=== PATIENT | male | born 1955 | race Caucasian/White ===

== ENCOUNTER → 2016-12-22 | Outpatient (CLI) | payer BC ==
--- NOTE | 2016-12-22 21:56 | REP ---
Clinical: Trauma. Contusion. Technique: AP, lateral, bilateral oblique views of the left first toe. Findings: Age-related degenerative changes are appreciated including subtle cortical irregularity/spurring and joint space narrowing at the metatarsophalangeal and interphalangeal joints. No obvious acute fracture dislocation. No subcutaneous emphysema or radiodense foreign body. Impression: Age-related degenerative changes. No acute fracture or dislocation appreciated. Signed by Morris Bourgeois MD 12/22/2016 09:48 P
== END ==
LOC: M WUC 14:35
PROVIDERS: ATTEND Physician Assistant
DX: S90.212A Contusion of left great toe with damage to nail, initial encounter (principal); X58.XXXA Exposure to other specified factors, initial encounter; Y92.9 Unspecified place or not applicable; Y93.9 Activity, unspecified; Y99.9 Unspecified external cause status

== ENCOUNTER 2017-09-05 03:31 | Emergency (ER) | payer BC ==
[2017-09-05 04:32] LABS: BASO # 0.2 10^3/uL (0.0-0.2); BASO % 0.6 % (0.0-1.0); HEMATOCRIT 49.7 % (42.0-52.0); HEMOGLOBIN 16.1 g/dl (13.5-17.5); IMMATURE GRANULOCYTE % 2.3 % (0-3.0); LYMPH # 2.1 10^3/uL (1.5-4.5); LYMPH % 8.6 % (24.0-44.0); MEAN CORPUSCULAR HEMOGLOBIN 27.5 pg (27.0-33.0); MEAN CORPUSCULAR HGB CONC 32.4 g/dl (32.0-36.5); MONO # 1.4 10^3/uL (0.0-0.8); MONO % 5.7 % (0.0-5.0); NEUTROPHILS # 20.2 10^3/uL (1.8-7.7); NEUTROPHILS % 82.8 % (36.0-66.0); PLATELET COUNT, AUTOMATED 254 10^3/uL (150-450); RED BLOOD COUNT 5.85 10^6/uL (4.30-6.10); WHITE BLOOD COUNT 24.4 10^3/uL (4.0-10.0)
[2017-09-05 04:48] LABS: KETONE, URINE AUTO RFX NEGATIVE (NEGATIVE); LEUKOCYTE ESTERASE UR AUTO RFX NEGATIVE (NEGATIVE); MUCUS, URINE RFX SMALL (NEGATIVE); NITRITE, URINE AUTO RFX NEGATIVE (NEGATIVE); RBC, URINE AUTO RFX 2 /HPF (0-3); SPECIFIC GRAVITY UR AUTO RFX 1.028 (1.002-1.035); SQUAM EPITHELIAL CELL UR AURFX 0 /HPF (0-6); WBC, URINE AUTO RFX 0 /HPF (0-3)
[2017-09-05 04:55] LABS: ALBUMIN/GLOBULIN RATIO 0.85 (1.00-1.93); ALKALINE PHOSPHATASE 196 U/L (45-117); ALT/SGPT 28 U/L (12-78); ANION GAP 6 MEQ/L (8-16); AST/SGOT 19 U/L (7-37); BILIRUBIN,DIRECT 0.1 MG/DL (0.0-0.2); BILIRUBIN,TOTAL 0.4 MG/DL (0.2-1.0); BLOOD UREA NITROGEN 22 MG/DL (7-18); CALCIUM LEVEL 9.1 MG/DL (8.8-10.2); CARBON DIOXIDE LEVEL 32 MEQ/L (21-32); CHLORIDE LEVEL 102 MEQ/L (98-107); CREATININE FOR GFR 1.33 MG/DL (0.70-1.30); GLOMERULAR FILTRATION RATE 57.6 (>49); LIPASE 93 U/L (73-393); POTASSIUM SERUM 4.7 MEQ/L (3.5-5.1); SODIUM LEVEL 140 MEQ/L (136-145); TOTAL PROTEIN 8.7 GM/DL (6.4-8.2)
[2017-09-05 05:14] LABS: GLUCOSE, FASTING 422 MG/DL (70-100)
[2017-09-05] MEDS ORDERED: HumuLIN R (REGULAR) INSULIN (NovoLIN R) **100U/ML** PER UNIT IV (05:30)
[2017-09-05] MEDS: HumuLIN R (REGULAR) INSULIN (NovoLIN R) **100U/ML** PER UNIT IV (05:49)
[2017-09-05] MEDS: NS 500 ML IV (05:49)
[2017-09-05 09:42] LABS: BEDSIDE GLUCOSE 362 MG/DL (80-115)
[2017-09-05 09:42] LABS: BEDSIDE GLUCOSE 284 MG/DL (80-115)
== END 2017-09-05 06:48 | disposition home or self-care (01) ==
LOC: M ED 03:31
DX: E09.65 Drug or chemical induced diabetes mellitus with hyperglycemia (principal); I10 Essential (primary) hypertension; E78.5 Hyperlipidemia, unspecified; J45.909 Unspecified asthma, uncomplicated; K21.9 Gastro-esophageal reflux disease without esophagitis; E03.9 Hypothyroidism, unspecified; F17.200 Nicotine dependence, unspecified, uncomplicated; Z79.82 Long term (current) use of aspirin; Z79.84 Long term (current) use of oral hypoglycemic drugs; Z79.899 Other long term (current) drug therapy
CPT/HCPCS: 83690

== ENCOUNTER 2018-03-22 10:43 | Day surgery (SDC) | payer OTHER, BC ==
[2018-03-22] MEDS: NS 1,000 ML IV (11:00)
[2018-03-22] MEDS ORDERED: PROPOFOL 500 MG/50 ML VIAL As Ordered (12:03)
[2018-03-22] MEDS ORDERED: LIDOCAINE 2% INJ 100 MG/5 ML SDV (FOR ANES.) As Ordered (12:03)
== END 2018-03-22 12:30 | disposition home or self-care (01) ==
LOC: M OPP 10:43
DX: K64.0 First degree hemorrhoids (principal); K57.30 Diverticulosis of large intestine without perforation or abscess without bleeding; I10 Essential (primary) hypertension; E03.9 Hypothyroidism, unspecified; R12 Heartburn; J44.9 Chronic obstructive pulmonary disease, unspecified; Z79.82 Long term (current) use of aspirin; Z79.84 Long term (current) use of oral hypoglycemic drugs; Z79.899 Other long term (current) drug therapy
CPT/HCPCS: 45378

== ENCOUNTER 2018-05-01 11:30 | Emergency (ER) | payer OTHER, BC ==
[~2018-05-01] VITALS: Ht 177.8 cm; Wt 118.2 kg
[~2018-05-01 11:30] MED LIST: ASPI1TAB PO; ATOR40TA75; LISI40TA; MELO15TA28 PO; METF500T13; NAPR-885; OMEP20CA3; PRED20TA; PROAAER10; SYMB16INH INH; SYMBICORT; SYNT25TA; VITA200016 PO
[2018-05-01 12:45] VITALS: BP 168/78
--- NOTE | 2018-05-01 12:47 | REP ---
RIGHT SHOULDER: Three views. HISTORY: Right shoulder pain. Question injury. FINDINGS: The right glenohumeral and acromioclavicular joints are normally aligned. There is no evidence of fracture or subluxation. Periarticular soft tissues are unremarkable. IMPRESSION: Negative right shoulder radiographs. Electronically Signed by Asaf Hutchison MD 05/01/2018 07:26 P
== END 2018-05-01 12:50 | disposition home or self-care (01) ==
LOC: M ED 11:30
DX: M25.511 Pain in right shoulder (principal); E11.9 Type 2 diabetes mellitus without complications; J44.9 Chronic obstructive pulmonary disease, unspecified; K21.9 Gastro-esophageal reflux disease without esophagitis; Z87.891 Personal history of nicotine dependence

== ENCOUNTER → 2018-05-11 | Outpatient (REF) | payer MEDICARE, BC | LOC: M LAB REF 11:48 | PROVIDERS: ATTEND Physician Assistant | DX: N48.1 Balanitis (principal); N34.1 Nonspecific urethritis ==

== ENCOUNTER 2019-04-12 20:41 | Emergency (ER) | payer BC, OTHER ==
[~2019-04-12] VITALS: Ht 177.8 cm; Wt 120.0 kg
[~2019-04-12 20:41] MED LIST changes: -ASPI1TAB PO; +ASPI81TA26 PO; +ATOR1TAB21 PO; +LOSA100T50 PO; +OMEP-172 PO; -OMEP20CA3; -PROAAER10; +PROAAER10 INH; -SYNT25TA; +SYNT25TA PO
[2019-04-12] MEDS ORDERED: HYDR-3713 PO (20:50)
[2019-04-12] MEDS ORDERED: NS 1,000 ML IV ONE (21:30)
[2019-04-12 21:49] LABS: BASO # 0.1 10^3/uL (0.0-0.2); BASO % 0.7 % (0.0-1.0); EOS # 0.1 10^3/uL (0.0-0.5); EOS % 0.5 % (0.0-3.0); HEMATOCRIT 43.4 % (42.0-52.0); HEMOGLOBIN 14.1 g/dl (13.5-17.5); LYMPH # 1.3 10^3/uL (1.5-5.0); LYMPH % 6.4 % (24.0-44.0); MEAN CORPUSCULAR HEMOGLOBIN 27.5 pg (27.0-33.0); MEAN CORPUSCULAR HGB CONC 32.5 g/dl (32.0-36.5); MEAN CORPUSCULAR VOLUME 84.8 fl (80.0-96.0); MONO # 1.3 10^3/uL (0.0-0.8); MONO % 6.6 % (0.0-5.0); NEUTROPHILS # 16.6 10^3/uL (1.5-8.5); NEUTROPHILS % 84.1 % (36.0-66.0); PLATELET COUNT, AUTOMATED 230 10^3/uL (150-450); RED BLOOD COUNT 5.12 10^6/uL (4.30-6.10); WHITE BLOOD COUNT 19.8 10^3/uL (4.0-10.0)
[2019-04-12 21:59] LABS: APPEARANCE, URINE CLOUDY (CLEAR); BACTERIA, URINE AUTO NEGATIVE (NEGATIVE); BILIRUBIN, URINE AUTO NEGATIVE (NEGATIVE); BLOOD, URINE BLOOD 2+ (NEGATIVE); COLOR, URINE YELLOW (YELLOW); GLUCOSE, URINE (UA) AUTO 1+ mg/dL (NEGATIVE); KETONE, URINE AUTO NEGATIVE (NEGATIVE); LEUKOCYTE ESTERASE, URINE AUTO NEGATIVE (NEGATIVE); NITRITE, URINE AUTO NEGATIVE (NEGATIVE); PROTEIN, URINE AUTO NEGATIVE (NEGATIVE); RBC, URINE AUTO 9 /HPF (0-3); SPECIFIC GRAVITY URINE AUTO 1.024 (1.002-1.035); SQUAMOUS EPITHELIAL CELL UR AU 0 /HPF (0-6); URIC ACID CRYSTALS LARGE; UROBILINOGEN, URINE AUTO 0.2 mg/dL (0.0-2.0); WBC, URINE AUTO 0 /HPF (0-3)
[2019-04-12] MEDS ORDERED: ONDANSETRON 4MG/2ML VIAL (J2405) IV ONE (22:15)
[2019-04-12 22:17] LABS: ALBUMIN 3.7 GM/DL (3.2-5.2); ALT/SGPT 25 U/L (12-78); BILIRUBIN,DIRECT 0.1 MG/DL (0.0-0.2); BILIRUBIN,TOTAL 0.5 MG/DL (0.2-1.0); BLOOD UREA NITROGEN 22 MG/DL (7-18); CALCIUM LEVEL 8.8 MG/DL (8.8-10.2); CARBON DIOXIDE LEVEL 26 MEQ/L (21-32); CHLORIDE LEVEL 106 MEQ/L (98-107); CREATININE FOR GFR 1.51 MG/DL (0.70-1.30); GLOMERULAR FILTRATION RATE 49.6 (>49); GLUCOSE, FASTING 193 MG/DL (70-100); LIPASE 52 U/L (73-393); POTASSIUM SERUM 4.1 MEQ/L (3.5-5.1); SODIUM LEVEL 141 MEQ/L (136-145); TOTAL PROTEIN 7.6 GM/DL (6.4-8.2)
[2019-04-12 22:39] LABS: CK-MB VALUE MASS 1.9 NG/ML (<3.6); CPK CREATINE PHOSPHOKINASE 237 U/L (39-308); TROPONIN I < 0.02 NG/ML (< 0.10)
[2019-04-12] MEDS ORDERED: ACETAMINOPHEN 325 MG TAB PO ONE (23:30)
[2019-04-13] MEDS ORDERED: ACETAMINOPHEN TAB 650MG DOSE (2X325MG) PO ONE
--- NOTE | 2019-04-13 01:01 | REPVR ---
PROCEDURE INFORMATION: Exam: CT Abdomen And Pelvis Without Contrast Exam date and time: 04/12/2019 11:47 PM Age: 63 years old Clinical indication: Abdominal pain; Flank; Patient HX: PT complaining left side pain not right as entered; Additional info: Right flank pain, hematuria TECHNIQUE: Imaging protocol: Computed tomography of the abdomen and pelvis without contrast. Radiation optimization: All CT scans at this facility use at least one of these dose optimization techniques: automated exposure control; mA and/or kV adjustment per patient size (includes targeted exams where dose is matched to clinical indication); or iterative reconstruction. COMPARISON: No relevant prior studies available. FINDINGS: Liver: Enlarged low attenuating liver, evidence of hepatic steatosis. Gallbladder and bile ducts: Cholecystectomy clips in the right upper quadrant. Pancreas: Normal. No ductal dilation. Spleen: Normal. No splenomegaly. Adrenals: Normal. No mass. Kidneys and ureters: 1.4 cm left renal exophytic cyst. Punctate papillary calcification in the left kidney. Mild to moderate left renal hydronephrosis without hydroureter. Mild left perinephric stranding. Question already passed calculus versus pyelonephritis, or other obstructing soft tissue lesion, recommend urology followup. Stomach and bowel: Mild colonic diverticulosis without evidence for acute diverticulitis. Appendix: No evidence of appendicitis. Intraperitoneal space: Unremarkable. No free air. No significant fluid collection. Vasculature: Unremarkable. No abdominal aortic aneurysm. Lymph nodes: Unremarkable. No enlarged lymph nodes. Bladder: Unremarkable as visualized. Reproductive: Unremarkable as visualized. Bones/joints: Moderate lumbar spondylosis. Soft tissues: Fat protruding right inguinal hernia. IMPRESSION: Punctate papillary calcification in the left kidney. Mild to moderate left renal hydronephrosis without hydroureter. Mild left perinephric stranding. Question already passed calculus versus pyelonephritis, or other obstructing soft tissue lesion, recommend urology followup. Electronically signed by: Rafael Ruiz On 04/13/2019 01:00:58 AM
[2019-04-13] MEDS ORDERED: KEFL500C17 PO (01:19)
[2019-04-13 01:33] VITALS: BP 206/112
[2019-04-13] MEDS ORDERED: GLIM4TAB3 PO (09:04)
--- NOTE | 2019-04-13 22:37 | ECGEPIP ---
[facility] - ED Test Date: 2019-04-12 Pat Name: DERIK FITZGERALD Department: Room: - Gender: Male [employer] Member: leah : [id number] Requested By: Sisi Patrick FRENCH PASTRY COOK Order Number: [id number] Reading MD: Rafael Orta Measurements Intervals [place] Rate: 87 P: 63 SD: 160 QRS: -53 QRSD: 106 T: 42 QT: 360 QTc: 435 Interpretive Statements SINUS RHYTHM Left axis deviation Delayed anterior R wave progression Nonspecific T wave abnormality Baseline artifact Similar to tracing done 03-09-19 but with more artifact Electronically Signed on 04-13-2019 22:37:02 EST by Rafael Orta
== END 2019-04-13 01:35 | disposition home or self-care (01) ==
LOC: M ED 20:41
DX: N13.2 Hydronephrosis with renal and ureteral calculous obstruction (principal); D72.829 Elevated white blood cell count, unspecified; E11.9 Type 2 diabetes mellitus without complications; I10 Essential (primary) hypertension; J44.9 Chronic obstructive pulmonary disease, unspecified; E03.9 Hypothyroidism, unspecified; K21.9 Gastro-esophageal reflux disease without esophagitis; N13.30 Unspecified hydronephrosis; N20.0 Calculus of kidney; Z79.4 Long term (current) use of insulin; Z79.899 Other long term (current) drug therapy
CPT/HCPCS: 74176; 80048; 80076; 81001; 82550; 82553; 83690; 84484; 85025; 87086; 93005; 96361; 96374; 99284; J2405

== ENCOUNTER 2019-04-13 08:31 | Inpatient (IN) | payer MEDICARE, BC ==
[~2019-04-13] VITALS: Ht 177.8 cm; Wt 120.2 kg
[~2019-04-13 08:31] MED LIST changes: +HYDR-3713 PO; +KEFL500C17 PO
[2019-04-13 09:04] LABS: BASO # 0.1 10^3/uL (0.0-0.2); BASO % 0.8 % (0.0-1.0); EOS # 0.2 10^3/uL (0.0-0.5); EOS % 1.1 % (0.0-3.0); HEMATOCRIT 44.3 % (42.0-52.0); HEMOGLOBIN 13.9 g/dl (13.5-17.5); LYMPH # 1.2 10^3/uL (1.5-5.0); LYMPH % 7.1 % (24.0-44.0); MEAN CORPUSCULAR HEMOGLOBIN 27.3 pg (27.0-33.0); MEAN CORPUSCULAR HGB CONC 31.4 g/dl (32.0-36.5); MEAN CORPUSCULAR VOLUME 86.9 fl (80.0-96.0); MONO # 1.6 10^3/uL (0.0-0.8); MONO % 9.1 % (0.0-5.0); NEUTROPHILS # 13.7 10^3/uL (1.5-8.5); NEUTROPHILS % 80.2 % (36.0-66.0); PLATELET COUNT, AUTOMATED 207 10^3/uL (150-450); WHITE BLOOD COUNT 17.1 10^3/uL (4.0-10.0)
[2019-04-13] MEDS ORDERED: GLIM4TAB3 PO (09:04)
[2019-04-13] MEDS ORDERED: ONDANSETRON 4MG/2ML VIAL (J2405) IV ONE (09:15)
[2019-04-13] MEDS: MORPHINE 4 MG/ML 1ML VIAL/SYRINGE (J2270) IV PRN ×2 (09:16→09:58)
[2019-04-13 09:23] LABS: BLOOD UREA NITROGEN 20 MG/DL (7-18); CALCIUM LEVEL 8.3 MG/DL (8.8-10.2); CARBON DIOXIDE LEVEL 26 MEQ/L (21-32); CHLORIDE LEVEL 107 MEQ/L (98-107); CREATININE FOR GFR 1.74 MG/DL (0.70-1.30); GLOMERULAR FILTRATION RATE 42.1 (>49); GLUCOSE, FASTING 165 MG/DL (70-100); POTASSIUM SERUM 3.8 MEQ/L (3.5-5.1); SODIUM LEVEL 139 MEQ/L (136-145)
[2019-04-13] MEDS ORDERED: HYDROMORPHONE HCL 0.5 MG/ 0.5 ML SYRINGE (J1170 PER 1) IV PRN ×3 (10:15→10:30)
[2019-04-13] MEDS ORDERED: NS 1,000 ML IV SCH (10:15)
[2019-04-13] MEDS ORDERED: ACETAMINOPHEN TAB 650MG DOSE (2X325MG) PO PRN (10:30)
[2019-04-13] MEDS: NS 1,000 ML IV SCH ×2 (10:33→20:41)
[2019-04-13 10:58] LABS: CPK CREATINE PHOSPHOKINASE 230 U/L (39-308); MB/CK RELATIVE INDEX 0.87 (< OR =4); TROPONIN I < 0.02 NG/ML (< 0.10)
[2019-04-13] MEDS ORDERED: cefTRIAXone SOD 1 GM in D5W MINI-BAG PLUS 50 ML IV SCH (11:00)
[2019-04-13] MEDS ORDERED: GLUCAGON FOR INJ 1 MG VIAL (J1610) SC PRN (11:30)
[2019-04-13] MEDS ORDERED: GLUCOSE 4 GM CHEW TABLET PO PRN (11:30)
[2019-04-13] MEDS ORDERED: DEXTROSE 50% 50 ML SYRINGE IV PRN (11:30)
[2019-04-13] MEDS ORDERED: ALBUTEROL SULFATE 2.5 MG/0.5 ML INH NEB SOLN INH PRN (11:30)
[2019-04-13] MEDS: ALBUTEROL SULFATE 2.5 MG/0.5 ML INH NEB SOLN INH SCH ×3 (12:00→19:50)
[2019-04-13] MEDS ORDERED: LABETALOL HCL 100 MG/20 ML VIAL IV STA (12:01)
[2019-04-13] MEDS: SYMBICORT 160/4.5MCG INHALER 6GM INH SCH ×2 (12:06→19:51)
[2019-04-13 12:30] VITALS: BP 160/78
--- NOTE | 2019-04-13 12:37 | REP ---
Urinary tract sonogram: History: Hydronephrosis. Comparison is made with the previous day's CT study. Findings: Scanning at the level of the urinary bladder shows no abnormality. Emptying ureteral jets are confirmed from both ureters on color Doppler interrogation of the bladder lumen. Renal cortical echogenicity pattern is normal bilaterally and contours are smooth. There is no evidence of hydronephrosis, cyst, mass, or calculus in the right kidney. On the left there is mild hydronephrosis. An echogenic focus is seen in the lower pole left kidney suggesting a stone. The right kidney measures 12.0 x 6.1 x 6.0 cm. Left renal dimensions are 12.9 x 7.3 x 7.1 cm. Impression: Mild left-sided hydronephrosis. Probable intrarenal calculus lower pole left kidney. The hydronephrosis on the left appears improved. Otherwise negative urinary tract sonography. Electronically Signed by Asaf Hutchison MD 04/13/2019 12:28 P
--- NOTE | 2019-04-13 13:09 | HPEPDOC ---
General Date of Admission Apr 13, 2019 at 10:21 Date of Service: Apr 13, 2019 Chief Complaint The patient is a 63-year-old male Who presented to the emergency room with complaints of left-sided flank pain radiating to his groin History of Present Illness Patient is 63-year-old male with a PMHx of HTN, DLP, DM2, COPD, Hypothyroidism, Medullary Sponge Kidney disease and GERD who presented to the emergency room with complaints of left-sided flank pain radiating to his groin. Patient reports that he was in the emergency room the day prior for similar symptoms. Patient was found at that point to have a left-sided hydronephrosis and hydroureter based on CT imaging. He was evaluated by the ER provider, and it was hypothesized that he had recently passed a stone. He was advised to go home with oral antibiotics and follow-up with urology as an outpatient. Patient reports that upon returning home, his pain continued to persist and is combative to the emergency room for further evaluation. Patient has reported that the pain occurs on a left-sided flank and radiates down his left groin. He reports the pain as a 9/10, sharp nature and occurs intermittently. Patient reports he has associated nausea without vomiting. Denies any urinary discomfort. Denies any diarrhea currently, but did report a few days of diarrhea prior. Currently, patient reports constipation. Patient has not reported any fevers or chills in the last few weeks. Patient denied chest pain, shortness of breath, palpitations. Patient reports that his appetite is generally normal and denies any significant change in his weight Home Medications Scheduled Atorvastatin Calcium (Atorvastatin Calcium) 20 Mg Tablet, 20 MG PO DAILY, (Reported) Budesonide/Formoterol (Symbicort 160-4.5 Mcg Inhaler) 60 Puff/Inhaler Aers, 2 PUFF INH BID, (Reported) Glimepiride (Glimepiride) 4 Mg Tablet, 4 MG PO QHS, (Reported) Levothyroxine Sodium (Synthroid) 25 Mcg Tab, 25 MCG PO DAILY, (Reported) Losartan Potassium (Losartan Potassium) 100 Mg Tablet, 100 MG PO DAILY, (Reported) Meloxicam (Meloxicam) 15 Mg Tab, 15 MG PO QHS, (Reported) Metformin HCl (Metformin HCl) 500 Mg Tab, 1,000 MG BID, (Reported) Omeprazole (Omeprazole) 20 Mg Cap, 40 MG PO QHS, (Reported) Scheduled PRN Albuterol Sulfate (Proair Hfa) 108 Mcg/Act Aer, 2 PUFF INH Q4H PRN for SHORTNESS OF BREATH, (Reported) Allergies Coded Allergies: No Known Allergies (Verified , 10/29/02) Past Medical History Medical History HTN, DLP, DM2, COPD, Hypothyroidism, Medullary Sponge Kidney disease and GERD Surgical History Cholecystectomy Right shoulder arthroscopy for rotator cuff injury Family History - Patients family history has been reviewed and is currently noncontributory to the current hospitalization Social History - Denies the use of alcohol or illicit drugs; patient reports that he quit smoking about 6 years ago that was a smoker of 40 years at 2-3 PPD - Denies recent travel or sick contacts - Lives alone - Occupation; reports that he works part-time at [employer] Review of Systems Other systems 10 point review of systems complete, all negative otherwise stated in HPI Vital Signs - Vitals: BP 178/84, HR 88, RR 18, Sat 99%RA, Temp 97.6F - General: Lying in bed, No acute distress, Speaking in full sentences, AAOx3 - HEENT: NC, AT, PERRLA, EOMI - CVS: RRR, +S1S2 - Lungs: Fair air entry bilaterally, No appreciable wheezing / rales / rhonchi - Abdomen: Soft, Non-distended, +L CVA tenderness, nontender abdomen - Extremities: No lower extremity edema, No calf tenderness - Neuro: No focal motor or sensory deficit - Skin: No visible rashes Laboratory Data Labs 24H Laboratory Tests 2 04/13/19 08:54: Immature Granulocyte % (Auto) 1.7, Neutrophils (%) (Auto) 80.2H, Lymphocytes (%) (Auto) 7.1L, Monocytes (%) (Auto) 9.1H, Eosinophils (%) (Auto) 1.1, Basophils (%) (Auto) 0.8, Neutrophils # (Auto) 13.7H, Lymphocytes # (Auto) 1.2L, Monocytes # (Auto) 1.6H, Eosinophils # (Auto) 0.2, Basophils # (Auto) 0.1, Nucleated Red Blood Cells % (auto) 0.0, Anion Gap 6L, Glomerular Filtration Rate 42.1L, Uric Acid 5.0, Calcium Level 8.3L, Total Creatine Kinase 230, Creatine Kinase MB 2.0, Creatine Kinase MB Relative Index 0.87, Troponin I < 0.02 04/13/19 10:49: Lactic Acid Level 1.1 CBC/BMP Laboratory Tests 04/13/19 08:54 Plan / VTE VTE Prophylaxis Ordered?: Yes Plan Plan Left flank pain radiating to groin - likely 2/2 renal stone / possible pyelonephritis - Patient has returned back to the emergency room after being discharged for what was suspected as the recently past stone - Physical does reveal left CVA tenderness - Patient remains hemodynamically stable and afebrile - Leukocytosis has improved from yesterday; no lactic acidosis - Urinalysis from yesterday did not reveal any significant signs of infection, but did indicate 2+ blood - Urine culture from 04/12/2019 remains pending - CT abdomen / pelvis 04/12: Punctate papillary calcification in the left kidney. Mild to moderate left renal hydronephrosis without hydroureter. Mild left perinephric stranding. Question already passed calculus versus pyelonephritis, or other obstructing soft tissue lesion, recommend urology followup. - Renal US 04/13: Mild left-sided hydronephrosis. Probable intrarenal calculus lower pole left kidney. The hydronephrosis on the left appears improved. Otherwise negative urinary tract sonography. - At this point, will continue with IV fluid hydration and provide coverage with ceftriaxone pending urine culture - Will continue with pain control with Dilaudid; will titrate down as tolerated - Urology has been called on consultation; discussed case with Dr. Noland, who may possibly take the patient for stenting later today Acute kidney injury - Patients baseline creatinine appears to be ~1.1 - Creatinine currently is at 1.74 which is elevated from yesterday of 1.51 - Will measure strict ins and outs - Will continue with IV fluid hydration Hypertensive urgency - likely 2/2 pain - Patient has not taken any of his a.m. blood pressure medications this morning - Will hold losartan (re: NELY) - will give single dose of labetalol and start amlodipine DLP - c/w atorvastatin DM2 - c/w ISS COPD - No evidence of exacerbation - c/w inhaled therapy as ordered Hypothyroidism - c/w levothyroxine Medullary Sponge Kidney disease GERD - c/w Omeprazole DVT prophylaxis - Will start heparin JOSE CUMMINS MD Apr 13, 2019 13:09
[2019-04-13] MEDS: HEPARIN SOD (PORCINE) 5000 UNITS/ML VIAL SC SCH ×2 (13:12→20:42)
[2019-04-13] MEDS: HumaLOG INSULIN (NovoLOG) PER UNIT SC SCH ×2 (13:13→17:55)
[2019-04-13] MEDS: ATORVASTATIN 20 MG TAB PO SCH (13:13)
[2019-04-13] MEDS: LEVOTHYROXINE 25MCG TABLET (0.025MG) PO SCH (13:14)
[2019-04-13 13:17] VITALS: BP 180/99
[2019-04-13] MEDS: amLODIPine 5 MG TAB PO SCH (13:17)
--- NOTE | 2019-04-13 14:41 | SMCUROLCON ---
Urology Consultation General Date of Consultation 04/13/19 Reason For Consultation This patient is seen for Acute Renal Insufficiency. History of Present Illness The patient is a 63 year-old man with a several day history of flank pain and pelvic pain with nausea and vomiting. Pt was in the ED yesterday. CT non contrast negative for ureteral calculi. Serum Cr has been rising. Pt reports that he has been having severe pain and has not been able to tolerate POs. Past Medical History Medical History reviewed Surgical Hstory reviewed Family History Significant Family History: Noncontributory Social History Alcohol: Denies Medications Current Medications Current Medications Medications (Trade) Dose Ordered Sig/Susan Route PRN Reason Start Time Stop Time Status Last Admin Dose Admin Acetaminophen (Tylenol Tab) 650 mg Q4H PRN PO PAIN OR FEVER 04/13/19 10:30 Albuterol Sulfate (Proventil Neb) 2.5 mg RQ2H PRN INH SOB/WHEEZING 04/13/19 11:30 Albuterol Sulfate (Proventil Neb) 2.5 mg RQID INH 04/13/19 12:00 Amlodipine Besylate (Norvasc) 5 mg DAILY PO 04/13/19 09:00 04/13/19 13:17 Atorvastatin Calcium (Lipitor) 20 mg DAILY PO 04/13/19 09:00 04/13/19 13:13 Budesonide/ Formoterol Fumarate (Symbicort 160/ 4.5mcg) 2 puff RBID INH 04/13/19 08:00 Ceftriaxone Sodium 1 gm/ Dextrose 50 ml @ 100 mls/hr Q24H IV 04/13/19 11:00 04/13/19 13:16 Dextrose (Dextrose 50%) 25 ml ASDIRECTED PRN IV SEE LABEL COMMENTS 04/13/19 11:30 Glucagon (Glucagon) 1 mg ASDIRECTED PRN SC SEE LABEL COMMENTS 04/13/19 11:30 Glucose (Glucose) 16 GM ASDIRECTED PRN PO SEE LABEL COMMENTS 04/13/19 11:30 Heparin Sodium (Porcine) (Heparin) 5,000 units Q8H SC 04/13/19 14:00 04/13/19 13:12 Home Med (Med Rec Complete!) ASDIRECTED XX 04/13/19 10:45 04/13/19 10:40 DC Hydromorphone HCl (Dilaudid) 0.3 mg Q3HP PRN IV MILD PAIN (PS 1-4) 04/13/19 10:30 Hydromorphone HCl (Dilaudid) 0.5 mg Q30M PRN IV MODERATE PAIN (PS 5-7) 04/13/19 10:15 04/13/19 10:30 DC 04/13/19 10:26 Hydromorphone HCl (Dilaudid) 0.6 mg Q3HP PRN IV MODERATE PAIN (PS 5-7) 04/13/19 10:30 Insulin Human Lispro (HumaLOG INSULIN) SEE PROTOCOL TABLE AC SC 04/13/19 12:00 04/13/19 13:13 Insulin Human Lispro (HumaLOG INSULIN) SEE PROTOCOL TABLE QHS SC 04/13/19 21:00 Labetalol HCl (Normodyne, Trandate) 10 mg STAT STAT IV 04/13/19 12:01 04/13/19 12:03 DC Levothyroxine Sodium (Synthroid) 25 mcg DAILY@0600 PO 04/13/19 06:00 04/13/19 13:14 Morphine Sulfate (Morphine Sulfate Inj) 4 mg Q30M PRN IV SEVERE PAIN (PS 8-10) 04/13/19 09:15 04/13/19 09:58 DC 04/13/19 09:58 Omeprazole (PriLOSEC) 40 mg QHS PO 04/13/19 21:00 Sodium Chloride 1,000 ml @ 100 mls/hr Q10H IV 04/13/19 10:15 04/13/19 10:30 DC 04/13/19 10:25 Sodium Chloride 1,000 ml @ 120 mls/hr Q8H20M IV 04/13/19 10:30 04/13/19 10:33 Allergies Allergies: Coded Allergies: No Known Allergies (Verified , 10/29/02) Review of Systems General: Denies: Chills, Night Sweats Constitutional: Denies: Fever Genitourinary: Denies: Dysuria, Frequency, Hematuria, Retention Musculoskeletal: Reports: Back Pain; Denies: Shoulder Pain, Arm Pain Neurological: Denies: Weakness Physical Examination General Exam: Cooperative; No: Mild Distress EYE EXAM: No: Ptosis ENT EXAM: Atraumatic Chest Exam: No: Diminished Abdomen Exam: Soft; No: Tenderness, Hernia Male Exam: No: Edema, Erythema, Tenderness, Discharge, Mass Extremity Exam: No: Cyanosis, Edema Skin Exam: Nl turgor and temperature; No: Rash, Lesion Vital Signs/I&O Vital Signs Date Time Temp Pulse Resp B/P (MAP) Pulse Ox O2 Delivery O2 Flow Rate FiO2 04/13/19 13:17 78 180/99 04/13/19 12:30 96.6 20 96 Room Air Laboratory Data 24H Labs Laboratory Tests 2 04/13/19 08:54: Immature Granulocyte % (Auto) 1.7, Neutrophils (%) (Auto) 80.2H, Lymphocytes (%) (Auto) 7.1L, Monocytes (%) (Auto) 9.1H, Eosinophils (%) (Auto) 1.1, Basophils (%) (Auto) 0.8, Neutrophils # (Auto) 13.7H, Lymphocytes # (Auto) 1.2L, Monocytes # (Auto) 1.6H, Eosinophils # (Auto) 0.2, Basophils # (Auto) 0.1, Nucleated Red Blood Cells % (auto) 0.0, Anion Gap 6L, Glomerular Filtration Rate 42.1L, Uric Acid 5.0, Calcium Level 8.3L, Total Creatine Kinase 230, Creatine Kinase MB 2.0, Creatine Kinase MB Relative Index 0.87, Troponin I < 0.02 04/13/19 10:49: Lactic Acid Level 1.1 04/13/19 13:03: Bedside Glucose (Misc Panel) 173H CBC/BMP Laboratory Tests 04/13/19 08:54 Assessment renal colic, dehydration, elevated serum Cr Plan I reviewed prior CT and current renal sono and no longer feel that stenting is indicated. Will observe for now and follow serum Cr with hydration and supportive care. He can eat now and be NPO PMN in case clinical condition changes, necessitating urologic intervention tomorrow. Will follow. Time Spent on Consult: Time Spent / Consult (Minutes): 30 BIANCA CARROLL MD Apr 13, 2019 14:41
[2019-04-13] MEDS ORDERED: HumaLOG INSULIN (NovoLOG) PER UNIT SC SCH (21:00)
[2019-04-13] MEDS ORDERED: OMEPRAZOLE 20 MG CAP PO SCH (21:00)
[2019-04-13 22:00] VITALS: BP 154/90
[2019-04-14] MEDS: NS 1,000 ML IV SCH (04:31)
[2019-04-14] MEDS: HEPARIN SOD (PORCINE) 5000 UNITS/ML VIAL SC SCH (05:26)
[2019-04-14] MEDS: LEVOTHYROXINE 25MCG TABLET (0.025MG) PO SCH (05:46)
[2019-04-14 06:00] VITALS: BP 149/90
[2019-04-14 07:31] LABS: BASO # 0.1 10^3/uL (0.0-0.2); BASO % 0.9 % (0.0-1.0); EOS # 0.3 10^3/uL (0.0-0.5); EOS % 2.6 % (0.0-3.0); HEMOGLOBIN 13.2 g/dl (13.5-17.5); LYMPH # 1.9 10^3/uL (1.5-5.0); LYMPH % 15.2 % (24.0-44.0); MEAN CORPUSCULAR HGB CONC 31.4 g/dl (32.0-36.5); MEAN CORPUSCULAR VOLUME 86.1 fl (80.0-96.0); MONO # 0.9 10^3/uL (0.0-0.8); MONO % 7.6 % (0.0-5.0); NEUTROPHILS # 8.8 10^3/uL (1.5-8.5); PLATELET COUNT, AUTOMATED 187 10^3/uL (150-450); RED BLOOD COUNT 4.88 10^6/uL (4.30-6.10); WHITE BLOOD COUNT 12.2 10^3/uL (4.0-10.0)
[2019-04-14] MEDS: SYMBICORT 160/4.5MCG INHALER 6GM INH SCH (07:37)
[2019-04-14 07:53] LABS: BLOOD UREA NITROGEN 11 MG/DL (7-18); CALCIUM LEVEL 8.1 MG/DL (8.8-10.2); CARBON DIOXIDE LEVEL 27 MEQ/L (21-32); CHLORIDE LEVEL 109 MEQ/L (98-107); CREATININE FOR GFR 1.16 MG/DL (0.70-1.30); GLOMERULAR FILTRATION RATE > 60.0 (>49); GLUCOSE, FASTING 140 MG/DL (70-100); MAGNESIUM LEVEL 2.1 MG/DL (1.8-2.4); POTASSIUM SERUM 3.8 MEQ/L (3.5-5.1); SODIUM LEVEL 142 MEQ/L (136-145)
--- NOTE | 2019-04-14 08:46 | DS.PDOC ---
Discharge Summary General Date of Admission Apr 13, 2019 at 10:21 Date of Discharge 04/14/2019 Discharge Summary PROCEDURES PERFORMED DURING STAY: [None]. ADMITTING DIAGNOSES / DISCHARGE DIAGNOSES: Left flank pain radiating to groin - likely 2/2 recently passed renal stone; unlikely 2/2 pyelonephritis s/p Acute kidney injury HTN; s/p urgency - likely 2/2 pain DLP DM2 COPD Hypothyroidism Medullary Sponge Kidney disease GERD DVT prophylaxis COMPLICATIONS/CHIEF COMPLAINT: Left flank pain HISTORY OF PRESENT ILLNESS: Patient is 63-year-old male with a PMHx of HTN, DLP, DM2, COPD, Hypoth yroidism, Medullary Sponge Kidney disease and GERD who presented to the emergency room with complaints of left-sided flank pain radiating to his groin. Patient reports that he was in the emergency room the day prior for similar symptoms. Patient was found at that point to have a left-sided hydronephrosis and hydroureter based on CT imaging. He was evaluated by the ER provider, and it was hypothesized that he had recently passed a stone. He was advised to go home with oral antibiotics and follow-up with urology as an outpatient. Patient reports that upon returning home, his pain continued to persist and is combative to the emergency room for further evaluation. Patient has reported that the pain occurs on a left-sided flank and radiates down his left groin. He reports the pain as a 9/10, sharp nature and occurs intermittently. Patient reports he has associated nausea without vomiting. Denies any urinary discomfort. Denies any diarrhea currently, but did report a few days of diarrhea prior. Currently, patient reports constipation. Patient has not reported any fevers or chills in the last few weeks. Patient was initially hospitalist service for suspected left-sided hydronephrosis and acute kidney injury. HOSPITAL COURSE: Left flank pain radiating to groin - likely 2/2 recently passed renal stone; unlikely 2/2 pyelonephritis - This morning patient has reported resolution of his left sided flank pain - No CVA tenderness - Patient remains hemodynamically stable and afebrile - Leukocytosis has improved from yesterday; no lactic acidosis - Urinalysis from yesterday did not reveal any significant signs of infection, but did indicate 2+ blood - CT abdomen / pelvis 04/12: Punctate papillary calcification in the left kidney. Mild to moderate left renal hydronephrosis without hydroureter. Mild left perinephric stranding. Question already passed calculus versus pyelonephritis, or other obstructing soft tissue lesion, recommend urology followup. - Renal US 04/13: Mild left-sided hydronephrosis. Probable intrarenal calculus lower pole left kidney. The hydronephrosis on the left appears improved. Otherwise negative urinary tract sonography. - Urine cultures negative; Will DC Ceftriaxone - Will DC IV fluid hydration - Will DC pain control with Dilaudid; c/w Tylenol PRN - Urology on consultation; Dr. Noland; Renal function has improved - patient will not require stenting at this time - Will discharge home today with PCP and Urology follow up s/p Acute kidney injury - Patients baseline creatinine appears to be ~1.1 - Creatinine currently is at 1.74 which is elevated from yesterday of 1.51 - Will measure strict ins and outs - Will DC IV fluid hydration HTN; s/p urgency - likely 2/2 pain - Patient has not taken any of his a.m. blood pressure medications this morning - Losartan was held on admission (re: NELY) - c/w Amlodipine - On discharge will resume Losartan and DC Amlodipine DLP - c/w atorvastatin DM2 - c/w ISS COPD - No evidence of exacerbation - c/w inhaled therapy as ordered Hypothyroidism - c/w levothyroxine Medullary Sponge Kidney disease GERD - c/w Omeprazole DVT prophylaxis - c/w heparin DISCHARGE MEDICATIONS: Please see below. ALLERGIES: Please see below. PHYSICAL EXAMINATION ON DISCHARGE: Vitals (See below) General: Lying in bed, no acute distress, comfortable, AAOx3 HEENT: NC, AT CVS: RRR, +S1S2 Lungs: Fair air entry b/l, -w/r/r Abdomen: Soft, ND, NT Extremities: - Edema, - Calf tenderness LABORATORY DATA: Please see below. ACTIVITY: [As tolerated]. DISCHARGE PLAN: Follow-up with primary care provider and urology, Dr. Noland within 7 days Remain compliant with treatment plan and medications Return to the ER if you experience any problems DISPOSITION: Home DISCHARGE CONDITION: [Stable]. TIME SPENT ON DISCHARGE: 35 minutes Vital Signs/I&Os Vital Signs Date Time Temp Pulse Resp B/P (MAP) Pulse Ox O2 Delivery O2 Flow Rate FiO2 04/14/19 06:00 98.3 81 19 149/90 (109) 97 04/13/19 22:00 Room Air I&O- Last 24 Hours up to 6 AM0 04/14/19 05:59 Intake Total 930 ml Balance 930 ml Laboratory Data Labs 24H Laboratory Tests 2 04/13/19 08:54: Immature Granulocyte % (Auto) 1.7, Neutrophils (%) (Auto) 80.2H, Lymphocytes (%) (Auto) 7.1L, Monocytes (%) (Auto) 9.1H, Eosinophils (%) (Auto) 1.1, Basophils (%) (Auto) 0.8, Neutrophils # (Auto) 13.7H, Lymphocytes # (Auto) 1.2L, Monocytes # (Auto) 1.6H, Eosinophils # (Auto) 0.2, Basophils # (Auto) 0.1, Nucleated Red Blood Cells % (auto) 0.0, Anion Gap 6L, Glomerular Filtration Rate 42.1L, Uric Acid 5.0, Calcium Level 8.3L, Total Creatine Kinase 230, Creatine Kinase MB 2.0, Creatine Kinase MB Relative Index 0.87, Troponin I < 0.02 04/13/19 10:49: Lactic Acid Level 1.1 04/13/19 13:03: Bedside Glucose (Misc Panel) 173H 04/13/19 16:51: Bedside Glucose (Misc Panel) 162H 04/13/19 20:00: Bedside Glucose (Misc Panel) 180H 04/14/19 05:26: Bedside Glucose (Misc Panel) 147H 04/14/19 07:18: Immature Granulocyte % (Auto) 1.7, Neutrophils (%) (Auto) 72.0H, Lymphocytes (%) (Auto) 15.2L, Monocytes (%) (Auto) 7.6H, Eosinophils (%) (Auto) 2.6, Basophils (%) (Auto) 0.9, Neutrophils # (Auto) 8.8H, Lymphocytes # (Auto) 1.9, Monocytes # (Auto) 0.9H, Eosinophils # (Auto) 0.3, Basophils # (Auto) 0.1, Nucleated Red Blood Cells % (auto) 0.0, Anion Gap 6L, Glomerular Filtration Rate > 60.0, Calcium Level 8.1L, Magnesium Level 2.1 CBC/BMP Laboratory Tests 04/13/19 08:54 04/14/19 07:18 FSBS Laboratory Tests Test 04/13/19 13:03 04/13/19 16:51 04/13/19 20:00 04/14/19 05:26 Range/Units Bedside Glucose (Misc Panel) 173 162 180 147 80-115 MG/DL Discharge Medications Scheduled Atorvastatin Calcium (Atorvastatin Calcium) 20 Mg Tablet, 20 MG PO DAILY, (Reported) Budesonide/Formoterol (Symbicort 160-4.5 Mcg Inhaler) 60 Puff/Inhaler Aers, 2 PUFF INH BID, (Reported) Glimepiride (Glimepiride) 4 Mg Tablet, 4 MG PO QHS, (Reported) Levothyroxine Sodium (Synthroid) 25 Mcg Tab, 25 MCG PO DAILY, (Reported) Losartan Potassium (Losartan Potassium) 100 Mg Tablet, 100 MG PO DAILY, ( Reported) Meloxicam (Meloxicam) 15 Mg Tab, 15 MG PO QHS, (Reported) Metformin HCl (Metformin HCl) 500 Mg Tab, 1,000 MG BID, (Reported) Omeprazole (Omeprazole) 20 Mg Cap, 40 MG PO QHS, (Reported) Scheduled PRN Albuterol Sulfate (Proair Hfa) 108 Mcg/Act Aer, 2 PUFF INH Q4H PRN for SHORTNESS OF BREATH, (Reported) Allergies Coded Allergies: No Known Allergies (Verified , 10/29/02) JOSE CUMMINS MD Apr 14, 2019 08:46
[2019-04-14] MEDS: ATORVASTATIN 20 MG TAB PO SCH (08:56)
[2019-04-14] MEDS: amLODIPine 5 MG TAB PO SCH (08:56)
[2019-04-14] MEDS: HumaLOG INSULIN (NovoLOG) PER UNIT SC SCH (08:57)
--- NOTE | 2019-04-14 10:06 | IPNPDOC ---
Subjective Review oF Systems Chief Complaint The patient is a 63-year-old male admitted with a reason for visit of Acute Renal Insufficiency. Events since Last Encounter Pain is resolved. Cr has returned to normal. General: Denies: Chills Constitutional: Denies: Fever ENT: Denies: Head Aches Skin: Denies: Rash Pulmonary: Denies: Dyspnea Gastrointestinal: Denies: Nausea, Vomiting Genitourinary: Denies: Dysuria, Frequency, Hematuria Psych: Reports: Mood Normal Objective Physical Examination General Exam: Alert, Cooperative; No: Mild Distress Chest Exam: No: Diminished ABDOMEN EXAM: Soft; No: Tenderness Vital Signs/I&O Vital Signs Date Time Temp Pulse Resp B/P (MAP) Pulse Ox O2 Delivery O2 Flow Rate FiO2 04/14/19 06:00 98.3 81 19 149/90 (109) 97 04/13/19 22:00 Room Air I&O- Last 24 Hours up to 6 AM 04/14/19 06:00 Intake Total 930 ml Balance 930 ml Laboratory Data Labs 24H Laboratory Tests 2 04/13/19 10:49: Lactic Acid Level 1.1 04/13/19 13:03: Bedside Glucose (Misc Panel) 173H 04/13/19 16:51: Bedside Glucose (Misc Panel) 162H 04/13/19 20:00: Bedside Glucose (Misc Panel) 180H 04/14/19 05:26: Bedside Glucose (Misc Panel) 147H 04/14/19 07:18: Immature Granulocyte % (Auto) 1.7, Neutrophils (%) (Auto) 72.0H, Lymphocytes (%) (Auto) 15.2L, Monocytes (%) (Auto) 7.6H, Eosinophils (%) (Auto) 2.6, Basophils (%) (Auto) 0.9, Neutrophils # (Auto) 8.8H, Lymphocytes # (Auto) 1.9, Monocytes # (Auto) 0.9H, Eosinophils # (Auto) 0.3, Basophils # (Auto) 0.1, Nucleated Red Blood Cells % (auto) 0.0, Anion Gap 6L, Glomerular Filtration Rate > 60.0, Calcium Level 8.1L, Magnesium Level 2.1 CBC/BMP Laboratory Tests 04/14/19 07:18 FSBS Laboratory Tests Test 04/13/19 13:03 04/13/19 16:51 04/13/19 20:00 04/14/19 05:26 Range/Units Bedside Glucose (Misc Panel) 173 162 180 147 80-115 MG/DL Assessment/Plan Date Seen The patient was seen on 04/14/19. Patient Summary doing better Plan/VTE VTE Prophylaxis Ordered?: Yes Plan Diet: Continue Current Activity: Continue Current Medications: Replete Electrolytes PO Anticipated Discharge: Home BIANCA CARROLL MD Apr 14, 2019 10:06
== END 2019-04-14 10:03 | disposition home or self-care (01) | DRG 694 ==
LOC: M ED 08:31 → M ED INP 10:21 → M MSPAV 12:43
PROVIDERS: ADMIT Internal Medicine; ATTEND Internal Medicine
DX: N20.0 Calculus of kidney (principal); Q61.5 Medullary cystic kidney; N17.9 Acute kidney failure, unspecified; N13.39 Other hydronephrosis; I10 Essential (primary) hypertension; E78.5 Hyperlipidemia, unspecified; E11.9 Type 2 diabetes mellitus without complications; J44.9 Chronic obstructive pulmonary disease, unspecified; E03.9 Hypothyroidism, unspecified; K21.9 Gastro-esophageal reflux disease without esophagitis; Z79.84 Long term (current) use of oral hypoglycemic drugs; Z79.899 Other long term (current) drug therapy; Z90.49 Acquired absence of other specified parts of digestive tract; Z87.891 Personal history of nicotine dependence; D72.829 Elevated white blood cell count, unspecified; I16.0 Hypertensive urgency

== ENCOUNTER 2019-05-03 12:10 | Observation (INO) | payer BC, MEDICARE ==
[~2019-05-03] VITALS: Ht 177.8 cm; Wt 120.4 kg
[~2019-05-03 12:10] MED LIST changes: +GLIM4TAB5 PO; -OMEP-172 PO; +OMEP1CAP73 PO
[2019-05-03 12:55] LABS: BASO # 0.1 10^3/uL (0.0-0.2); BASO % 0.7 % (0.0-1.0); EOS # 0.2 10^3/uL (0.0-0.5); EOS % 1.3 % (0.0-3.0); HEMATOCRIT 47.5 % (42.0-52.0); HEMOGLOBIN 14.9 g/dl (13.5-17.5); LYMPH # 1.7 10^3/uL (1.5-5.0); LYMPH % 10.6 % (24.0-44.0); MEAN CORPUSCULAR HEMOGLOBIN 26.5 pg (27.0-33.0); MEAN CORPUSCULAR HGB CONC 31.4 g/dl (32.0-36.5); MEAN CORPUSCULAR VOLUME 84.4 fl (80.0-96.0); MONO # 0.9 10^3/uL (0.0-0.8); NEUTROPHILS # 12.3 10^3/uL (1.5-8.5); PLATELET COUNT, AUTOMATED 232 10^3/uL (150-450); RED BLOOD COUNT 5.63 10^6/uL (4.30-6.10); WHITE BLOOD COUNT 15.6 10^3/uL (4.0-10.0)
[2019-05-03] MEDS ORDERED: ONDANSETRON 4MG/2ML VIAL (J2405) IV ONE ×2 (13:00→14:30)
[2019-05-03 13:18] LABS: ALT/SGPT 28 U/L (12-78); AMYLASE 44 U/L (25-115); BILIRUBIN,DIRECT 0.2 MG/DL (0.0-0.2); BILIRUBIN,TOTAL 0.6 MG/DL (0.2-1.0); BLOOD UREA NITROGEN 19 MG/DL (7-18); CALCIUM LEVEL 8.6 MG/DL (8.8-10.2); CARBON DIOXIDE LEVEL 25 MEQ/L (21-32); CHLORIDE LEVEL 106 MEQ/L (98-107); CREATININE FOR GFR 1.17 MG/DL (0.70-1.30); GLOMERULAR FILTRATION RATE > 60.0 (>49); GLUCOSE, FASTING 130 MG/DL (70-100); LIPASE 58 U/L (73-393); POTASSIUM SERUM 3.9 MEQ/L (3.5-5.1); SODIUM LEVEL 140 MEQ/L (136-145); TOTAL PROTEIN 7.9 GM/DL (6.4-8.2)
[2019-05-03] MEDS: HYDROMORPHONE HCL 0.5 MG/ 0.5 ML SYRINGE (J1170 PER 1) IV PRN ×2 (13:19→14:13)
--- NOTE | 2019-05-03 14:01 | REP ---
CT abdomen and pelvis without IV or oral contrast: Renal stone protocol. History: Left flank pain. Comparison CT study April 12, 2019. CT findings: Preliminary digital import and export clerk radiograph is unremarkable. The abdomen is largely gasless. The lung bases are clear. There is fatty infiltration of the liver diffusely. There are clips in the gallbladder fossa. No focal hepatic or splenic lesion is seen. No abnormality is noted in the pancreas. Normal adrenal glands are observed bilaterally. No retroperitoneal mass or adenopathy is seen. There are dystrophic calcifications in the prostate gland. Urinary bladder is empty at the time of scanning. There is left colonic diverticulosis without CT evidence of diverticulitis. Small and large bowel loops are otherwise unremarkable in the abdomen and pelvis. A normal appendix is seen in the right lower quadrant. The left kidney remains abnormal showing moderate hydronephrosis. There are two small calcifications in the lower pole collecting system of the left kidney. There is perinephric and periureteral stranding. There is mild hydroureter. A calcification is seen in the proximal ureter just below the level of the lower pole of the left kidney consistent with a tiny 3 mm calculus. No ureteral calculus is observed. There is a faint calcific density in the left side of the collapsed urinary bladder. This could be a recently passed calculus or a calculus in the intramural segment of the ureterovesical junction. Vascular calcifications noted. No right-sided hydronephrosis or right renal calculus is appreciated. The right ureter is unremarkable. Impression: Moderate persistent or recurrent left-sided hydronephrosis. Mild hydroureter. There is a tiny 3 mm calcific opacity in the proximal ureter on the left on today's CT study. There are two tiny intrarenal calculi. There is a possible distal ureterovesical junction calculus versus bladder calculus to the left of midline in the collapsed urinary bladder. Left colonic diverticulosis is also seen. Normal appendix. Fatty infiltration of the liver. Electronically Signed by Asaf Hutchison MD 05/03/2019 06:30 P
[2019-05-03] MEDS ORDERED: NS 1,000 ML IV SCH (15:15)
[2019-05-03] MEDS ORDERED: ACET-897 PO (15:22)
[2019-05-03] MEDS ORDERED: METF-877 PO (15:22)
[2019-05-03] MEDS ORDERED: HYDR-3713 PO (15:22)
[2019-05-03] MEDS ORDERED: GLUCOSE 4 GM CHEW TABLET PO PRN (15:30)
[2019-05-03] MEDS ORDERED: METOCLOPRAMIDE INJ 10MG/2ML VIAL (J2765) IV ONE (15:30)
[2019-05-03] MEDS ORDERED: GLUCAGON FOR INJ 1 MG VIAL (J1610) SC PRN (15:30)
[2019-05-03] MEDS ORDERED: HYDROMORPHONE HCL 0.5 MG/ 0.5 ML SYRINGE (J1170 PER 1) IV PRN ×2 (15:30→21:00)
[2019-05-03] MEDS ORDERED: DEXTROSE 50% 50 ML SYRINGE IV PRN (15:30)
--- NOTE | 2019-05-03 15:47 | HPEPDOC ---
General Date of Admission 05/03/19 Date of Service: May 03, 2019 Chief Complaint The patient is a 63-year-old male admitted with a reason for visit of Flank Pain. Source: Patient Exam Limitations: No limitations Timing/Duration: Other Severity: Severe (this morning) Associated Symptoms: Nausea History of Present Illness This is a 63 years old white male with past medical history of hypertension, hyperlipidemia and diabetes mellitus type 2, COPD, hypothyroidism, medullary sponge kidney and GERD, was recently admitted and discharged from this hospital last month with the kidney stones. He comes back again this time with chief complaints of left flank pain that is sharp in nature, radiating to left groin associated with nausea, worsening with urination, no relief with the pain with medications, severity is 10/10, Patient was found to have multiple smaller stones in the left ureter. This was discussed with Dr. Martini and he recommended to admit patient for IV hydration and pain management, but does not require any surgical intervention at this time. Home Medications Scheduled Atorvastatin Calcium (Atorvastatin Calcium) 20 Mg Tablet, 20 MG PO DAILY, (Reported) Budesonide/Formoterol (Symbicort 160-4.5 Mcg Inhaler) 60 Puff/Inhaler Aers, 2 PUFF INH BID, (Reported) Glimepiride (Glimepiride) 4 Mg Tablet, 4 MG PO QHS, (Reported) Levothyroxine Sodium (Synthroid) 25 Mcg Tab, 25 MCG PO DAILY, (Reported) Losartan Potassium (Losartan Potassium) 100 Mg Tablet, 100 MG PO DAILY, (Reported) Meloxicam (Meloxicam) 15 Mg Tab, 15 MG PO QHS, (Reported) Metformin HCl (Metformin HCl) 1,000 Mg Tablet, 1,000 MG PO BID, (Reported) Omeprazole (Omeprazole) 20 Mg Cap, 40 MG PO QHS, (Reported) Scheduled PRN Acetaminophen (Tylenol Extra Strength) 500 Mg Tablet, 1,000 MG PO Q6H PRN for PAIN, (Reported) Albuterol Sulfate (Proair Hfa) 108 Mcg/Act Aer, 2 PUFF INH Q4H PRN for SHORTNESS OF BREATH, (Reported) Hydrocodone/Acetaminophen (Hydrocodone-Acetamin 5-325 mg) 1 Each Tablet, 1 TAB PO Q4H PRN for PAIN, (Reported) MAY TAKE TWO TABS IF NEEDED Allergies Coded Allergies: No Known Allergies (Verified , 10/29/02) Past Medical History Medical History Hypertension, hyperlipidemia, diabetes mellitus type 2, COPD, hypothyroidism, medullary sponge kidney and GERD Surgical History Cholecystectomy, right shoulder arthroplasty Family History No history of diabetes or cancer in the family Social History * Smoker: former Smoker Alcohol: Denies Drugs: denies A-FIB/CHADSVASC A-FIB History Current/History of A-Fib/PAF?: No Review of Systems Constitutional: Denies: Chills, Fever, Malaise, Night Sweats, Weakness, Fatigue, Weight Loss, Lethargy, Other Eyes: Denies: Pain, Vision change, Conjunctivae inflammation, Eyelid inflammation, Redness, Other ENT: Denies: Head Aches, Ear Pain, Dysphagia, Sinus Congestion, Post Nasal Drip, Sore Throat, Epistaxis, Other Symptoms Skin: Denies: Rash, Lesions, Jaundice, Bruising, Itching, Dry, Breakdown, Nail Changes, Other Pulmonary: Denies: Dyspnea, Cough, Pleuritic Chest Pain, Other Symptoms Gastrointestinal: Denies: Nausea, Vomiting, Abdominal Pain, Diarrhea, Constipation, Melena, Hematochezia, Other Symptoms Genitourinary: Reports: Other Symptoms (. Left flank pain) Hematologic: Denies: Bruising, Bleeding Excessively, Petecchia, Purpura, Enlarged Lymph Nodes, Other Hematologic Endocrine: Denies: Polydipsia, Polyphagia, Polyuria, Heat Intolerance, Cold Intolerance, Other Endocrine Sx Musculoskeletal: Denies: Neck Pain, Back Pain, Shoulder Pain, Arm Pain, Hand Pain, Leg Pain, Foot Pain, Joint Pain, Muscle Pain, Spasms, Other Symptoms Neurological: Denies: Weakness, Numbness, Incoordination, Change in speech, Confusion, Seizures, Other Symptoms Psych: Denies: Mood Normal, Anxiety, Depression, Memory Issues, Thoughts of Self Harm, Anger, Thoughts of Harming Other, Other Psych Physical Examination General Exam: Positive: Alert, Cooperative Eye Exam: Positive: PERRLA, Conjunctiva & lids normal ENT Exam: Positive: Atraumatic Neck Exam: Positive: Supple Chest Exam: Positive: Normal air movement Heart Exam: Positive: Rate Normal, Normal S1, Normal S2 Abdomen Exam: Positive: Normal bowel sounds, Soft, Other (, left CVA tenderness. Positive) Extremity Exam: Positive: Normal pulses Skin Exam: Positive: Nl turgor and temperature Neuro Exam: Positive: Strength at 5/5 X4 ext, Sensation Intact, Cranial Nerves 3-12 NL Vital Signs Vital Signs Date Time Temp Pulse Resp B/P (MAP) Pulse Ox O2 Delivery O2 Flow Rate FiO2 05/03/19 14:23 18 05/03/19 14:10 69 92 Room Air 05/03/19 14:00 160/72 (101) 05/03/19 13:49 95.4 Laboratory Data Labs 24H Laboratory Tests 2 05/03/19 12:24: Urine Color YELLOW, Urine Appearance TURBIDH, Urine pH 5.0, Urine Specific Doyle 1.021, Urine Protein 2+H, Urine Glucose (UA) NEGATIVE, Urine Ketones NEGATIVE, Urine Blood 3+H, Urine Nitrite NEGATIVE, Urine Bilirubin NEGATIVE, Urine Urobilinogen 0.2, Urine Leukocyte Esterase NEGATIVE, Urine WBC (Auto) 0, Urine RBC (Auto) TNTCH, Urine Hyaline Casts (Auto) 0, Urine Bacteria (Auto) NEGATIVE, Urine Squamous Epithelial Cells 0, Urine Calcium Oxalate Cryst (Auto) SMALL, Urine Uric Acid Crystals (Auto) LARGE, Urine Mucus (Auto) SMALL, Urine Sperm (Auto) 05/03/19 12:37: Immature Granulocyte % (Auto) 2.4, Neutrophils (%) (Auto) 79.0H, Lymphocytes (%) (Auto) 10.6L, Monocytes (%) (Auto) 6.0H, Eosinophils (%) (Auto) 1.3, Basophils (%) (Auto) 0.7, Neutrophils # (Auto) 12.3H, Lymphocytes # (Auto) 1.7, Monocytes # (Auto) 0.9H, Eosinophils # (Auto) 0.2, Basophils # (Auto) 0.1, Nucleated Red Blood Cells % (auto) 0.0, Activated Partial Thromboplast Time 34.5, Anion Gap 9, Glomerular Filtration Rate > 60.0, Calcium Level 8.6L, Total Bilirubin 0.6, Direct Bilirubin 0.2, Aspartate Amino Transf (AST/SGOT) 19, Alanine Aminotransferase (ALT/SGPT) 28, Alkaline Phosphatase 101, Total Protein 7.9, Albumin 4.0, Albumin/Globulin Ratio 1.03, Amylase Level 44, Lipase 58L 05/03/19 12:38: POC Glucose (Misc Panel) 134H, POC Sodium (Misc Panel) 139, POC Potassium (Misc Panel) 3.8, POC Chloride (Misc Panel) 101, POC Total CO2 (Misc Panel) 26.0, POC Blood Urea Nitrogen (Misc Panel 20, POC Ionized Calcium (Misc Panel) 4.7, POC Creatinine (Misc Panel) 1.1, POC Hematocrit (Misc Panel) 45.0 CBC/BMP Laboratory Tests 05/03/19 12:37 Microbiology Microbiology 05/03/19 Blood Culture, Received Pending Problems (1) Ureterolithiasis Status: Acute Problem Text: 62 years old, obese, white male with past medical history of medullary sponge kidney, hypertension, diabetes mellitus type 2, hyperlipidemia, COPD, hypothyroidism, was recently admitted and discharged with a similar problem comes back again with complaining of left-sided flank pains with nausea since this morning. Patient. WBC count 15.6, hemoglobin 14.9, electrolytes are normal with BUN 18 and creatinine 1.17. UA shows large amount of blood, lipase 58. CT of the abdomen and pelvis shows moderate persistent not recurrent left-sided hydronephrosis with a mild hydroureter and tiny kalemia 3, mean medullary stone in the proximal ureter on the left side Admit patient to medical floor for IV hydration and pain management IV fluid normal saline 150 mL per hour Morphine sulfate 4 mg IV every 4 hours when necessary Zofran 4 mg IV every 6 hours when necessary Flomax 0.4 mg by mouth daily at bedtime To Vini was called from ED, but has very small size of stones he does not recommend any surgical intervention at the present time. DVT prophylaxis with bilateral SCDs Nothing by mouth except ice chips As tolerated (2) HTN (hypertension) Status: Chronic Problem Text: Continue home meds (3) Hyperlipidemia Status: Chronic Problem Text: Continue home meds (4) Diabetes mellitus Status: Chronic Problem Text: Hold by mouth oral hypoglycemic agent as patient is nothing by mouth Sick blood sugar every 6 hours with insulin coverage (5) Hypothyroid Status: Chronic Problem Text: Continue home meds Plan / VTE VTE Prophylaxis Ordered?: Yes YORDAN ROQUE MD May 03, 2019 15:47
[2019-05-03 16:15] VITALS: BP 151/80
[2019-05-03] MEDS: NS 1,000 ML IV SCH ×2 (16:52→22:44)
[2019-05-03] MEDS: MORPHINE 4 MG/ML 1ML VIAL/SYRINGE (J2270) IV PRN ×2 (17:39→22:44)
[2019-05-03] MEDS: HumaLOG INSULIN (NovoLOG) PER UNIT SC SCH (18:00)
[2019-05-03] MEDS: ONDANSETRON 4MG/2ML VIAL (J2405) IV PRN ×2 (18:32→22:44)
[2019-05-03] MEDS ORDERED: ALBUTEROL 90 MCG/ACT 8GM HFA INHALER INH PRN (18:45)
[2019-05-03] MEDS: SYMBICORT 160/4.5MCG INHALER 6GM INH SCH (20:27)
[2019-05-03] MEDS: OMEPRAZOLE 20 MG CAP PO SCH (21:16)
[2019-05-03] MEDS: TAMSULOSIN 0.4 MG CAP PO SCH (21:16)
[2019-05-03 22:00] VITALS: BP 184/94
[2019-05-03 23:00] VITALS: BP 158/91
[2019-05-04] MEDS: MORPHINE 4 MG/ML 1ML VIAL/SYRINGE (J2270) IV PRN ×2 (03:51→09:19)
[2019-05-04] MEDS: ONDANSETRON 4MG/2ML VIAL (J2405) IV PRN ×2 (03:51→09:17)
[2019-05-04] MEDS ORDERED: PROMETHAZINE INJ 25 MG/ML VIAL (J2550) IV ONE (04:45)
[2019-05-04] MEDS: NS 1,000 ML IV SCH (05:20)
[2019-05-04] MEDS: LEVOTHYROXINE 25MCG TABLET (0.025MG) PO SCH (05:30)
[2019-05-04] MEDS: HumaLOG INSULIN (NovoLOG) PER UNIT SC SCH ×2 (06:00)
[2019-05-04 06:36] LABS: HEMATOCRIT 42.2 % (42.0-52.0); HEMOGLOBIN 13.6 g/dl (13.5-17.5); MEAN CORPUSCULAR HEMOGLOBIN 27.2 pg (27.0-33.0); MEAN CORPUSCULAR HGB CONC 32.2 g/dl (32.0-36.5); MEAN CORPUSCULAR VOLUME 84.4 fl (80.0-96.0); PLATELET COUNT, AUTOMATED 216 10^3/uL (150-450); WHITE BLOOD COUNT 21.1 10^3/uL (4.0-10.0)
[2019-05-04 07:07] LABS: ALBUMIN 3.4 GM/DL (3.2-5.2); BILIRUBIN,TOTAL 0.5 MG/DL (0.2-1.0); CALCIUM LEVEL 7.9 MG/DL (8.8-10.2); CREATININE FOR GFR 1.82 MG/DL (0.70-1.30); TOTAL PROTEIN 7.5 GM/DL (6.4-8.2)
[2019-05-04 07:29] VITALS: BP 156/91
[2019-05-04] MEDS: SYMBICORT 160/4.5MCG INHALER 6GM INH SCH ×2 (07:30→19:45)
[2019-05-04] MEDS ORDERED: LevoFLOXacin IV 500 MG in IV 1 EA IV SCH (07:30)
[2019-05-04] MEDS ORDERED: LevoFLOXacin IV 750 MG in IV 1 EA IV SCH (08:00)
[2019-05-04] MEDS: LOSARTAN 50 MG TAB PO SCH (08:56)
[2019-05-04] MEDS: ATORVASTATIN 20 MG TAB PO SCH (08:56)
--- NOTE | 2019-05-04 11:09 | IPNPDOC ---
Subjective Date Seen The patient was seen on 05/04/19. Subjective Chief Complaint/HPI Patient feeling a lot better today. Pain has significantly decreased, but still does gets twinges as per patient, once in a while General: Denies: ROS Unobtainable, Chills, Night Sweats, Fatigue, Malaise, Normal Appetite, Other Symptoms Constitutional: Denies: Chills, Fever, Malaise, Night Sweats, Weakness, Fatigue, Weight Loss, Lethargy, Other Skin: Denies: Rash, Lesions, Jaundice, Bruising, Itching, Dry, Breakdown, Nail Changes, Other Pulmonary: Denies: Dyspnea, Cough, Pleuritic Chest Pain, Other Symptoms Cardiovascular: Denies: Chest Pain, Palpitations, Orthopnea, Paroxysmal Noc. Dyspnea, Edema, Lt Headedness, Other Symptoms Gastrointestinal: Reports: Abdominal Pain Musculoskeletal: Denies: Neck Pain, Back Pain, Shoulder Pain, Arm Pain, Hand Pain, Leg Pain, Foot Pain, Joint Pain, Muscle Pain, Spasms, Other Symptoms Neurological: Denies: Weakness, Numbness, Incoordination, Change in speech, Confusion, Seizures, Other Symptoms Objective Physical Examination ENT Exam: Positive: Atraumatic Neck Exam: Positive: Supple Chest Exam: Positive: Normal air movement Heart Exam: Positive: Rate Normal, Normal S1, Normal S2 Abdomen Exam: Positive: Normal bowel sounds, Soft, Other (, left CVA tenderness. Positive) Extremity Exam: Positive: Normal pulses Skin Exam: Positive: Nl turgor and temperature Neuro Exam: Positive: Strength at 5/5 X4 ext, Sensation Intact, Cranial Nerves 3-12 NL Assessment /Plan Problems (1) Ureterolithiasis Status: Acute Problem Text: 62 years old, obese, white male with past medical history of medullary sponge kidney, hypertension, diabetes mellitus type 2, hyperlipidemia, COPD, hypothyroidism, was recently admitted and discharged with a similar problem comes back again with complaining of left-sided flank pains with nausea since this morning. Patient. WBC count 15.6, hemoglobin 14.9, electrolytes are normal with BUN 18 and creatinine 1.17. UA shows large amount of blood, lipase 58. CT of the abdomen and pelvis shows moderate persistent not recurrent left-sided hydronephrosis with a mild hydroureter and tiny kalemia 3, mean medullary stone in the proximal ureter on the left side Admit patient to medical floor for IV hydration and pain management Patient was started on IV fluids normal saline under 50 mL per hour Patient's symptoms improved very well with IV morphine sulfate, Zofran and Flomax as per orders Failure. Advance diet today and DC IV fluids. If when he is taken oral hydration (2) Diabetes mellitus Status: Chronic Problem Text: Fingerstick blood sugar every before meals and at bedtime with coverage (3) Hyperlipidemia Status: Chronic Problem Text: Continue home meds (4) HTN (hypertension) Status: Chronic Problem Text: Opinion home meds (5) Hypothyroid Status: Chronic Problem Text: Continue home meds (6) Leukocytosis Status: Acute Problem Text: Etiology of leukocytosis not cleared could be UTI, but UA does not show any infection. Could be elevated secondary to acute phase reaction Nobles start Levaquin as a prophylactic agent and follow CBC in a.m. Plan/VTE VTE Prophylaxis Ordered?: Yes VS, I&O, 24H, Fishbone Vital Signs/I&O Vital Signs Date Time Temp Pulse Resp B/P (MAP) Pulse Ox O2 Delivery O2 Flow Rate FiO2 05/04/19 09:40 16 05/04/19 09:19 97 151/81 93 Room Air 05/04/19 07:29 97.8 I&O- Last 24 Hours up to 6 AM 05/04/19 06:00 Intake Total 2130 ml Output Total 1415 ml Balance 715 ml Laboratory Data 24H LABS Laboratory Tests 2 05/03/19 12:24: Urine Color YELLOW, Urine Appearance TURBIDH, Urine pH 5.0, Urine Specific [place] 1.021, Urine Protein 2+H, Urine Glucose (UA) NEGATIVE, Urine Ketones NEGATIVE, Urine Blood 3+H, Urine Nitrite NEGATIVE, Urine Bilirubin NEGATIVE, Urine Urobilinogen 0.2, Urine Leukocyte Esterase NEGATIVE, Urine WBC (Auto) 0, Urine RBC (Auto) TNTCH, Urine Hyaline Casts (Auto) 0, Urine Bacteria (Auto) NEG ATIVE, Urine Squamous Epithelial Cells 0, Urine Calcium Oxalate Cryst (Auto) SMALL, Urine Uric Acid Crystals (Auto) LARGE, Urine Mucus (Auto) SMALL, Urine Sperm (Auto) 05/03/19 12:37: Immature Granulocyte % (Auto) 2.4, Neutrophils (%) (Auto) 79.0H, Lymphocytes (%) (Auto) 10.6L, Monocytes (%) (Auto) 6.0H, Eosinophils (%) (Auto) 1.3, Basophils (%) (Auto) 0.7, Neutrophils # (Auto) 12.3H, Lymphocytes # (Auto) 1.7, Monocytes # (Auto) 0.9H, Eosinophils # (Auto) 0.2, Basophils # (Auto) 0.1, Nucleated Red Blood Cells % (auto) 0.0, Activated Partial Thromboplast Time 34.5, Anion Gap 9, Glomerular Filtration Rate > 60.0, Calcium Level 8.6L, Total Bilirubin 0.6, Direct Bilirubin 0.2, Aspartate Amino Transf (AST/SGOT) 19, Alanine Aminotransferase (ALT/SGPT) 28, Alkaline Phosphatase 101, Total Protein 7.9, Albumin 4.0, Albumin/Globulin Ratio 1.03, Amylase Level 44, Lipase 58L 05/03/19 12:38: POC Glucose (Misc Panel) 134H, POC Sodium (Misc Panel) 139, POC Potassium (Misc Panel) 3.8, POC Chloride (Misc Panel) 101, POC Total CO2 (Misc Panel) 26.0, POC Blood Urea Nitrogen (Misc Panel 20, POC Ionized Calcium (Misc Panel) 4.7, POC Creatinine (Misc Panel) 1.1, POC Hematocrit (Misc Panel) 45.0 05/03/19 15:50: Bedside Glucose (Misc Panel) 154H 05/03/19 17:49: Bedside Glucose (Misc Panel) 176H 05/04/19 00:06: Bedside Glucose (Misc Panel) 171H 05/04/19 05:41: Nucleated Red Blood Cells % (auto) 0.0, Anion Gap 7L, Glomerular Filtration Rate 40.0L, Calcium Level 7.9L, Total Bilirubin 0.5, Aspartate Amino Transf (AST/SGOT) 19, Alanine Aminotransferase (ALT/SGPT) 24, Alkaline Phosphatase 94, Total Protein 7.5, Albumin 3.4, Albumin/Globulin Ratio 0.83L 05/04/19 06:07: Bedside Glucose (Misc Panel) 148H CBC/BMP Laboratory Tests 05/03/19 12:37 05/04/19 05:41 Microbiology Microbiology 05/03/19 Blood Culture, Received Pending YORDAN ROQUE MD May 04, 2019 11:09
[2019-05-04 14:00] VITALS: BP 167/83
[2019-05-04] MEDS: TAMSULOSIN 0.4 MG CAP PO SCH (20:24)
[2019-05-04] MEDS: OMEPRAZOLE 20 MG CAP PO SCH (20:24)
[2019-05-04 22:00] VITALS: BP 140/98
[2019-05-04] MEDS: ACETAMINOPHEN TAB 650MG DOSE (2X325MG) PO PRN (22:40)
[2019-05-04 22:45] VITALS: BP 162/84
[2019-05-05] MEDS: LEVOTHYROXINE 25MCG TABLET (0.025MG) PO SCH (05:50)
[2019-05-05 06:00] VITALS: BP 156/93
[2019-05-05 06:40] LABS: BASO # 0.1 10^3/uL (0.0-0.2); BASO % 1.1 % (0.0-1.0); EOS # 0.3 10^3/uL (0.0-0.5); EOS % 2.5 % (0.0-3.0); HEMATOCRIT 40.5 % (42.0-52.0); HEMOGLOBIN 12.4 g/dl (13.5-17.5); LYMPH # 1.8 10^3/uL (1.5-5.0); LYMPH % 16.6 % (24.0-44.0); MEAN CORPUSCULAR HEMOGLOBIN 26.2 pg (27.0-33.0); MEAN CORPUSCULAR HGB CONC 30.6 g/dl (32.0-36.5); MEAN CORPUSCULAR VOLUME 85.6 fl (80.0-96.0); MONO # 0.9 10^3/uL (0.0-0.8); MONO % 7.7 % (0.0-5.0); NEUTROPHILS # 7.7 10^3/uL (1.5-8.5); NEUTROPHILS % 69.8 % (36.0-66.0); PLATELET COUNT, AUTOMATED 184 10^3/uL (150-450); RED BLOOD COUNT 4.73 10^6/uL (4.30-6.10); WHITE BLOOD COUNT 11.1 10^3/uL (4.0-10.0)
[2019-05-05 07:11] LABS: ALBUMIN 3.3 GM/DL (3.2-5.2); BILIRUBIN,TOTAL 0.4 MG/DL (0.2-1.0); CALCIUM LEVEL 8.6 MG/DL (8.8-10.2); CREATININE FOR GFR 1.33 MG/DL (0.70-1.30); GLOMERULAR FILTRATION RATE 57.4 (>49); POTASSIUM SERUM 3.8 MEQ/L (3.5-5.1); TOTAL PROTEIN 7.5 GM/DL (6.4-8.2)
[2019-05-05] MEDS: SYMBICORT 160/4.5MCG INHALER 6GM INH SCH (07:39)
[2019-05-05] MEDS: ACETAMINOPHEN TAB 650MG DOSE (2X325MG) PO PRN (07:41)
[2019-05-05 07:42] VITALS: BP 132/95
[2019-05-05] MEDS: ATORVASTATIN 20 MG TAB PO SCH (07:42)
[2019-05-05] MEDS: LOSARTAN 50 MG TAB PO SCH (07:42)
--- NOTE | 2019-05-05 09:08 | IPNPDOC ---
Subjective Date Seen The patient was seen on 05/05/19. Subjective Chief Complaint/HPI Patient complaining of severe pain in both groins last night and is still present but is not as severe as last night as per patient, he possibly passed stones General: Denies: ROS Unobtainable, Chills, Night Sweats, Fatigue, Malaise, Normal Appetite, Other Symptoms Constitutional: Denies: Chills, Fever, Malaise, Night Sweats, Weakness, Fatigue, Weight Loss, Lethargy, Other Skin: Denies: Rash, Lesions, Jaundice, Bruising, Itching, Dry, Breakdown, Nail Changes, Other Pulmonary: Denies: Dyspnea, Cough, Pleuritic Chest Pain, Other Symptoms Cardiovascular: Denies: Chest Pain, Palpitations, Orthopnea, Paroxysmal Noc. Dyspnea, Edema, Lt Headedness, Other Symptoms Gastrointestinal: Denies: Nausea, Vomiting, Abdominal Pain, Diarrhea, Constipation, Melena, Hematochezia, Other Symptoms Genitourinary: Reports: Other Symptoms (bilateral flank and inguinal area pain) Endocrine: Denies: Polydipsia, Polyphagia, Polyuria, Heat Intolerance, Cold Intolerance, Other Endocrine Sx Musculoskeletal: Denies: Neck Pain, Back Pain, Shoulder Pain, Arm Pain, Hand Pain, Leg Pain, Foot Pain, Joint Pain, Muscle Pain, Spasms, Other Symptoms Neurological: Denies: Weakness, Numbness, Incoordination, Change in speech, Confusion, Seizures, Other Symptoms Objective Physical Examination ENT Exam: Positive: Atraumatic Neck Exam: Positive: Supple Chest Exam: Positive: Normal air movement Heart Exam: Positive: Rate Normal, Normal S1, Normal S2 Abdomen Exam: Positive: Normal bowel sounds, Soft, Other (, left CVA tenderness. Positive) Extremity Exam: Positive: Normal pulses Skin Exam: Positive: Nl turgor and temperature Neuro Exam: Positive: Strength at 5/5 X4 ext, Sensation Intact, Cranial Nerves 3-12 NL Assessment /Plan Problems (1) Ureterolithiasis Status: Acute Problem Text: 62 years old, obese, white male with past medical history of medullary sponge kidney, hypertension, diabetes mellitus type 2, hyperlipidemia, COPD, hypothyroidism, was recently admitted and discharged with a similar problem comes back again with complaining of left-sided flank pains with nausea since this morning. Patient. WBC count 15.6, hemoglobin 14.9, electrolytes are normal with BUN 18 and creatinine 1.17. UA shows large amount of blood, lipase 58. CT of the abdomen and pelvis shows moderate persistent not recurrent left-sided hydronephrosis with a mild hydroureter and tiny kalemia 3, mean medullary stone in the proximal ureter on the left side Patient has been tolerating oral hydration He developed severe pain in bilateral inguinal areas and flank last night, resolved with pain meds . We will repeat CT of the abdomen and pelvis without contrast to relocate the position of stones and if there is any worsening of hydronephrosis Continue present care. Further management depends on repeat CT of the abdomen and pelvis (2) Diabetes mellitus Status: Chronic Problem Text: Fingerstick blood sugar every before meals and at bedtime with coverage (3) Hyperlipidemia Status: Chronic Problem Text: Continue home meds (4) HTN (hypertension) Status: Chronic Problem Text: Opinion home meds (5) Hypothyroid Status: Chronic Problem Text: Continue home meds (6) Leukocytosis Status: Acute Problem Text: Mucositis is improved with IV Levaquin. Even though urine wasn't consistent with UTI. Patient. WBC count is 11.1 today and will continue by IV antibiotics prophylactically Plan/VTE VTE Prophylaxis Ordered?: Yes VS, I&O, 24H, Fishbone Vital Signs/I&O Vital Signs Date Time Temp Pulse Resp B/P (MAP) Pulse Ox O2 Delivery O2 Flow Rate FiO2 05/05/19 07:42 132/95 05/05/19 06:00 97.7 81 18 96 Room Air I&O- Last 24 Hours up to 6 AM 05/05/19 05:59 Intake Total 3790 ml Output Total 1175 ml Balance 2615 ml Laboratory Data 24H LABS Laboratory Tests 2 05/04/19 11:33: Bedside Glucose (Misc Panel) 190H 05/05/19 05:31: Anion Gap 9, Glomerular Filtration Rate 57.4, Calcium Level 8.6L, Total Bilirubin 0.4, Aspartate Amino Transf (AST/SGOT) 15, Alanine Aminotransferase (ALT/SGPT) 23, Alkaline Phosphatase 91, Total Protein 7.5, Albumin 3.3, Albumin/Globulin Ratio 0.79L 05/05/19 06:19: Immature Granulocyte % (Auto) 2.3, Neutrophils (%) (Auto) 69.8H, Lymphocytes (%) (Auto) 16.6L, Monocytes (%) (Auto) 7.7H, Eosinophils (%) (Auto) 2.5, Basophils (%) (Auto) 1.1H, Neutrophils # (Auto) 7.7, Lymphocytes # (Auto) 1.8, Monocytes # (Auto) 0.9H, Eosinophils # (Auto) 0.3, Basophils # (Auto) 0.1, Nucleated Red Blood Cells % (auto) 0.0 CBC/BMP Laboratory Tests 05/05/19 05:31 05/05/19 06:19 Microbiology Microbiology 05/03/19 Blood Culture - Preliminary, Resulted No growth after 24 hours . All specim... YORDAN ROQUE MD May 05, 2019 09:08
--- NOTE | 2019-05-05 09:52 | REP ---
CT ABDOMEN AND PELVIS WITHOUT CONTRAST: CT abdomen and pelvis performed without oral or IV contrast. Sagittal and coronal reconstruction images are performed. Comparison made with prior study of 05/03/2019. Visualized lung bases demonstrate mild fibroatelectatic changes. There is again noted diffuse fatty infiltration of the liver. The patient has had a prior cholecystectomy. The spleen is grossly unremarkable. No adrenal gland mass is seen. Pancreas is grossly unremarkable. There is no right hydroureteronephrosis or nephrolithiasis. On the left the previously noted moderate hydronephrosis has improved with very mild residual left hydronephrosis. The previously noted calculus in the proximal left ureter is no longer visualized. There is a punctate calculus in the left lower pole collecting system. There is a tiny punctate bladder calculus noted. There is atherosclerotic calcification of the abdominal aorta without aneurysm. No adenopathy seen. There is no free air or free fluid. There is no bowel thickening. The appendix is normal. Sigmoid diverticulosis is noted without acute diverticulitis. There are degenerative changes of the spine. IMPRESSION: Previously noted tiny calculus in the proximal left ureter is no longer visualized. There is improvement of moderate left hydronephrosis with very mild residual left hydronephrosis. There is no left hydroureter. There is a punctate calculus in the bladder. Electronically Signed by Perez Taylor MD 05/05/2019 03:49 P
[2019-05-05] MEDS ORDERED: LEVA1TAB2 PO (10:37)
[2019-05-05] MEDS ORDERED: HYDR-3713 PO (10:37)
--- NOTE | 2019-05-05 10:44 | DS.PDOC ---
Discharge Summary General Date of Admission May 03, 2019 at 12:11 Date of Discharge 05/05/19 Discharge Summary PROCEDURES PERFORMED DURING STAY: None. ADMITTING DIAGNOSES: 1. Ureterolithiasis. DISCHARGE DIAGNOSES: 1. Ureterolithiasis, diabetes mellitus type 2, COPD, hypothyroidism, medullary sponge kidney and GERD, hypertension, hyperlipidemia COMPLICATIONS/CHIEF COMPLAINT: Ureterolithiasis. HISTORY OF PRESENT ILLNESS: This is a 63 years old white male with past medical history of hypertension, hyperlipidemia and diabetes mellitus type 2, COPD, hypothyroidism, medullary sponge kidney and GERD, was recently admitted and discharged from this hospital last month with the kidney stones. He comes back again this time with chief complaints of left flank pain that is sharp in nature, radiating to left groin associated with nausea, worsening with urination, no relief with the pain with medications, severity is 10/10, . HOSPITAL COURSE: Patient was admitted to medical floor. He was started on IV h ydration, oral hypoglycemic and placed on hold and started on fingerstick blood sugar with coverage. Patient was started on pain management with morphine and Zofran for nausea, vomiting.Patient was found to have multiple smaller stones in the left ureter. This was discussed with Dr. Martini and he recommended to admit patient for IV hydration and pain management, but does not require any surgical intervention at this time. Patient slowly responded very well, but he was still having some pain last night and hence the repeat CAT scan of the abdomen and pelvis was done which showed stones have been passed and the mild hydro-nephrosis has resolved. Patient's WBC count was 21,000 yesterday and once a started on Levaquin. His white count is essentially within normal limits. Patient is asymptomatic, tolerating oral hydration. He can be discharged home on oral pain medications as well as a by mouth Levaquin as a prophylactic agent. Patient will follow with Dr. Martini as an outpatient.. DISCHARGE MEDICATIONS: Please see below. ALLERGIES: Please see below. PHYSICAL EXAMINATION ON DISCHARGE: VITAL SIGNS: Please see below. GENERAL: Within normal limits HEENT: Extra ocular muscles intact NECK: Supple CARDIOVASCULAR EXAMINATION: S1, S2, regular RESPIRATORY EXAMINATION: Clear to A&P ABDOMINAL EXAMINATION: Benign EXTREMITIES: No clubbing, cyanosis, edema SKIN: Within normal limits NEUROLOGICAL EXAMINATION: . No focal motor sensory deficit PSYCHIATRIC EXAMINATION: Within normal limits LABORATORY DATA: Please see below. IMAGING: CT abdomen and pelvis:Previously noted tiny calculus in the proximal left ureter is no longer visualized. There is improvement of moderate left hydronephrosis with very mild residual left hydronephrosis. There is no left hydroureter. There is a punctate calculus in the bladder. PROGNOSIS: Good ACTIVITY: As tolerated. DIET: As tolerated DISCHARGE PLAN: Follow with Dr. Martini as an outpatient DISPOSITION: . Home DISCHARGE INSTRUCTIONS: 1. As per discharge instructions. ITEMS TO FOLLOWUP ON ON OUTPATIENT: 1. Follow-up with Dr. Martini as outpatient. DISCHARGE CONDITION: Stable. TIME SPENT ON DISCHARGE: 35 minutes. Vital Signs/I&Os Vital Signs Date Time Temp Pulse Resp B/P (MAP) Pulse Ox O2 Delivery O2 Flow Rate FiO2 05/05/19 07:42 132/95 05/05/19 06:00 97.7 81 18 96 Room Air I&O- Last 24 Hours up to 6 AM 05/05/19 06:00 Intake Total 2890 ml Output Total 1075 ml Balance 1815 ml Laboratory Data Labs 24H Laboratory Tests 2 05/04/19 11:33: Bedside Glucose (Misc Panel) 190H 05/05/19 05:31: Anion Gap 9, Glomerular Filtration Rate 57.4, Calcium Level 8.6L, Total Bilirubin 0.4, Aspartate Amino Transf (AST/SGOT) 15, Alanine Aminotransferase (ALT/SGPT) 23, Alkaline Phosphatase 91, Total Protein 7.5, Albumin 3.3, Albumin/Globulin Ratio 0.79L 05/05/19 06:19: Immature Granulocyte % (Auto) 2.3, Neutrophils (%) (Auto) 69.8H, Lymphocytes (%) (Auto) 16.6L, Monocytes (%) (Auto) 7.7H, Eosinophils (%) (Auto) 2.5, Basophils (%) (Auto) 1.1H, Neutrophils # (Auto) 7.7, Lymphocytes # (Auto) 1.8, Monocytes # (Auto) 0.9H, Eosinophils # (Auto) 0.3, Basophils # (Auto) 0.1, Nucleated Red Blood Cells % (auto) 0.0 CBC/BMP Laboratory Tests 05/05/19 05:31 05/05/19 06:19 FSBS Laboratory Tests Test 05/04/19 11:33 Range/Units Bedside Glucose (Misc Panel) 190 80-115 MG/DL Microbiology Microbiology 05/03/19 Blood Culture - Preliminary, Resulted No growth after 24 hours . All specim... Discharge Medications Scheduled Atorvastatin Calcium (Atorvastatin Calcium) 20 Mg Tablet, 20 MG PO DAILY, (Reported) Budesonide/Formoterol (Symbicort 160-4.5 Mcg Inhaler) 60 Puff/Inhaler Aers, 2 PUFF INH BID, (Reported) Glimepiride (Glimepiride) 4 Mg Tablet, 4 MG PO QHS, (Reported) Levofloxacin (Levaquin) 500 Mg Tablet, 500 MG PO DAILY Levothyroxine Sodium (Synthroid) 25 Mcg Tab, 25 MCG PO DAILY, (Reported) Losartan Potassium (Losartan Potassium) 100 Mg Tablet, 100 MG PO DAILY, (Reported) Meloxicam (Meloxicam) 15 Mg Tab, 15 MG PO QHS, (Reported) Metformin HCl (Metformin HCl) 1,000 Mg Tablet, 1,000 MG PO BID, (Reported) Omeprazole (Omeprazole) 20 Mg Cap, 40 MG PO QHS, (Reported) Scheduled PRN Acetaminophen (Tylenol Extra Strength) 500 Mg Tablet, 1,000 MG PO Q6H PRN for PAIN, (Reported) Albuterol Sulfate (Proair Hfa) 108 Mcg/Act Aer, 2 PUFF INH Q4H PRN for SHORTNESS OF BREATH, (Reported) Hydrocodone/Acetaminophen (Hydrocodone-Acetamin 5-325 mg) 1 Each Tablet, 1 TAB PO Q4H PRN for PAIN Allergies Coded Allergies: No Known Allergies (Verified , 10/29/02) YORDAN ROQUE MD May 05, 2019 10:44
== END 2019-05-05 13:00 | disposition home or self-care (01) ==
LOC: M ED 12:10 → M ED INP 12:11 → ENRESERV 15:39 → M MSPAV 16:27
PROVIDERS: ADMIT Internal Medicine; ATTEND Internal Medicine
DX: N20.1 Calculus of ureter (principal); E11.9 Type 2 diabetes mellitus without complications; J44.9 Chronic obstructive pulmonary disease, unspecified; Q61.5 Medullary cystic kidney; E03.9 Hypothyroidism, unspecified; K21.9 Gastro-esophageal reflux disease without esophagitis; I10 Essential (primary) hypertension; E78.49 Other hyperlipidemia; Z79.84 Long term (current) use of oral hypoglycemic drugs; Z79.899 Other long term (current) drug therapy; Z87.891 Personal history of nicotine dependence
CPT/HCPCS: 36415; 74176; 80047; 80048; 80053; 80076; 81001; 82150; 83690; 85025; 85027; 85730; 87040; 94640; 96361; 96374; 96375; 96376; 99284; J1170; J1956; J2270; J2405; J2765

== ENCOUNTER → 2019-05-29 | Outpatient (CLI) | payer BC ==
[~2019-05-29] MED LIST changes: +ACET-897 PO; +LEVA1TAB2 PO; +METF-877 PO
--- NOTE | 2019-05-29 12:26 | REP ---
CT abdomen and pelvis without IV or oral contrast: Renal stone protocol. History: Ureteral calculus. Comparison CT study May 05, 2019. Findings: Preliminary digital furnace clerk radiograph is unremarkable. The lung bases are clear. There is fatty infiltration of the liver again noted. No focal liver lesion is seen. Spleen remains unremarkable. No adrenal lesion is seen. Gallbladder surgically absent. No pancreatic lesion is seen. There is a small peripheral cyst in the lower pole of the left kidney. There is a intrarenal calculus in the left kidney at mid pole level. This measures 5 mm in greatest diameter. There is no evidence of hydronephrosis on the left or the right. No intrarenal calculus is noted on the right. No ureteral calculus is seen. No bladder calculus is visible today. There is left colonic diverticulosis without CT evidence of diverticulitis. Impression: Intrarenal nephrolithiasis left kidney. No hydronephrosis on either side. No ureteral or bladder calculus seen today. Fatty infiltration of the liver and left colonic diverticulosis noted. Electronically Signed by Asaf Hutchison MD 05/29/2019 06:53 P
== END ==
LOC: M RAD 09:47
PROVIDERS: ATTEND Urology
DX: N20.0 Calculus of kidney (principal); K76.0 Fatty (change of) liver, not elsewhere classified; K57.90 Diverticulosis of intestine, part unspecified, without perforation or abscess without bleeding

== ENCOUNTER → 2019-05-29 | Outpatient (REF) | payer BC ==
[2019-05-29 19:47] LABS: APPEARANCE, URINE CLEAR (CLEAR); BACTERIA, URINE AUTO NEGATIVE (NEGATIVE); BILIRUBIN, URINE AUTO NEGATIVE (NEGATIVE); BLOOD, URINE BLOOD NEGATIVE (NEGATIVE); COLOR, URINE YELLOW (YELLOW); GLUCOSE, URINE (UA) AUTO NEGATIVE (NEGATIVE); KETONE, URINE AUTO NEGATIVE (NEGATIVE); LEUKOCYTE ESTERASE, URINE AUTO NEGATIVE (NEGATIVE); MUCUS, URINE SMALL (NEGATIVE); NITRITE, URINE AUTO NEGATIVE (NEGATIVE); PROTEIN, URINE AUTO NEGATIVE (NEGATIVE); RBC, URINE AUTO 0 /HPF (0-3); SPECIFIC GRAVITY URINE AUTO 1.021 (1.002-1.035); SQUAMOUS EPITHELIAL CELL UR AU 0 /HPF (0-6); UROBILINOGEN, URINE AUTO 0.2 mg/dL (0.0-2.0); WBC, URINE AUTO 1 /HPF (0-3)
== END ==
LOC: M SMT 16:44
PROVIDERS: ATTEND Urology
DX: N23 Unspecified renal colic (principal); R31.0 Gross hematuria

== ENCOUNTER → 2019-06-06 | Outpatient (CLI) | payer BC ==
[~2019-06-06] MED LIST changes: +ISOVUE-370 76% 100ML VIAL (Q9967) As Ordered ONE
--- NOTE | 2019-06-06 15:56 | REP ---
Clinical: Renal colic. Technique: Axial contrast enhanced and delayed images of the abdomen with coronal and sagittal re-formations using 100 ml Isovue 370 intravenous contrast material. Comparison: 05/29/2019. Findings: Kidneys demonstrate normal symmetric parenchymal enhancement and excretion to the collecting system without hydronephrosis or acute perinephric stranding. Incidental 1 cm left renal cyst again noted. Small nonobstructing left renal calculus is again identified and stable. Liver, spleen, pancreas, and bilateral adrenal glands are normal. Visualized portions of the enteric system are unremarkable. Abdominal aorta without aneurysm or dissection. Musculoskeletal structures are intact. Impression: 1. Stable 1 cm left renal cyst and small nonobstructing left renal calculus. No acute renal findings and no evidence for hydronephrosis. Electronically Signed by Morris Bourgeois MD 06/06/2019 03:48 P
== END ==
LOC: M RAD 14:53
PROVIDERS: ATTEND Urology
DX: N23 Unspecified renal colic (principal)
CPT/HCPCS: 74160; Q9967

== ENCOUNTER 2019-11-04 12:48 | Emergency (ER) | payer OTHER, BC ==
[~2019-11-04] VITALS: Ht 177.8 cm; Wt 117.3 kg
[~2019-11-04 12:48] MED LIST changes: -ISOVUE-370 76% 100ML VIAL (Q9967) As Ordered ONE
[2019-11-04] MEDS ORDERED: LORazepam 1 MG TAB PO STA (13:46)
[2019-11-04 13:49] LABS: BASO # 0.2 10^3/uL (0.0-0.2); BASO % 1.1 % (0.0-1.0); EOS # 0.3 10^3/uL (0.0-0.5); EOS % 1.5 % (0.0-3.0); HEMOGLOBIN 15.1 g/dl (13.5-17.5); LYMPH % 12.1 % (24.0-44.0); MEAN CORPUSCULAR HEMOGLOBIN 26.3 pg (27.0-33.0); MEAN CORPUSCULAR HGB CONC 31.5 g/dl (32.0-36.5); MEAN CORPUSCULAR VOLUME 83.6 fl (80.0-96.0); MONO % 6.1 % (0.0-5.0); NEUTROPHILS # 12.7 10^3/uL (1.5-8.5); NEUTROPHILS % 75.9 % (36.0-66.0); PLATELET COUNT, AUTOMATED 207 10^3/uL (150-450); RED BLOOD COUNT 5.74 10^6/uL (4.30-6.10); WHITE BLOOD COUNT 16.8 10^3/uL (4.0-10.0)
[2019-11-04 14:35] LABS: ACETAMINOPHEN LEVEL < 2.0 UG/ML (10.0-30.0); ALBUMIN 3.3 GM/DL (3.2-5.2); ALT/SGPT 30 U/L (12-78); BILIRUBIN,DIRECT < 0.1 MG/DL (0.0-0.2); BILIRUBIN,TOTAL 0.3 MG/DL (0.2-1.0); BLOOD UREA NITROGEN 22 MG/DL (7-18); CALCIUM LEVEL 8.4 MG/DL (8.8-10.2); CARBON DIOXIDE LEVEL 26 MEQ/L (21-32); CHLORIDE LEVEL 105 MEQ/L (98-107); CPK CREATINE PHOSPHOKINASE 140 U/L (39-308); CREATININE FOR GFR 1.08 MG/DL (0.70-1.30); ETHYL ALCOHOL (ETHANOL) < 0.003 % (0.000-0.010); GLOMERULAR FILTRATION RATE > 60.0 (>49); GLUCOSE, FASTING 200 MG/DL (70-100); MB/CK RELATIVE INDEX 1.43 (< OR =4); POTASSIUM SERUM 4.7 MEQ/L (3.5-5.1); SALICYLATE LEVEL < 1.7 MG/DL (5.0-30.0); SODIUM LEVEL 138 MEQ/L (136-145); TOTAL PROTEIN 7.3 GM/DL (6.4-8.2); TROPONIN I < 0.02 NG/ML (< 0.10)
[2019-11-04 14:46] LABS: AMPHETAMINES LEVEL URINE NEGATIVE (NEGATIVE); BARBITURATES URINE NEGATIVE (NEGATIVE); BENZODIAZEPINES URINE NEGATIVE (NEGATIVE); CANNABINOIDS URINE NEGATIVE (NEGATIVE); COCAINE METABOLITE URINE NEGATIVE (NEGATIVE); METHADONE URINE NEGATIVE (NEGATIVE); OPIATES URINE POSITIVE (NEGATIVE); PHENCYCLIDINE URINE NEGATIVE (NEGATIVE)
[2019-11-04 15:29] VITALS: BP 150/78
--- NOTE | 2019-11-04 19:19 | ECGEPIP ---
[facility] - ED Test Date: 2019-11-04 Pat Name: DERIK FITZGERALD Department: Room: - Gender: Male Imcu Nurse: anastacia : 1955 Requested By: Sean Andres Order Number: [id number] Reading MD: Sean Andres Measurements Intervals [place] Rate: 80 P: 65 VA: 145 QRS: -52 QRSD: 105 T: 32 QT: 361 QTc: 418 Interpretive Statements SINUS RHYTHM WITH MARKED SINUS ARRHYTHMIA LEFT ANTERIOR FASCICULAR BLOCK Left axis deviation NONSPECIFIC ST T WAVE CHANGES DELAYED R WAVE PROGRESSION CW 04/12/[address] T WAVE CHANGES Electronically Signed on 11-04-2019 19:19:20 EDT by Sean Andres
--- NOTE | 2019-11-05 01:04 | REP ---
AP PORTABLE CHEST, 11/04/2019. COMPARISON: 06/12/2011 CLINICAL HISTORY: Altered mental status. FINDINGS: Lungs are mildly hyperinflated. CP angles sharply defined. There is no infiltrate, effusion, atelectasis, or mass. Heart, mediastinum, and hilar contours are normal. The aorta and airway unremarkable. The pulmonary arteries are mildly prominent; that might reflect some pulmonary artery hypertension, presumably on the basis of COPD. Visualized bones unremarkable. IMPRESSION: 1. Some mild hyperinflation that may reflect some COPD. 2. No cardiomegaly, edema, effusion, or acute infiltrate. Electronically Signed by Haseeb Perea MD 11/05/2019 08:39 A
--- NOTE | 2019-11-05 01:11 | REP ---
CT BRAIN WITHOUT CONTRAST: 11/04/2019. CLINICAL HISTORY: Altered mental status. COMPARISON: 11/10/2012 TECHNIQUE: Axial soft tissue and bone windows with coronal reconstructions provided. FINDINGS: Lateral ventricles are midline, symmetric but larger than the previous study, and in proportion to the progressive diffuse cerebral atrophy progressed over the past 7 years. Third and fourth ventricles were unremarkable. The basal ganglia are symmetric and normal. The white matter tracts show heterogeneous low attenuation bilaterally, suggesting chronic small vessel white matter ischemic disease. Atrophy greatest in the temporal and frontal lobes but present throughout. There is no intracranial hemorrhage, mass, mass effect, or vascular territory infarct evident. Brainstem was intact. Cerebellum shows some atrophy. Basal cisterns intact. Mastoids, sinuses, skull base, and calvarium are without fracture or focal lesion. IMPRESSION: 1. Ventriculomegaly and atrophy in proportion with progression since the 2013 CT scan. 2. Chronic small vessel ischemic changes of aging. 3. No acute infarct, hemorrhage, mass, mass effect, or edema. 4. Skull base, calvarium, sinuses, and mastoids grossly intact. Electronically Signed by Haseeb Perea MD 11/05/2019 08:40 A
== END 2019-11-04 15:37 | disposition home or self-care (01) ==
LOC: M ED 12:48
DX: G25.1 Drug-induced tremor (principal); R53.1 Weakness; I44.4 Left anterior fascicular block; E11.9 Type 2 diabetes mellitus without complications; I10 Essential (primary) hypertension; J44.9 Chronic obstructive pulmonary disease, unspecified; Z87.891 Personal history of nicotine dependence; Z79.84 Long term (current) use of oral hypoglycemic drugs; Z79.899 Other long term (current) drug therapy
CPT/HCPCS: 70450; 71045; 80048; 80076; 80307; 82140; 82550; 82553; 84439; 84443; 84484; 85025; 93005; 93041; 94760; 99285; G0480

== ENCOUNTER 2020-03-10 11:03 | Emergency (ER) | payer OTHER, BC ==
[~2020-03-10] VITALS: Ht 177.8 cm; Wt 117.9 kg
--- NOTE | 2020-03-10 11:39 | REP ---
INDICATION: sob, hx of pneumothorax COMPARISON: 11/04/2019. TECHNIQUE: PA/Lateral FINDINGS: Lungs: There is consolidative infiltrate in the lingula. Heart: Normal in size. Mediastinum: Mediastinal silhouette unremarkable. Pleural angles: Unremarkable.. Bones and soft tissues: Unremarkable. IMPRESSION: Consolidative infiltrate in the lingula. <Electronically signed by Perez Taylor > 03/10/20 [id number]
[2020-03-10] MEDS ORDERED: NS 1,000 ML IV SCH (12:21)
[2020-03-10] MEDS ORDERED: cefTRIAXone SOD 1 GM in D5W MINI-BAG PLUS 50 ML IV ONE (12:30)
[2020-03-10] MEDS ORDERED: AZITHROMYCIN INJ 500 MG, VIAL MATE ADAPTER 1 EACH in D5W 250 ML IV ONE (12:30)
[2020-03-10] MEDS ORDERED: IPRATROPIUM 0.5MG/ALBUTEROL 2.5MG INH SOL UD 3ML (DUONEB) NEB PRN (12:30)
[2020-03-10 13:18] LABS: BASO # 0.2 10^3/uL (0.0-0.2); BASO % 1.2 % (0.0-1.0); EOS # 0.3 10^3/uL (0.0-0.5); EOS % 1.6 % (0.0-3.0); HEMATOCRIT 42.6 % (42.0-52.0); HEMOGLOBIN 13.2 g/dl (13.5-17.5); LYMPH # 1.8 10^3/uL (1.5-5.0); LYMPH % 10.2 % (24.0-44.0); MEAN CORPUSCULAR HEMOGLOBIN 25.7 pg (27.0-33.0); MEAN CORPUSCULAR VOLUME 82.9 fl (80.0-96.0); MONO # 1.1 10^3/uL (0.0-0.8); MONO % 6.4 % (0.0-5.0); NEUTROPHILS # 13.7 10^3/uL (1.5-8.5); NEUTROPHILS % 76.5 % (36.0-66.0); PLATELET COUNT, AUTOMATED 281 10^3/uL (150-450); RED BLOOD COUNT 5.14 10^6/uL (4.30-6.10); WHITE BLOOD COUNT 17.9 10^3/uL (4.0-10.0)
[2020-03-10 13:52] LABS: ALBUMIN 3.1 GM/DL (3.2-5.2); ALT/SGPT 20 U/L (12-78); BILIRUBIN,DIRECT 0.1 MG/DL (0.0-0.2); BILIRUBIN,TOTAL 0.4 MG/DL (0.2-1.0); BLOOD UREA NITROGEN 16 MG/DL (7-18); CARBON DIOXIDE LEVEL 24 MEQ/L (21-32); CHLORIDE LEVEL 104 MEQ/L (98-107); CK-MB VALUE MASS 1.6 NG/ML (<3.6); CPK CREATINE PHOSPHOKINASE 94 U/L (39-308); CREATININE FOR GFR 1.22 MG/DL (0.70-1.30); GLOMERULAR FILTRATION RATE > 60.0 (>49); GLUCOSE, FASTING 235 MG/DL (70-100); NT-PRO BNP 38 PG/ML (<125); POTASSIUM SERUM 4.6 MEQ/L (3.5-5.1); SODIUM LEVEL 136 MEQ/L (136-145); TOTAL PROTEIN 7.6 GM/DL (6.4-8.2); TROPONIN I < 0.02 NG/ML (< 0.10)
[2020-03-10 14:34] VITALS: O2SAT 94
[2020-03-10] MEDS ORDERED: ZITHTAB PO (15:23)
[2020-03-10] MEDS ORDERED: AUGM875T28 PO (15:23)
[2020-03-10] MEDS ORDERED: ULTR50TA8 PO (15:24)
[2020-03-10 15:31] VITALS: BP 140/82
--- NOTE | 2020-03-10 23:57 | ECGEPIP ---
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
== END 2020-03-10 15:43 | disposition home or self-care (01) ==
LOC: M ED 11:03
DX: J18.1 Lobar pneumonia, unspecified organism (principal); J44.9 Chronic obstructive pulmonary disease, unspecified; E11.9 Type 2 diabetes mellitus without complications; E78.5 Hyperlipidemia, unspecified; Z79.51 Long term (current) use of inhaled steroids; Z79.899 Other long term (current) drug therapy; Z79.84 Long term (current) use of oral hypoglycemic drugs

== ENCOUNTER 2020-03-13 10:37 | Inpatient (IN) | payer OTHER, BC ==
[~2020-03-13] VITALS: Ht 177.8 cm; Wt 118.5 kg
[~2020-03-13 10:37] MED LIST changes: +AUGM875T28 PO; +ULTR50TA8 PO; +ZITHTAB PO
[2020-03-13] MEDS ORDERED: PERCOCET 5MG/325MG TAB PO ONE (12:30)
[2020-03-13] MEDS ORDERED: NS 1,000 ML IV ONE (12:30)
[2020-03-13 12:51] LABS: BASO # 0.2 10^3/uL (0.0-0.2); BASO % 1.3 % (0.0-1.0); EOS # 0.3 10^3/uL (0.0-0.5); EOS % 1.6 % (0.0-3.0); HEMATOCRIT 45.3 % (42.0-52.0); HEMOGLOBIN 14.3 g/dl (13.5-17.5); LYMPH # 2.2 10^3/uL (1.5-5.0); LYMPH % 11.5 % (24.0-44.0); MEAN CORPUSCULAR HEMOGLOBIN 25.8 pg (27.0-33.0); MEAN CORPUSCULAR HGB CONC 31.6 g/dl (32.0-36.5); MEAN CORPUSCULAR VOLUME 81.8 fl (80.0-96.0); MONO # 1.1 10^3/uL (0.0-0.8); NEUTROPHILS # 14.2 10^3/uL (1.5-8.5); NEUTROPHILS % 75.3 % (36.0-66.0); PLATELET COUNT, AUTOMATED 273 10^3/uL (150-450); RED BLOOD COUNT 5.54 10^6/uL (4.30-6.10); WHITE BLOOD COUNT 18.9 10^3/uL (4.0-10.0)
[2020-03-13 13:23] LABS: ALBUMIN 3.3 GM/DL (3.2-5.2); ALT/SGPT 22 U/L (12-78); BILIRUBIN,DIRECT 0.1 MG/DL (0.0-0.2); BILIRUBIN,TOTAL 0.4 MG/DL (0.2-1.0); BLOOD UREA NITROGEN 20 MG/DL (7-18); CALCIUM LEVEL 9.4 MG/DL (8.8-10.2); CARBON DIOXIDE LEVEL 28 MEQ/L (21-32); CHLORIDE LEVEL 101 MEQ/L (98-107); CK-MB VALUE MASS 1.1 NG/ML (<3.6); CPK CREATINE PHOSPHOKINASE 75 U/L (39-308); CREATININE FOR GFR 1.13 MG/DL (0.70-1.30); GLOMERULAR FILTRATION RATE > 60.0 (>49); GLUCOSE, FASTING 175 MG/DL (70-100); MB/CK RELATIVE INDEX 1.47 (< OR =4); NT-PRO BNP 45 PG/ML (<125); POTASSIUM SERUM 4.5 MEQ/L (3.5-5.1); SODIUM LEVEL 135 MEQ/L (136-145); TOTAL PROTEIN 8.3 GM/DL (6.4-8.2); TROPONIN I < 0.02 NG/ML (< 0.10)
[2020-03-13] MEDS ORDERED: ISOVUE-370 76% 100ML VIAL As Ordered ONE (13:28)
--- NOTE | 2020-03-13 13:54 | REP ---
INDICATION: left chest pain/sob. COMPARISON: None TECHNIQUE: CT angiography. 100 cc Isovue 370. FINDINGS: There is excellent visualization of the pulmonary arterial vasculature. There are no focal filling defects present that would be considered consistent with acute pulmonary emboli. There is left hilar adenopathy and a small left pleural effusion. The imaged upper abdomen and imaged osseous structures are within normal limits. Evaluation of the lung lindsey shows a 5.7 by 4.9 by 2.4 cm sized left hilar mass density in the left upper lobe and lingula. Air bronchograms are seen within this. In the left lower lobe partially obscured by the left pleural effusion there is an additional asymmetric density. Emphysematous and fibrotic changes are also seen throughout the lung lindsey. IMPRESSION: 1. There is no evidence of a pulmonary embolus. 2. Abnormal left lung densities as described above. Pneumonia/atelectasis/neoplasm. 3. Small left pleural effusion 4. Left hilar adenopathy. <Electronically signed by Steve Iglesias > 03/13/20 [id number]
[2020-03-13] MEDS ORDERED: ALBUTEROL 90 MCG/ACT 8GM HFA INHALER INH ONE (14:15)
[2020-03-13] MEDS ORDERED: cefTRIAXone SOD 2 GM in D5W MINI-BAG PLUS 50 ML IV ONE (14:30)
[2020-03-13] MEDS ORDERED: DOXYCYCLINE HYCLATE 100 MG in D5W MINI-BAG PLUS 100 ML IV ONE (14:30)
[2020-03-13] MEDS ORDERED: ACETAMINOPHEN TAB 650MG DOSE (2X325MG) PO PRN (14:30)
[2020-03-13] MEDS ORDERED: LEVALBUTEROL 1.25 MG/0.5 ML CONCENTRATE NEB INH PRN (15:00)
[2020-03-13] MEDS ORDERED: AZIT-12 PO (15:03)
[2020-03-13] MEDS ORDERED: AUGM875T28 PO (15:03)
[2020-03-13] MEDS ORDERED: VITA50005 PO (15:03)
--- NOTE | 2020-03-13 15:05 | HPEPDOC ---
[facility] Medical History & Physical Date of Admission Mar 13, 2020 Date of Service: Mar 13, 2020 History and Physical CHIEF COMPLAINT: cough sob since Tuesday HISTORY OF PRESENT ILLNESS: 64 y/o male with >80 pack year h/o cigarette abuse quit 6years ago, copd, HTN dyslipidemia, medullary sponge kidney c/o six day history of left-sided pleuritic chest pain described as stabbing, worse when he lays down on his left side and walks around, has progressed to the point where he is unable to sleep all night long, despite taking Tylenol every 4-6 hours at home. He also complains of productive cough, yellow in color green at times without any vomiting but occasional nausea. He denies any fevers, chills, hemoptysis or sob and has not had any prior episodes. His primary care physician gave him antibiotics, which he has taken since Tuesday with no improvement as well as some bronchodilators. He denies any dizziness, lightheadedness, paroxysmal nocturnal dyspnea, dyspnea on exertion, palpitations. In the ER, he was a febrile. CT chest shows a large left hilar mass in the left upper lobe and lingula measuring 5.7 x 4.9 x 2.4 cm reviewed, small pleural effusion, admitted for left upper lobe pneumonia. PAST MEDICAL HISTORY: >80 pack year h/o cigarette abuse quit 6years ago, copd, HTN dyslipidemia, medullary sponge kidney Metabolic syndrome, obesity, BMI 37.4 PAST SURGICAL HISTORY Cholecystectomy Right shoulder arthroscopy for rotator cuff injury HOME MEDICATIONS:SEE BELOW ALLERGIES: SEE BELOW FAMILY HISTORY Unknown SOCIAL HISTORY quit smoking about 6 years ago that was a smoker of 40 years at 2-3 PPD, NO ETOH or drug use works part-time at [employer] REVIEW OF SYSTEMS Other systems 10 point review of systems complete, all negative otherwise stated in HPI PHYSICAL EXAMINATION VITALS SEE BELOW GEN obese Speaking in full sentences, AAOx3 HEENT: NC, AT, PERRLA, EOMI no pallor CVS: RRR, +S1S2 tachycardic Lungs: Fair air entry bilaterally, increased egophony and left upper lobe crackles. Diminished breath sounds, faint wheezing. Coarse rhonchi Abdomen: Soft, Non-distended,, nontender + bs x 4quadrants Extremities: No lower extremity edema, No calf tenderness LABORATORY DATA: SEE BELOW MICROBIOLOGY: SEE BELOW IMAGING STUDIES: INDICATION: left chest pain/sob. COMPARISON: None TECHNIQUE: CT angiography. 100 cc Isovue 370. FINDINGS: There is excellent visualization of the pulmonary arterial vasculature. There are no focal filling defects present that would be considered consistent with acute pulmonary emboli. There is left hilar adenopathy and a small left pleural effusion. The imaged upper abdomen and imaged osseous structures are within normal limits. Evaluation of the lung lindsey shows a 5.7 by 4.9 by 2.4 cm sized left hilar mass density in the left upper lobe and lingula. Air bronchograms are seen within this. In the left lower lobe partially obscured by the left pleural effusion there is an additional asymmetric density. Emphysematous and fibrotic changes are also seen throughout the lung lindsey. IMPRESSION: 1. There is no evidence of a pulmonary embolus. 2. Abnormal left lung densities as described above. Pneumonia/atelectasis/neoplasm. 3. Small left pleural effusion 4. Left hilar adenopathy. <Electronically signed by Steve Iglesias > 03/13/20 1350 ASSESSMENT: 64 y/o male with >80 pack year h/o cigarette abuse quit 6years ago, copd, HTN dyslipidemia, medullary sponge kidney c/o six day history of left-sided pleuritic chest pain described as stabbing, worse when he lays down on his left side and walks around, has progressed to the point where he is unable to sleep all night long, despite taking Tylenol every 4-6 hours at home. He also complains of productive cough, yellow in color green at times without any vomiting but occasional nausea. He denies any fevers, chills, hemoptysis or sob and has not had any prior episodes. His primary care physician gave him antibiotics, which he has taken since Tuesday with no improvement as well as some bronchodilators. He denies any dizziness, lightheadedness, paroxysmal nocturnal dyspnea, dyspnea on exertion, palpitations. In the ER, he was afebrile. CT chest shows a large left hilar mass in the left upper lobe and lingula measuring 5.7 x 4.9 x 2.4 cm reviewed, small pleural effusion, admitted for left upper lobe pneumonia. Community acquired Left upper lobe pneumonia -consolidation measuring 5.7 by 4.9 by 2.4 cm sized left hilar mass LUNA. CT chest reviewed by Dr. Ojeda choirmaster clinical documentation consultant, believe patient may have a large pneumonia can be treated with antibiotics with repeat CT chest in 3-4 weeks to rule out malignancy, especially due to history of [id number] history of smoking, quit 6 years ago. Nebulizer with Xopenex. Supplemental oxygen if needed to keep saturations above 88%. -Continue with IV ceftriaxone and doxycycline. Obtain sputum culture and sensitivity, blood cultures, urine Legionella and urine streptococcal antigen. left pleural effusion -Secondary to possible parapneumonic effusion .check a 2-D echo, rule out CHF , most likely right-sided due to obesity and probable sleep apnea. Monitor I's and O's, daily weights, could also be malignant pleural effusion. In light of the large mass that will need to monitor for the next 3-[address] chest as outpatient, possible biopsy if no resolution of the left hilar mass. COPD, Emphysema, and fibrosis, decompensated -Slight wheezing on examination. pt has an [id number]-year history of smoking. -Solu-Medrol, supplemental oxygen, nebulizer treatment. Continue with antibiotics HTN -Controlled. May resume home medications DM -Check A1c, sliding scale, fingersticks. Dyslipidemia -Check lipid panel. Resume home medications and adjust as needed depending on results of the lipid panel. Obesity BMI 37.4 -Check TSH, lipid panel and A1c Medullary Sponge Kidney -Chronic DIET: consistent carbohydrate diet CODE STATUS DNR/DNI. MOLST form signed . DVT prophylaxis: Lovenox Vital Signs Vital Signs Date Time Temp Pulse Resp B/P (MAP) Pulse Ox O2 Delivery O2 Flow Rate FiO2 03/13/20 12:47 16 03/13/20 12:16 03/13/20 10:37 97.9 105 95 Room Air Laboratory Data Labs 24H Laboratory Tests 2 03/13/20 12:40: Immature Granulocyte % (Auto) 4.3H, Neutrophils (%) (Auto) 75.3H, Lymphocytes (%) (Auto) 11.5L, Monocytes (%) (Auto) 6.0H, Eosinophils (%) (Auto) 1.6, Basophils (%) (Auto) 1.3H, Neutrophils # (Auto) 14.2H, Lymphocytes # (Auto) 2.2, Monocytes # (Auto) 1.1H, Eosinophils # (Auto) 0.3, Basophils # (Auto) 0.2, Nucleated Red Blood Cells % (auto) 0.0, Anion Gap 6L, Glomerular Filtration Rate > 60.0, Lactic Acid Level 2.0, Calcium Level 9.4, Total Bilirubin 0.4, Direct Bilirubin 0.1, Aspartate Amino Transf (AST/SGOT) 12, Alanine Aminotransferase (ALT/SGPT) 22, Alkaline Phosphatase 114, Total Creatine Kinase 75, Creatine Kinase MB 1.1, Creatine Kinase MB Relative Index 1.47, Troponin I < 0.02, SK-Rhj-[id number]-Type Natriuretic Peptide 45, Total Protein 8.3H, Albumin 3.3, Albumin/Globulin Ratio 0.7 CBC/BMP Laboratory Tests 03/13/20 12:40 Home Medications Scheduled Amoxicillin/Potassium Clav (Augmentin 875-125 Tablet) 1 Each Tablet, 1 TAB PO BID Atorvastatin Calcium (Atorvastatin Calcium) 20 Mg Tablet, 20 MG PO DAILY Azithromycin (Zithromax) 250 Mg Tablet, 250 MG PO DAILY Budesonide/Formoterol (Symbicort 160-4.5 Mcg Inhaler) 60 Puff/Inhaler Aers, 2 PUFF INH BID Glimepiride (Glimepiride) 4 Mg Tablet, 4 MG PO QHS Levothyroxine Sodium (Synthroid) 25 Mcg Tab, 25 MCG PO DAILY Losartan Potassium (Losartan Potassium) 100 Mg Tablet, 100 MG PO DAILY Metformin HCl (Metformin HCl) 1,000 Mg Tablet, 1,000 MG PO BID Omeprazole (Omeprazole) 20 Mg Cap, 40 MG PO QHS Scheduled PRN Acetaminophen (Tylenol Extra Strength) 500 Mg Tablet, 1,000 MG PO Q6H PRN for PAIN Albuterol Sulfate (Proair Hfa) 108 Mcg/Act Aer, 2 PUFF INH Q4H PRN for SHORTNESS OF BREATH Tramadol HCl (Ultram) 50 Mg Tablet, 0.5 TAB PO BIDP PRN for pain Allergies Coded Allergies: No Known Allergies (Verified , 10/29/02) A-FIB/CHADSVASC A-FIB History Current/History of A-Fib/PAF?: No Current PO Anticoag Therapy: No Age/Risk Factor Scoring CHADSVASC: CHADSVASC Response (Comments) Value Age Risk Factor Age 65-74 years old 1 Gender Risk Factor Male 0 Hx of CHF No 0 Hx of HTN Yes 1 Hx of Stroke/TIA/or VTE No 0 Hx of Diabetes Yes 1 Hx of Vascular Disease No 0 Total 3 Treatment Treatment ordered: NONE MARIA T ARITA MD Mar 13, 2020 14:27
[2020-03-13] MEDS ORDERED: guaiFENesin DM LIQ 10ML UD PO PRN (15:15)
[2020-03-13] MEDS: LEVALBUTEROL 1.25 MG/0.5 ML CONCENTRATE NEB INH SCH ×3 (15:32→23:27)
[2020-03-13] MEDS: TIOTROPIUM INHALER/CAPSULE (SPIRIVA) INH SCH (15:33)
[2020-03-13 17:24] VITALS: BP 172/79
[2020-03-13] MEDS: methylPREDNISolone 125MG 2ML VIAL IV SCH (17:48)
[2020-03-13] MEDS ORDERED: NALOXONE INJ 0.4MG/1ML VIAL (J2310 PER 1MG) IV PRN (18:30)
[2020-03-13] MEDS ORDERED: KETOROLAC 30 MG/ML 1ML VIAL IV ONE (18:30)
[2020-03-13] MEDS ORDERED: HYDROMORPHONE HCL 0.5 MG/ 0.5 ML SYRINGE (J1170 PER 1) IV ONE (18:30)
[2020-03-13] MEDS: SYMBICORT 160/4.5MCG INHALER 6GM INH PRN (19:46)
[2020-03-13] MEDS: OMEPRAZOLE 20 MG CAP PO SCH (20:46)
[2020-03-13] MEDS: LEVOTHYROXINE 25MCG TABLET (0.025MG) PO SCH (20:46)
[2020-03-13 22:00] VITALS: BP 141/67
[2020-03-14] MEDS ORDERED: PERCOCET 5MG/325MG TAB PO PRN
[2020-03-14] MEDS: LEVALBUTEROL 1.25 MG/0.5 ML CONCENTRATE NEB INH SCH ×6 (03:36→23:23)
[2020-03-14] MEDS: methylPREDNISolone 125MG 2ML VIAL IV SCH (04:06)
[2020-03-14] MEDS: DOXYCYCLINE HYCLATE 100 MG in D5W MINI-BAG PLUS 100 ML IV SCH ×2 (04:07→16:49)
[2020-03-14 06:00] VITALS: BP 149/95
[2020-03-14 06:30] LABS: BASO # 0.2 10^3/uL (0.0-0.2); BASO % 0.6 % (0.0-1.0); HEMATOCRIT 44.4 % (42.0-52.0); HEMOGLOBIN 13.8 g/dl (13.5-17.5); LYMPH # 0.9 10^3/uL (1.5-5.0); LYMPH % 3.5 % (24.0-44.0); MEAN CORPUSCULAR HEMOGLOBIN 25.7 pg (27.0-33.0); MEAN CORPUSCULAR HGB CONC 31.1 g/dl (32.0-36.5); MEAN CORPUSCULAR VOLUME 82.7 fl (80.0-96.0); MONO # 0.6 10^3/uL (0.0-0.8); MONO % 2.2 % (0.0-5.0); NEUTROPHILS # 23.7 10^3/uL (1.5-8.5); NEUTROPHILS % 90.2 % (36.0-66.0); PLATELET COUNT, AUTOMATED 270 10^3/uL (150-450); RED BLOOD COUNT 5.37 10^6/uL (4.30-6.10); WHITE BLOOD COUNT 26.3 10^3/uL (4.0-10.0)
[2020-03-14 06:49] LABS: HEMOGLOBIN A1c 7.8 %
[2020-03-14 07:12] LABS: CALCIUM LEVEL 9.2 MG/DL (8.8-10.2); CHOLESTEROL RISK RATIO 3.575 (<5); CREATININE FOR GFR 1.34 MG/DL (0.70-1.30); GLOMERULAR FILTRATION RATE 56.8 (>49); POTASSIUM SERUM 4.5 MEQ/L (3.5-5.1); THYROID STIMULATING HORMONE 0.806 uIU/ML (0.358-3.740)
[2020-03-14] MEDS: SYMBICORT 160/4.5MCG INHALER 6GM INH PRN ×2 (07:29→19:42)
[2020-03-14] MEDS: TIOTROPIUM INHALER/CAPSULE (SPIRIVA) INH SCH (07:29)
[2020-03-14] MEDS: ENOXAPARIN 40MG/0.4ML SYRINGE (J1650 PER 10MG) SC SCH (08:04)
[2020-03-14] MEDS: ATORVASTATIN 20 MG TAB PO SCH (08:04)
[2020-03-14] MEDS ORDERED: NS 1,000 ML IV ONE (09:00)
[2020-03-14] MEDS ORDERED: atenoloL 50 MG TAB PO ONE (09:00)
[2020-03-14] MEDS ORDERED: HYDROMORPHONE HCL 0.5 MG/ 0.5 ML SYRINGE (J1170 PER 1) IV ONE (09:00)
[2020-03-14] MEDS ORDERED: LOSARTAN 50MG TABLET PO SCH (09:00)
[2020-03-14] MEDS: predniSONE 20 MG TAB PO SCH ×2 (09:56→21:17)
--- NOTE | 2020-03-14 10:51 | IPNPDOC ---
Date Seen The patient was seen on 03/14/20. Progress Note SUBJECTIVE: Patient seen and examined at bedside chart has been reviewed. Yesterday he had difficult time a pleuritic chest pain, especially in the left upper lobe. . He slept better. He has no shortness of breath today. No fever, chills overnight. Denies any productive cough. No nausea or vomiting. No palpitations or lightheadedness . . He denies any PND or orthopnea. . He admits to being noncompliant with his CPAP and had been on continuous pulse oximeter. OBJECTIVE: PHYSICAL EXAMINATION VITALS SEE BELOW GEN obese Speaking in full sentences, AAOx3. No respiratory distress or use of respiratory accessory muscles HEENT: NC, AT, PERRLA, EOMI no pallor. No jugular venous distention. Sick neck no stridor CVS: RRR, +S1S2, no murmurs noted Lungs: Fair air entry bilaterally, increased egophony and left upper lobe crackles. Diminished breath sounds. No wheezing or rhonchi Abdomen: Soft, Non-distended,, nontender + bs x 4quadrants Extremities: No lower extremity edema, No calf tenderness LABORATORY DATA: SEE BELOW MICROBIOLOGY: SEE BELOW IMAGING STUDIES: INDICATION: left chest pain/sob. COMPARISON: None TECHNIQUE: CT angiography. 100 cc Isovue 370. FINDINGS: There is excellent visualization of the pulmonary arterial vasculature. There are no focal filling defects present that would be considered consistent with acute pulmonary emboli. There is left hilar adenopathy and a small left pleural effusion. The imaged upper abdomen and imaged osseous structures are within normal limits. Evaluation of the lung lindsey shows a 5.7 by 4.9 by 2.4 cm sized left hilar mass density in the left upper lobe and lingula. Air bronchograms are seen within this. In the left lower lobe partially obscured by the left pleural effusion there is an additional asymmetric density. Emphysematous and fibrotic changes are also seen throughout the lung lindsey. IMPRESSION: 1. There is no evidence of a pulmonary embolus. 2. Abnormal left lung densities as described above. Pneumonia/atelectasi s/neoplasm. 3. Small left pleural effusion 4. Left hilar adenopathy. <Electronically signed by Steve Iglesias > 03/13/20 1350 ASSESSMENT: 64 y/o male with >80 pack year h/o cigarette abuse quit 6years ago, copd, HTN dyslipidemia, medullary sponge kidney c/o six day history of left-sided pleuritic chest pain described as stabbing, worse when he lays down on his left side and walks around, has progressed to the point where he is unable to sleep all night long, despite taking Tylenol every 4-6 hours at home. He also complains of productive cough, yellow in color green at times without any vomiti ng but occasional nausea. He denies any fevers, chills, hemoptysis or sob and has not had any prior episodes. His primary care physician gave him antibiotics, which he has taken since Tuesday with no improvement as well as some bronchodilators. He denies any dizziness, lightheadedness, paroxysmal nocturnal dyspnea, dyspnea on exertion, palpitations. In the ER, he was afebrile. CT chest shows a large left hilar mass in the left upper lobe and lingula measuring 5.7 x 4.9 x 2.4 cm reviewed, small pleural effusion, admitted for left upper lobe pneumonia. Community acquired Left upper lobe pneumonia Patient is currently afebrile, despite increase in white count, which is thought to be secondary to steroids. Patient clinically appears well. He has no conversational dyspnea and denies any more pleuritic chest pain since waking up this morning. . He will be continued on present IV antibiotics, ceftriaxone and doxycycline. We'll still awaiting sputum and blood cultures to be finalized left pleural effusion -Awaiting 2-D echo result. Patient is not hypoxic COPD, Emphysema, and fibrosis, decompensated -On nebulizer treatment, Solu-Medrol and IV antibiotics HTN -Controlled. Resumed on home medications DM -Consistent carb diet, sliding scale, fingersticks reviewed. Dyslipidemia -Reviewed. Lipid profile Obesity BMI 37.4 -Chronic would benefit from weight loss program Medullary Sponge Kidney -Chronic DIET: consistent carbohydrate diet CODE STATUS DNR/DNI. MOLST form signed . DVT prophylaxis: Lovenox Disposition 1-2 more days of IV antibiotics and discharged home. Patient several repeat CT chest in 3 weeks' time to check for resolution of the large left upper lobe mass, if there is no resolution. Patient will benefit for CT-guided biopsy or bronchoscopy to rule out malignancy in light of significant history of tobacco abuse. VS, I&O, 24H, Fishbone Vital Signs/I&O Vital Signs Date Time Temp Pulse Resp B/P (MAP) Pulse Ox O2 Delivery O2 Flow Rate FiO2 03/14/20 09:56 108 167/79 03/14/20 06:00 97.0 20 96 Nasal Cannula 2.0 I&O- Last 24 Hours up to 6 AM 03/14/20 06:00 Intake Total 2300 ml Output Total 0 ml Balance 2300 ml Laboratory Data 24H LABS Laboratory Tests 2 03/13/20 12:40: Immature Granulocyte % (Auto) 4.3H, Neutrophils (%) (Auto) 75.3H, Lymphocytes (%) (Auto) 11.5L, Monocytes (%) (Auto) 6.0H, Eosinophils (%) (Auto) 1.6, Basophils (%) (Auto) 1.3H, Neutrophils # (Auto) 14.2H, Lymphocytes # (Auto) 2.2, Monocytes # (Auto) 1.1H, Eosinophils # (Auto) 0.3, Basophils # (Auto) 0.2, Nucle ated Red Blood Cells % (auto) 0.0, Anion Gap 6L, Glomerular Filtration Rate > 60.0, Lactic Acid Level 2.0, Calcium Level 9.4, Total Bilirubin 0.4, Direct Bilirubin 0.1, Aspartate Amino Transf (AST/SGOT) 12, Alanine Aminotransferase (ALT/SGPT) 22, Alkaline Phosphatase 114, Total Creatine Kinase 75, Creatine Kinase MB 1.1, Creatine Kinase MB Relative Index 1.47, Troponin I < 0.02, SO-Fah-A-Type Natriuretic Peptide 45, Total Protein 8.3H, Albumin 3.3, Albumin/Globulin Ratio 0.7 03/13/20 22:49: Coronavirus (COVID-19)(PCR) NEGATIVE 03/14/20 05:59: Immature Granulocyte % (Auto) 3.5H, Neutrophils (%) (Auto) 90.2H, Lymphocytes (%) (Auto) 3.5L, Monocytes (%) (Auto) 2.2, Eosinophils (%) (Auto) 0.0, Basophils (%) (Auto) 0.6, Neutrophils # (Auto) 23.7H, Lymphocytes # (Auto) 0.9L, Monocytes # (Auto) 0.6, Eosinophils # (Auto) 0.0, Basophils # (Auto) 0.2, Nucleated Red Blood Cells % (auto) 0.0, Anion Gap 11, Glomerular Filtration Rate 56.8, Calcium Level 9.2, Estimated Mean Plasma Glucose 177H, Hemoglobin A1c 7.8, Triglycerides Level 121, Total Cholesterol 143, LDL Cholesterol 79, Non-HDL Cholesterol (LDL + VLDL) 103, Total HDL Cholesterol 40, Cholesterol/HDL Ratio 3.575, Thyroid Stimulating Hormone (TSH) 0.806 CBC/BMP Laboratory Tests 03/13/20 12:40 03/14/20 05:59 Microbiology Microbiology 03/13/20 Blood Culture, Received Pending MARIA T ARITA MD Mar 14, 2020 10:51
[2020-03-14] MEDS ORDERED: amLODIPine 10 MG TAB PO ONE (11:00)
[2020-03-14 14:00] VITALS: BP 154/80
[2020-03-14] MEDS: cefTRIAXone SOD 2 GM in D5W MINI-BAG PLUS 50 ML IV SCH (16:00)
[2020-03-14 19:44] LABS: CK-MB VALUE MASS 4.7 NG/ML (<3.6); CPK CREATINE PHOSPHOKINASE 898 U/L (39-308); MB/CK RELATIVE INDEX 0.52 (< OR =4); TROPONIN I < 0.02 NG/ML (< 0.10)
[2020-03-14] MEDS: LEVOTHYROXINE 25MCG TABLET (0.025MG) PO SCH (21:17)
[2020-03-14] MEDS: OMEPRAZOLE 20 MG CAP PO SCH (21:17)
[2020-03-14 22:00] VITALS: BP 138/69
[2020-03-15 01:35] LABS: CPK CREATINE PHOSPHOKINASE 1365 U/L (39-308); MB/CK RELATIVE INDEX 0.59 (< OR =4); TROPONIN I < 0.02 NG/ML (< 0.10)
[2020-03-15] MEDS: LEVALBUTEROL 1.25 MG/0.5 ML CONCENTRATE NEB INH SCH ×5 (03:39→19:37)
[2020-03-15] MEDS: DOXYCYCLINE HYCLATE 100 MG in D5W MINI-BAG PLUS 100 ML IV SCH ×2 (05:45→17:11)
[2020-03-15 06:00] VITALS: BP 146/78
[2020-03-15 06:48] LABS: BASO # 0.1 10^3/uL (0.0-0.2); BASO % 0.3 % (0.0-1.0); HEMATOCRIT 39.9 % (42.0-52.0); HEMOGLOBIN 12.6 g/dl (13.5-17.5); LYMPH # 1.3 10^3/uL (1.5-5.0); LYMPH % 4.3 % (24.0-44.0); MEAN CORPUSCULAR HEMOGLOBIN 26.8 pg (27.0-33.0); MEAN CORPUSCULAR HGB CONC 31.6 g/dl (32.0-36.5); MEAN CORPUSCULAR VOLUME 84.7 fl (80.0-96.0); MONO # 1.6 10^3/uL (0.0-0.8); MONO % 5.1 % (0.0-5.0); NEUTROPHILS # 26.7 10^3/uL (1.5-8.5); NEUTROPHILS % 86.5 % (36.0-66.0); PLATELET COUNT, AUTOMATED 287 10^3/uL (150-450); RED BLOOD COUNT 4.71 10^6/uL (4.30-6.10)
[2020-03-15 06:49] LABS: WHITE BLOOD COUNT 30.9 10^3/uL (4.0-10.0)
[2020-03-15 07:24] LABS: BLOOD UREA NITROGEN 25 MG/DL (7-18); CALCIUM LEVEL 8.8 MG/DL (8.8-10.2); CARBON DIOXIDE LEVEL 25 MEQ/L (21-32); CHLORIDE LEVEL 98 MEQ/L (98-107); CK-MB VALUE MASS 8.2 NG/ML (<3.6); CPK CREATINE PHOSPHOKINASE 1019 U/L (39-308); CREATININE FOR GFR 1.38 MG/DL (0.70-1.30); GLOMERULAR FILTRATION RATE 54.9 (>49); GLUCOSE, FASTING 424 MG/DL (70-100); POTASSIUM SERUM 4.5 MEQ/L (3.5-5.1); SODIUM LEVEL 131 MEQ/L (136-145); TROPONIN I < 0.02 NG/ML (< 0.10)
[2020-03-15] MEDS ORDERED: HumaLOG INSULIN (NovoLOG) PER UNIT SC STA (07:30)
[2020-03-15] MEDS ORDERED: NS 1,000 ML IV ONE ×2 (08:00→20:15)
[2020-03-15] MEDS ORDERED: LEVEMIR (INSULIN DETEMIR) 1 UNITS/0.01ML SC ONE (08:00)
[2020-03-15] MEDS: ENOXAPARIN 40MG/0.4ML SYRINGE (J1650 PER 10MG) SC SCH (08:09)
[2020-03-15] MEDS: ATORVASTATIN 20 MG TAB PO SCH (08:09)
[2020-03-15] MEDS: amLODIPine 10 MG TAB PO SCH (08:10)
[2020-03-15] MEDS: TIOTROPIUM INHALER/CAPSULE (SPIRIVA) INH SCH (08:27)
[2020-03-15] MEDS: SYMBICORT 160/4.5MCG INHALER 6GM INH PRN ×2 (08:31→19:37)
[2020-03-15] MEDS ORDERED: predniSONE 20 MG TAB PO SCH (09:00)
[2020-03-15] MEDS: HumaLOG INSULIN (NovoLOG) PER UNIT SC SCH ×4 (09:40→15:00)
[2020-03-15 11:10] LABS: CALCIUM LEVEL 8.4 MG/DL (8.8-10.2); CREATININE FOR GFR 1.5 MG/DL (0.70-1.30); GLOMERULAR FILTRATION RATE 49.8 (>49); POTASSIUM SERUM 4.4 MEQ/L (3.5-5.1)
--- NOTE | 2020-03-15 12:37 | IPNPDOC ---
Date Seen The patient was seen on 03/15/20. Progress Note SUBJECTIVE: Patient denies any shortness of breath. He continues to have pleuritic chest pain in the left upper lobe. No complaints of cough, fever or chills. Denies any polyuria, polydipsia. No recent weight gain. A1c was 7.66 glucose, however, increased to over 500 secondary to Solu-Medrol being given every 6 hourly with increasing white count as well to over 30,000. Patient denies any dysuria, urgency, frequency, cough is sounding nonproductive. Currently improved OBJECTIVE: PHYSICAL EXAMINATION VITALS SEE BELOW GEN obese. No conversational dyspnea, awake, alert, oriented, comfortable HEENT: NC, AT, PERRLA, no jugular venous distention CVS: RRR, +S1S2, no murmurs noted Lungs: Fair air entry bilaterally, increased egophony and left upper lobe crackles. Diminished breath sounds. No wheezing or rhonchi Abdomen: Soft, Non-distended,, nontender + bs x 4quadrants Extremities: No lower extremity edema, No calf tenderness LABORATORY DATA: SEE BELOW MICROBIOLOGY: SEE BELOW IMAGING STUDIES: INDICATION: left chest pain/sob. COMPARISON: None TECHNIQUE: CT angiography. 100 cc Isovue 370. FINDINGS: There is excellent visualization of the pulmonary arterial vasculature. There are no focal filling defects present that would be considered consistent with acute pulmonary emboli. There is left hilar adenopathy and a small left pleural effusion. The imaged upper abdomen and imaged osseous structures are within normal limits. Evaluation of the lung lindsey shows a 5.7 by 4.9 by 2.4 cm sized left hilar mass density in the left upper lobe and lingula. Air bronchograms are seen within this. In the left lower lobe partially obscured by the left pleural effusion there is an additional asymmetric density. Emphysematous and fibrotic changes are also seen throughout the lung lindsey. IMPRESSION: 1. There is no evidence of a pulmonary embolus. 2. Abnormal left lung densities as described above. Pneumonia/atelectasis/neoplasm. 3. Small left pleural effusion 4. Left hilar adenopathy. <Electronically signed by Steve Iglesias > 03/13/20 1350 ASSESSMENT: 64 y/o male with >80 pack year h/o cigarette abuse quit 6years ago, copd, HTN dyslipidemia, medullary sponge kidney c/o six day history of left-sided pleuritic chest pain described as stabbing, worse when he lays down on his left side and walks around, has progressed to the point where he is unable to sleep all night long, despite taking Tylenol every 4-6 hours at home. He also complains of productive cough, yellow in color green at times without any vomiting but occasional nausea. He denies any fevers, chills, hemoptysis or sob and has not had any prior episodes. His primary care physician gave him antibiotics, which he has taken since Tuesday with no improvement as well as some bronchodilators. He denies any dizziness, lightheadedness, paroxysmal nocturnal dyspnea, dyspnea on exertion, palpitations. In the ER, he was afebrile. CT chest shows a large left hilar mass in the left upper lobe and lingula measuring 5.7 x 4.9 x 2.4 cm reviewed, small pleural effusion, admitted for left upper lobe pneumonia. Community acquired Left upper lobe pneumonia . Acute hypoxic respiratory failure, resolved Contrast-induced nephropathy . Acute kidney injury secondary to contrast Steroid-induced leukocytosis, steroid-induced hyperglycemia/type 2 diabetes , Diabetic neuropathy left pleural effusion COPD, Emphysema, and fibrosis, decompensated HTN DM Dyslipidemia Obesity BMI 37.4 Medullary Sponge Kidney PLAN: Patient is continued on IV antibiotics. Discontinue oxygen if saturations are greater than 88% on room air with ambulation. Per instructional systems designer, Dr. Ojeda. Patient should repeat CT chest to rule out malignancy in light of large consolidation found in the left upper lobe and more than 80, [id number] h istory of tobacco abuse with smoking. Patient was found to have elevated glucose as well as white cells secondary to Solu-Medrol. Solu-Medrol has since been discontinued. He is currently off prednisone at 40 mg daily. No others acute signs of infection. Patient is not hypoxic and does not appear to need broader spectrum coverage for the large consolidation on the CT chest at this time. Glucose level is uncontrolled and he has been given long-acting Levemir insulin as well as 0.2 units per kilo subcutaneous every 2 hourly until glucose is less than 200. If it still cannot be controlled on the floor, patient may need to go to the ICU for intravenous insulin drip. Due to acute kidney injury has been given IV fluids and repeat metabolic panel will be obtained later this evening. Avoid nephrotoxins, do not give metformin in light of increased risk of lactic acidosis due to acute kidney injury. CODE STATUS DNR/DNI. MOLST form signed . DVT prophylaxis: Lovenox Disposition 1-2 more days of IV antibiotics and discharged home. Patient several repeat CT chest in 3 weeks' time to check for resolution of the large left upper lobe mass, if there is no resolution. Patient will benefit for CT-guided biopsy or bronchoscopy to rule out malignancy in light of significant history of tobacco abuse. VS, I&O, 24H, Fishbone Vital Signs/I&O Vital Signs Date Time Temp Pulse Resp B/P (MAP) Pulse Ox O2 Delivery O2 Flow Rate FiO2 03/15/20 09:33 95 Room Air 03/15/20 08:10 96 155/83 03/15/20 06:00 98.2 18 1.0 I&O- Last 24 Hours up to 6 AM 03/15/20 06:00 Intake Total 3610 ml Output Total 0 ml Balance 3610 ml Laboratory Data 24H LABS Laboratory Tests 2 03/14/20 18:44: Total Creatine Kinase 898#H, Creatine Kinase MB 4.7H, Creatine Kinase MB Relative Index 0.52, Troponin I < 0.02 03/15/20 00:38: Total Creatine Kinase 1365H, Creatine Kinase MB 8.0H, Creatine Kinase MB Relative Index 0.59, Troponin I < 0.02 03/15/20 06:13: Total Creatine Kinase 1019H, Creatine Kinase MB 8.2H, Creatine Kinase MB Relative Index 0.80, Troponin I < 0.02, Immature Granulocyte % (Auto) 3.8H, Ne utrophils (%) (Auto) 86.5H, Lymphocytes (%) (Auto) 4.3L, Monocytes (%) (Auto) 5.1H, Eosinophils (%) (Auto) 0.0, Basophils (%) (Auto) 0.3, Neutrophils # (Auto) 26.7H, Lymphocytes # (Auto) 1.3L, Monocytes # (Auto) 1.6H, Eosinophils # (Auto) 0.0, Basophils # (Auto) 0.1, Nucleated Red Blood Cells % (auto) 0.0, Anion Gap 8, Glomerular Filtration Rate 54.9, Calcium Level 8.8 03/15/20 09:22: Bedside Glucose (Misc Panel) 553*H 03/15/20 09:54: Anion Gap 8, Glomerular Filtration Rate 49.8, Calcium Level 8.4L 03/15/20 10:52: Bedside Glucose (Misc Panel) 458H 03/15/20 11:46: Bedside Glucose (Misc Panel) 367H CBC/BMP Laboratory Tests 03/15/20 06:13 03/15/20 09:54 Microbiology Microbiology 03/13/20 Blood Culture - Preliminary, Resulted No growth after 24 hours . All specim... MARIA T ARITA MD Mar 15, 2020 12:37
[2020-03-15 14:00] VITALS: BP 136/62
[2020-03-15] MEDS ORDERED: DEXTROSE 50% 50 ML SYRINGE IV PRN (14:15)
[2020-03-15] MEDS ORDERED: GLUCAGON INJ 1MG VIAL SC PRN (14:15)
[2020-03-15] MEDS ORDERED: GLUCOSE 4GM CHEW TABLET PO PRN (14:15)
[2020-03-15] MEDS: cefTRIAXone SOD 2 GM in D5W MINI-BAG PLUS 50 ML IV SCH (14:31)
--- NOTE | 2020-03-15 14:57 | ECGEPIP ---
[facility] Test Date: 2020-03-14 Pat Name: DERIK FITZGERALD Department: Room: [place] [address] Gender: Male [employer] Registrar: : [id number] Requested By: MARIA T Long Order Number: [id number] Reading MD: Ryan Spencer Measurements Intervals Elizabeth Rate: 101 P: 66 NV: 183 QRS: -40 QRSD: 87 T: 19 QT: 328 QTc: 425 Interpretive Statements SINUS TACHYCARDIA LEFT ANTERIOR FASCICULAR BLOCK Compared to prior tracings in the system, heart rate is now faster Electronically Signed on 03-15-2020 14:57:11 EST by Ryan Spencer
--- NOTE | 2020-03-15 15:58 | REP ---
INDICATION: acute renal failure COMPARISON: 04/16/2019 TECHNIQUE: Real time craft scale ultrasound examination using curved array transducer. FINDINGS: The bilateral kidneys are normal in contour, size, echogenicity, and reniform shape. No hydronephrosis, nephrolithiasis, cystic or renal mass lesion appreciated. No perinephric fluid collection. Right kidney measures 12.7 x 7.2 x 7.1 cm. Left kidney measures 11.2 x 6.2 x 6.9 cm. IMPRESSION: Normal renal ultrasound. No hydronephrosis. <Electronically signed by Morris Bourgeois > 03/15/20 2733
[2020-03-15 16:00] VITALS: BP 143/61
[2020-03-15] MEDS ORDERED: HumuLIN R (REGULAR) INSULIN (NovoLIN R) **100U/ML** PER UNIT IV ONE (16:00)
[2020-03-15] MEDS ORDERED: INSULIN REGULAR IN 0.9 % NACL 100 UNIT in IV 1 EA IV SCH ×4 (16:00→22:04)
[2020-03-15 16:03] VITALS: BP 145/65
[2020-03-15] MEDS: INSULIN IV RATE CHANGE DOCUMENTATION ML/HR XX SCH ×3 (17:00→23:05)
[2020-03-15] MEDS ORDERED: LEVEMIR (INSULIN DETEMIR) 1 UNITS/0.01ML SC SCH (18:00)
[2020-03-15] MEDS ORDERED: HumaLOG INSULIN (NovoLOG) PER UNIT SC SCH (18:00)
[2020-03-15 20:00] VITALS: BP 134/62
[2020-03-15] MEDS: LEVOTHYROXINE 25MCG TABLET (0.025MG) PO SCH (20:03)
[2020-03-15] MEDS: OMEPRAZOLE 20 MG CAP PO SCH (20:04)
[2020-03-15] MEDS: NS 1,000 ML IV SCH (21:08)
[2020-03-15 21:11] LABS: BLOOD UREA NITROGEN 29 MG/DL (7-18); CARBON DIOXIDE LEVEL 25 MEQ/L (21-32); CHLORIDE LEVEL 106 MEQ/L (98-107); GLOMERULAR FILTRATION RATE 58.8 (>49); GLUCOSE, FASTING 281 MG/DL (70-100); POTASSIUM SERUM 4.4 MEQ/L (3.5-5.1); SODIUM LEVEL 138 MEQ/L (136-145)
[2020-03-15 21:12] LABS: C REACTIVE PROTEIN QUANTITATIV 2.78 MG/DL (0.00-0.30); CALCIUM LEVEL 8.8 MG/DL (8.8-10.2); CK-MB VALUE MASS 7.5 NG/ML (<3.6); CPK CREATINE PHOSPHOKINASE 853 U/L (39-308); MB/CK RELATIVE INDEX 0.88 (< OR =4); TROPONIN I < 0.02 NG/ML (< 0.10)
[2020-03-16] VITALS: BP 145/69
[2020-03-16 00:30] LABS: BLOOD UREA NITROGEN 26 MG/DL (7-18); CALCIUM LEVEL 8.1 MG/DL (8.8-10.2); CARBON DIOXIDE LEVEL 25 MEQ/L (21-32); CHLORIDE LEVEL 108 MEQ/L (98-107); CREATININE FOR GFR 1.17 MG/DL (0.70-1.30); GLOMERULAR FILTRATION RATE > 60.0 (>49); GLUCOSE, FASTING 230 MG/DL (70-100); POTASSIUM SERUM 3.9 MEQ/L (3.5-5.1); SODIUM LEVEL 138 MEQ/L (136-145)
[2020-03-16] MEDS: INSULIN IV RATE CHANGE DOCUMENTATION ML/HR XX SCH ×2 (01:04→03:07)
[2020-03-16 04:00] VITALS: BP 148/70
[2020-03-16] MEDS: LEVALBUTEROL 1.25 MG/0.5 ML CONCENTRATE NEB INH SCH ×3 (04:00→07:05)
[2020-03-16 04:30] LABS: BASO # 0.1 10^3/uL (0.0-0.2); BASO % 0.6 % (0.0-1.0); EOS # 0.1 10^3/uL (0.0-0.5); EOS % 0.6 % (0.0-3.0); HEMATOCRIT 38.2 % (42.0-52.0); HEMOGLOBIN 12.2 g/dl (13.5-17.5); LYMPH # 3.2 10^3/uL (1.5-5.0); LYMPH % 14.2 % (24.0-44.0); MEAN CORPUSCULAR HEMOGLOBIN 26.7 pg (27.0-33.0); MEAN CORPUSCULAR HGB CONC 31.9 g/dl (32.0-36.5); MEAN CORPUSCULAR VOLUME 83.6 fl (80.0-96.0); MONO # 1.7 10^3/uL (0.0-0.8); MONO % 7.7 % (0.0-5.0); NEUTROPHILS # 16.2 10^3/uL (1.5-8.5); PLATELET COUNT, AUTOMATED 243 10^3/uL (150-450); RED BLOOD COUNT 4.57 10^6/uL (4.30-6.10); WHITE BLOOD COUNT 22.5 10^3/uL (4.0-10.0)
[2020-03-16] MEDS: DOXYCYCLINE HYCLATE 100 MG in D5W MINI-BAG PLUS 100 ML IV SCH (04:40)
[2020-03-16 04:56] LABS: BLOOD UREA NITROGEN 26 MG/DL (7-18); CARBON DIOXIDE LEVEL 26 MEQ/L (21-32); CHLORIDE LEVEL 108 MEQ/L (98-107); CREATININE FOR GFR 1.09 MG/DL (0.70-1.30); GLOMERULAR FILTRATION RATE > 60.0 (>49); GLUCOSE, FASTING 127 MG/DL (70-100); POTASSIUM SERUM 3.8 MEQ/L (3.5-5.1); SODIUM LEVEL 140 MEQ/L (136-145)
[2020-03-16 04:57] LABS: CALCIUM LEVEL 7.9 MG/DL (8.8-10.2); CPK CREATINE PHOSPHOKINASE 536 U/L (39-308); MB/CK RELATIVE INDEX 0.93 (< OR =4); TROPONIN I 0.02 NG/ML (< 0.10)
[2020-03-16] MEDS: TIOTROPIUM INHALER/CAPSULE (SPIRIVA) INH SCH (07:05)
[2020-03-16] MEDS ORDERED: CEFD300CAP PO (07:17)
[2020-03-16] MEDS ORDERED: DOXY-350 PO (07:17)
[2020-03-16] MEDS ORDERED: BACI1CAP PO (07:17)
[2020-03-16] MEDS: NS 1,000 ML IV SCH (07:19)
[2020-03-16] MEDS ORDERED: HumaLOG INSULIN (NovoLOG) PER UNIT SC SCH ×2 (07:30→21:00)
[2020-03-16] MEDS: cefTRIAXone SOD 2 GM in D5W MINI-BAG PLUS 50 ML IV SCH (07:50)
[2020-03-16] MEDS: ATORVASTATIN 20 MG TAB PO SCH (07:51)
[2020-03-16 07:53] VITALS: BP 124/56
[2020-03-16] MEDS: amLODIPine 10 MG TAB PO SCH (07:53)
[2020-03-16] MEDS: ENOXAPARIN 40MG/0.4ML SYRINGE (J1650 PER 10MG) SC SCH (07:54)
[2020-03-16 08:00] VITALS: BP 124/56
[2020-03-16] MEDS ORDERED: LEVEMIR (INSULIN DETEMIR) 1 UNITS/0.01ML SC SCH (09:00)
--- NOTE | 2020-03-16 10:20 | DS.PDOC ---
Discharge Summary General Date of Admission Mar 13, 2020 at 14:17 Date of Discharge 03/16/20 Discharge Summary DISCHARGE DIAGNOSES: Sepsis Community Acquire Pneumonia in Left Upper Lobe Contrast-induced Nephropathy Acute Kidney injury due to Contrast Acute COPD exacerbation Steroid-induced Leukocytosis Steroid-induced and medical noncompliance with diabetic diet-induced Hyperglycemia needing Insulin iv gtt Obesity BMI 37.5 80- pack year history of cigarette abuse/tobacco abuse-cessation counselling pr ovided NAMITA, noncompliant with CPAP HTN dyslipidemia medullary sponge kidney Metabolic syndrome DM2 DISCHARGE MEDICATIONS: Please see below. ALLERGIES: Please see below. DISCHARGE INSTRUCTIONS: pcp fu appt within [address] chest in 3wks re: SIMON consolidation r/o malignancy. callyour doctor for glucose>300. pcp to refer to pulmonary associates re: simon consolidation for biopsy if repeat ct chest: persistent left hilar mass. HOSPITAL COURSE: 64 y/o male with >80 pack year h/o cigarette abuse quit 6years ago, copd, HTN dyslipidemia, medullary sponge kidney c/o six day history of left-sided pleuritic chest pain described as stabbing, worse when he lays down on his left side and walks around, has progressed to the point where he is unable to sleep all night long, despite taking Tylenol every 4-6 hours at home. He also complains of productive cough, yellow in color green at times without any vomiting but occasional nausea. He denies any fevers, chills, hemoptysis or sob and has not had any prior episodes. His primary care physician gave him antibiotics, which he has taken since Tuesday with no improvement as well as some bronchodilators. He denies any dizziness, lightheadedness, paroxysmal nocturnal dyspnea, dyspnea on exertion, palpitations. In the ER, he was afebril e. CT chest shows a large left hilar mass in the left upper lobe and lingula measuring 5.7 x 4.9 x 2.4 cm reviewed, small pleural effusion, admitted for left upper lobe pneumonia. He was febrile on admission with elevated white count and was started IV ceftriaxone and doxycycline. CT was reviewed by Dr. Ojeda shell shop supervisor and felt that this was more of an infectious process Covid 19 was negative. Due to occasional wheezing. He was also treated for COPD exacerbation with IV Solu-Medrol with subsequent increase in white count and hyperglycemia. A1c was 7. Patient admitted to drinking 8 cups of Pepsi and despite lispro insulin every 2 hourly. Patient did not improve and had to be transferred to ICU for IV insulin drip. He was not in diabetic ketoacidosis and was able to be controlled on insulin drip and IV fluids. He did have an episode of contrast nephropathy with creatinine increasing to 1.5, which improved back to normal with IV fluid hydration with no complaints of shortness of breath after patient's glucose was stabilized and patient's creatinine is back to normal. He was discharged in stable condition. Per the recommendation of our pulmonologists. He is to have a repeat CT of the chest in 3 weeks after completion of antibiotics and for his primary care physician to refer him to shell shop supervisor if the infiltrate and large consolidation are still present in order to arrange for a biopsy. Patient was instructed to have an immediate follow-up with his primary care physician within 7 days of hospital discharge to complete 7 more days of antibiotics at home with Ceftin air and doxycycline along with Bacid to prevent C. difficile colitis as well as to have a repeat CT of the chest in 3 weeks' time. PHYSICAL EXAMINATION ON DISCHARGE: VITAL SIGNS: Please see below. VITALS SEE BELOW GEN obese Speaking in full sentences, AAOx3. No respiratory distress or use of respiratory accessory muscles HEENT: NC, AT, PERRLA, EOMI no pallor. No jugular venous distention. no stridor CVS: RRR, +S1S2, no murmurs noted Lungs: Fair air entry bilaterally, increased egophony and left upper lobe crackles. Diminished breath sounds. No wheezing or rhonchi Abdomen: Soft, Non-distended,, nontender + bs x 4quadrants Extremities: No lower extremity edema, No calf tenderness LABORATORY DATA: Please see below. 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 FINDINGS: The bilateral kidneys are normal in contour, size, echogenicity, and reniform shape. No hydronephrosis, nephrolithiasis, cystic or renal mass lesion appreciated. No perinephric fluid collection. Right kidney measures 12.7 x 7.2 x 7.1 cm. Left kidney measures 11.2 x 6.2 x 6.9 cm. IMPRESSION: Normal renal ultrasound. No hydronephrosis. <Electronically signed by Morris Bourgeois > 03/15/20 6194 INDICATION: left chest pain/sob. COMPARISON: None TECHNIQUE: CT angiography. 100 cc Isovue 370. FINDINGS: There is excellent visualization of the pulmonary arterial vasculature. There are no focal filling defects present that would be considered consistent with acute pulmonary emboli. There is left hilar adenopathy and a small left pleural effusion. The imaged upper abdomen and imaged osseous structures are within normal limits. Evaluation of the lung lindsey shows a 5.7 by 4.9 by 2.4 cm sized left hilar mass density in the left upper lobe and lingula. Air bronchograms are seen within this. In the left lower lobe partially obscured by the left pleural effusion there is an additional asymmetric density. Emphysematous and fibrotic changes are also seen throughout the lung lindsey. IMPRESSION: 1. There is no evidence of a pulmonary embolus. 2. Abnormal left lung densities as described above. Pneumonia/atelectasis/neoplasm. 3. Small left pleural effusion 4. Left hilar adenopathy. <Electronically signed by Steve Iglesias > 03/13/20 1350 TIME SPENT ON DISCHARGE: 30 MIN Vital Signs/I&Os Vital Signs Date Time Temp Pulse Resp B/P (MAP) Pulse Ox O2 Delivery O2 Flow Rate FiO2 03/16/20 07:06 65 03/16/20 04:00 98.8 18 148/70 (96) 93 Room Air 03/15/20 06:00 1.0 I&O- Last 24 Hours up to 6 AM 03/16/20 06:00 Intake Total 4310 ml Output Total 1075 ml Balance 3235 ml Laboratory Data Labs 24H Laboratory Tests 2 03/15/20 09:22: Bedside Glucose (Misc Panel) 553*H 03/15/20 09:54: Anion Gap 8, Glomerular Filtration Rate 49.8, Calcium Level 8.4L 03/15/20 10:52: Bedside Glucose (Misc Panel) 458H 03/15/20 11:46: Bedside Glucose (Misc Panel) 367H 03/15/20 12:55: Bedside Glucose (Misc Panel) 383H 03/15/20 14:23: Bedside Glucose (Misc Panel) 411H 03/15/20 15:12: Bedside Glucose (Misc Panel) 467H 03/15/20 16:03: Bedside Glucose (Misc Panel) 396H, B-Hydroxybutyrate 3.62H 03/15/20 16:59: Bedside Glucose (Misc Panel) 316H 03/15/20 18:02: Bedside Glucose (Misc Panel) 271H 03/15/20 18:59: Bedside Glucose (Misc Panel) 233H 03/15/20 20:02: Bedside Glucose (Misc Panel) 242H 03/15/20 20:23: Erythrocyte Sedimentation Rate 30H, Anion Gap 7L, Glomerular Filtration Rate 58.8, Lactic Acid Level 2.4*H, Calcium Level 8.8, Total Creatine Kinase 853H, Creatine Kinase MB 7.5H, Creatine Kinase MB Relative Index 0.88, Troponin I < 0.02, C-Reactive Protein, Quantitative 2.78H 03/15/20 21:04: Bedside Glucose (Misc Panel) 304H 03/15/20 22:01: Bedside Glucose (Misc Panel) 279H 03/15/20 23:03: Bedside Glucose (Misc Panel) 233H 03/15/20 23:59: Anion Gap 5L, Glomerular Filtration Rate > 60.0, Lactic Acid Level 1.8, Calcium Level 8.1L 03/16/20 01:02: Bedside Glucose (Misc Panel) 208H 03/16/20 03:03: Bedside Glucose (Misc Panel) 160H 03/16/20 04:07: Anion Gap 6L, Glomerular Filtration Rate > 60.0, Calcium Level 7.9L, Immature Granulocyte % (Auto) 4.9H, Neutrophils (%) (Auto) 72.0H, Lymphocytes (%) (Auto) 14.2L, Monocytes (%) (Auto) 7.7H, Eosinophils (%) (Auto) 0.6, Basophils (%) (Auto) 0.6, Neutrophils # (Auto) 16.2H, Lymphocytes # (Auto) 3.2, Monocytes # (Auto) 1.7H, Eosinophils # (Auto) 0.1, Basophils # (Auto) 0.1, Nucleated Red Blood Cells % (auto) 0.1H, Total Creatine Kinase 536H, Creatine Kinase MB 5.0H, Creatine Kinase MB Relative Index 0.93, Troponin I 0.02 CBC/BMP Laboratory Tests 03/15/20 09:54 03/15/20 20:23 03/15/20 23:59 03/16/20 04:07 FSBS Laboratory Tests Test 03/15/20 09:22 03/15/20 10:52 03/15/20 11:46 03/15/20 12:55 Range/Units Bedside Glucose (Misc Panel) 553 458 367 383 80-115 MG/DL Test 03/15/20 14:23 03/15/20 15:12 03/15/20 16:03 03/15/20 16:59 Range/Units Bedside Glucose (Misc Panel) 411 467 396 316 80-115 MG/DL Test 03/15/20 18:02 03/15/20 18:59 03/15/20 20:02 03/15/20 21:04 Range/Units Bedside Glucose (Misc Panel) 271 233 242 304 80-115 MG/DL Test 03/15/20 22:01 03/15/20 23:03 03/16/20 01:02 03/16/20 03:03 Range/Units Bedside Glucose (Misc Panel) 279 233 208 160 80-115 MG/DL Microbiology Microbiology 03/13/20 Blood Culture - Preliminary, Resulted No Growth after 48 hours. All Specime... Discharge Medications Scheduled Atorvastatin Calcium (Atorvastatin Calcium) 20 Mg Tablet, 20 MG PO DAILY, (Reported) Bacillus Coagulans (Bacid with Lactospore) 1 Each Capsule, 1 CAP PO WM Cefdinir (Cefdinir) 300 Mg Capsule, 300 MG PO BID Doxycycline Monohydrate (Doxycycline) 100 Mg Capsule, 100 MG PO BID Ergocalciferol (Vitamin D2) (Vitamin D2) 50,000 Units Cap, 50,000 UNITS PO QW [place], (Reported) MONDAYS Levothyroxine Sodium (Synthroid) 25 Mcg Tab, 25 MCG PO QHS, (Reported) Losartan Potassium (Losartan Potassium) 100 Mg Tablet, 100 MG PO DAILY, (Reported) Metformin HCl (Metformin HCl) 1,000 Mg Tablet, 1,000 MG PO BIDWM, (Reported) Omeprazole (Omeprazole) 20 Mg Cap, 40 MG PO QHS, (Reported) Scheduled PRN Acetaminophen (Tylenol Extra Strength) 500 Mg Tablet, 1,000 MG PO Q6H PRN for PAIN, (Reported) Albuterol Sulfate (Proair Hfa) 108 Mcg/Act Aer, 2 PUFF INH Q4H PRN for SHORTNESS OF BREATH, (Reported) Budesonide/Formoterol (Symbicort 160-4.5 Mcg Inhaler) 60 Puff/Inhaler Aers, 2 PUFF INH BID PRN for SOB/WHEEZING, (Reported) Allergies Coded Allergies: No Known Allergies (Verified , 10/29/02) MARIA T ARITA MD Mar 16, 2020 07:20
== END 2020-03-16 09:35 | disposition home or self-care (01) | DRG 871 ==
LOC: M ED 10:37 → M ED INP 14:17 → ENRESERVTM 15:17 → ENRESERVDT 15:17 → M MSPAV 17:08 → M ICU 03-15 15:43
PROVIDERS: ADMIT General Practice; ATTEND General Practice
DX: A41.9 Sepsis, unspecified organism (principal); J18.9 Pneumonia, unspecified organism; J90 Pleural effusion, not elsewhere classified; J44.1 Chronic obstructive pulmonary disease with (acute) exacerbation; N17.9 Acute kidney failure, unspecified; Q61.5 Medullary cystic kidney; I10 Essential (primary) hypertension; E78.5 Hyperlipidemia, unspecified; E66.9 Obesity, unspecified; Z68.37 Body mass index [BMI] 37.0-37.9, adult; Z91.19 Patient's noncompliance with other medical treatment and regimen; N28.9 Disorder of kidney and ureter, unspecified; D72.829 Elevated white blood cell count, unspecified; F17.200 Nicotine dependence, unspecified, uncomplicated; E88.81 Metabolic syndrome and other insulin resistance; E11.65 Type 2 diabetes mellitus with hyperglycemia; Z79.899 Other long term (current) drug therapy; Z66 Do not resuscitate; E11.40 Type 2 diabetes mellitus with diabetic neuropathy, unspecified

== ENCOUNTER 2020-04-08 08:14 | Emergency (ER) | payer OTHER, BC ==
[~2020-04-08] VITALS: Ht 177.8 cm; Wt 118.3 kg
[~2020-04-08 08:14] MED LIST changes: +AZIT-12 PO; +BACI1CAP PO; +CEFD300CAP PO; +DOXY-350 PO; +VITA50005 PO
[2020-04-08] MEDS ORDERED: GLIM4TAB5 (08:32)
--- NOTE | 2020-04-08 09:17 | REP ---
INDICATION: chest pain. COMPARISON: PA and lateral chest 03/10/2020. TECHNIQUE: Single AP view of the chest performed portably with the patient sitting. FINDINGS: There is slightly increased density inferiorly in the left lung. This is where an infiltrate in the lingula was identified on the comparison study. It is less dense today than previously. This may represent persistent infiltrate or parenchymal scarring. The lung lindsey are otherwise clear. Cardiac size is normal. The bhumika, mediastinum, and skeletal structures are unremarkable except for an orthopedic screw in the right humeral head. IMPRESSION: Parenchymal scarring versus infiltrate inferiorly in the left lung, less dense than on the comparison study. <Electronically signed by Perez Lucas > 04/08/20 0923
[2020-04-08 09:48] LABS: HEMATOCRIT 45.8 % (42.0-52.0); HEMOGLOBIN 13.9 g/dl (13.5-17.5); MEAN CORPUSCULAR HEMOGLOBIN 25.2 pg (27.0-33.0); MEAN CORPUSCULAR HGB CONC 30.3 g/dl (32.0-36.5); PLATELET COUNT, AUTOMATED 225 10^3/uL (150-450); RED BLOOD COUNT 5.52 10^6/uL (4.30-6.10); WHITE BLOOD COUNT 12.6 10^3/uL (4.0-10.0)
[2020-04-08 10:05] LABS: BLOOD UREA NITROGEN 16 MG/DL (7-18); CALCIUM LEVEL 8.7 MG/DL (8.8-10.2); CARBON DIOXIDE LEVEL 28 MEQ/L (21-32); CHLORIDE LEVEL 106 MEQ/L (98-107); CK-MB VALUE MASS 1.7 NG/ML (<3.6); CPK CREATINE PHOSPHOKINASE 97 U/L (39-308); CREATININE FOR GFR 1.06 MG/DL (0.70-1.30); GLOMERULAR FILTRATION RATE > 60.0 (>49); GLUCOSE, FASTING 234 MG/DL (70-100); MB/CK RELATIVE INDEX 1.75 (< OR =4); POTASSIUM SERUM 4.4 MEQ/L (3.5-5.1); SODIUM LEVEL 139 MEQ/L (136-145); TROPONIN I < 0.02 NG/ML (< 0.10)
[2020-04-08] MEDS ORDERED: CHLORTHALIDONE 12.5MG PER 1/2 TABLET PO ONE (10:15)
[2020-04-08] MEDS ORDERED: ISOVUE-370 76% 100ML VIAL As Ordered ONE (10:29)
--- NOTE | 2020-04-08 11:15 | REP ---
INDICATION: persistent lingula infiltrate. COMPARISON: Chest CT dated 03/13/2020. TECHNIQUE: Chest CT with IV contrast. FINDINGS: There is an infiltrate posteriorly/inferiorly in the lingular segment of the left upper lobe that has slightly decreased in size from the prior CT. The small left pleural effusion prese on the comparison CT has almost entirely resolved. There is a left hilar are mass today measuring 2.4 by 3.5 cm. This previously measured 5.7 x 4.9 x 2.4 cm. This mass results in luminal narrowing of the bronchus to the lingular segment of the left upper lobe. Therefore, the infiltrate in the lingula may represent postobstructive pneumonitis. Pulmonary consultation might be considered for further evaluation. There is no mediastinal lymph node enlargement. The right hilus is unremarkable. There is no axillary lymph node enlargement. There are no other lung nodules or masses. The thoracic aorta is unremarkable except for occasional calcified atheroma. Cardiac size is normal. There is no pericardial effusion. Upper abdomen: The liver is diffusely hypodense compatible with hepato steatosis. There are surgical clips in the gallbladder fossa. The visualized areas of the pancreas and spleen are unremarkable. There is no adrenal nodule. IMPRESSION: Left hilar mass as described. This has decreased in size from the comparison CT, however, results in luminal narrowing of the bronchus to the lingula. There is an infiltrate in the lingula that has slightly decreased in size, possibly postobstructive pneumonitis. The left pleural effusion on the prior CT has almost entirely resolved. Consider pulmonary consultation. <Electronically signed by Perez Lucas > 04/08/20 1111
[2020-04-08] MEDS ORDERED: CHLO125TA PO (11:54)
[2020-04-08 12:00] VITALS: BP 152/96
--- NOTE | 2020-04-09 07:38 | ECGEPIP ---
[facility] - ED Test Date: 2020-04-08 Pat Name: DERIK FITZGERALD Department: Room: - Gender: Male Drinking Water Technician: NAIN : 1955 Requested By: Steven Gallegos Order Number: [id number] Reading MD: Steven Tejeda Measurements Intervals Cisco Rate: 72 P: 61 ND: 153 QRS: -44 QRSD: 109 T: 29 QT: 377 QTc: 415 Interpretive Statements SINUS RHYTHM LEFT AXIS DEVIATION SIMILAR TO 03/14/20 Electronically Signed on 04-09-2020 7:38:28 EST by Steven Tejeda
--- NOTE | 2020-04-09 09:47 | ED PDOC ---
Post-Departure Follow-Up gus l[facility]pez [facility] faxed formal report of ct chest for fu Sean Dutton MD Apr 09, 2020 09:47
== END 2020-04-08 12:07 | disposition home or self-care (01) ==
LOC: M ED 08:14
DX: I10 Essential (primary) hypertension (principal); R91.8 Other nonspecific abnormal finding of lung field; E11.9 Type 2 diabetes mellitus without complications; E78.5 Hyperlipidemia, unspecified; J44.9 Chronic obstructive pulmonary disease, unspecified; E66.9 Obesity, unspecified; Z87.891 Personal history of nicotine dependence; Z79.84 Long term (current) use of oral hypoglycemic drugs; Z79.899 Other long term (current) drug therapy
CPT/HCPCS: 36415; 71045; 71260; 80048; 82550; 82553; 84484; 85027; 99284; Q9967

== ENCOUNTER 2020-05-02 07:12 | Emergency (ER) | payer BC, OTHER ==
[~2020-05-02] VITALS: Ht 177.8 cm; Wt 119.3 kg
[~2020-05-02 07:12] MED LIST changes: +CHLO125TA PO; +GLIM4TAB5
[2020-05-02] MEDS ORDERED: CIPR500T3 (07:24)
[2020-05-02] MEDS ORDERED: ISOVUE-370 76% 100ML VIAL As Ordered ONE (08:17)
[2020-05-02 08:27] LABS: BASO # 0.1 10^3/uL (0.0-0.2); BASO % 0.7 % (0.0-1.0); EOS # 0.3 10^3/uL (0.0-0.5); EOS % 1.7 % (0.0-3.0); HEMATOCRIT 44.5 % (42.0-52.0); HEMOGLOBIN 13.9 g/dl (13.5-17.5); LYMPH # 1.5 10^3/uL (1.5-5.0); LYMPH % 9.3 % (24.0-44.0); MEAN CORPUSCULAR HEMOGLOBIN 26.5 pg (27.0-33.0); MEAN CORPUSCULAR HGB CONC 31.2 g/dl (32.0-36.5); MEAN CORPUSCULAR VOLUME 84.8 fl (80.0-96.0); MONO # 1.1 10^3/uL (0.0-0.8); NEUTROPHILS # 12.8 10^3/uL (1.5-8.5); NEUTROPHILS % 78.8 % (36.0-66.0); PLATELET COUNT, AUTOMATED 204 10^3/uL (150-450); RED BLOOD COUNT 5.25 10^6/uL (4.30-6.10); WHITE BLOOD COUNT 16.2 10^3/uL (4.0-10.0)
[2020-05-02 08:40] LABS: PROTHROMBIN TIME 13.4 SECONDS (12.5-14.3)
[2020-05-02 08:41] LABS: PARTIAL THROMBOPLASTIN TIME 33.2 SECONDS (24.2-38.5)
--- NOTE | 2020-05-02 08:50 | REP ---
INDICATION: cough COMPARISON: 04/08/2020 TECHNIQUE: Portable AP view of the chest FINDINGS: The mediastinum and cardiac silhouette are stable and within normal limits for portable technique. The lung lindsey are clear without acute consolidation, effusion, or pneumothorax. Skeletal structures are intact. IMPRESSION: No acute cardiopulmonary process appreciated. <Electronically signed by Morris Bourgeois > 05/02/20 0846
[2020-05-02 09:03] LABS: ALBUMIN 3.4 GM/DL (3.2-5.2); ALT/SGPT 25 U/L (12-78); BILIRUBIN,DIRECT 0.1 MG/DL (0.0-0.2); BILIRUBIN,TOTAL 0.5 MG/DL (0.2-1.0); BLOOD UREA NITROGEN 17 MG/DL (7-18); CALCIUM LEVEL 8.8 MG/DL (8.8-10.2); CARBON DIOXIDE LEVEL 30 MEQ/L (21-32); CHLORIDE LEVEL 103 MEQ/L (98-107); CK-MB VALUE MASS 2.5 NG/ML (<3.6); CPK CREATINE PHOSPHOKINASE 113 U/L (39-308); CREATININE FOR GFR 1.24 MG/DL (0.70-1.30); GLOMERULAR FILTRATION RATE > 60.0 (>49); GLUCOSE, FASTING 194 MG/DL (70-100); MB/CK RELATIVE INDEX 2.21 (< OR =4); POTASSIUM SERUM 4.3 MEQ/L (3.5-5.1); SODIUM LEVEL 139 MEQ/L (136-145); TOTAL PROTEIN 7.1 GM/DL (6.4-8.2); TROPONIN I < 0.02 NG/ML (< 0.10)
--- NOTE | 2020-05-02 09:06 | REP ---
INDICATION: r/o cva. COMPARISON: Comparison study November 04, 2019.. TECHNIQUE: Helical scanning is acquired. 5 mm axial images were reformatted. Coronal MPR images were generated. FINDINGS: Bone window settings demonstrate an intact bony calvarium. There is no evidence of skull fracture or incidental bony calvarial lesion. The visualized paranasal sinuses appear clear. No intraorbital abnormality is seen. On soft tissue window setting images; the lateral, third, and fourth ventricles are normal in size and position. Taylor-white differentiation pattern is normal above and below the tentorium. There are is no evidence of intracranial hemorrhage. No mass, edema, infarction, or midline shift is seen. No extra-axial fluid collection is appreciated. There are small vessel atherosclerotic changes in the periventricular white matter unchanged from the prior study. IMPRESSION: Mild small vessel changes. No acute intracranial abnormality.. <Electronically signed by Ac Hutchison > 05/02/20 0902
--- NOTE | 2020-05-02 09:09 | REP ---
INDICATION: r/o cva COMPARISON: None. TECHNIQUE: Contrast enhancement dose is 75 mL of intravenous Isovue 370. Helical scanning is acquired. 2 mm axial images are re-formatted. Coronal and sagittal MPR images are generated. Coronal and sagittal MIP and oblique MPR images are generated. 3D surface rendered images are generated and viewed rotationally. FINDINGS: Respiratory Care Faculty view is unremarkable. There are mild degenerative changes in the cervical spine. The visualized aortic arch is unremarkable except for some mild vascular calcification at the origin of the great vessels. The common carotid arteries are widely patent and symmetric. Bifurcations show minimal plaquing. No significant stenosis is seen. The cervical segments of the internal carotid arteries are unremarkable bilaterally. Vertebral arteries are widely patent and symmetric. MPR and MIP images show no additional abnormality. Minimal plaquing. No mass or adenopathy is seen. IMPRESSION: Unremarkable carotid CT angiography. <Electronically signed by Ac Hutchison > 05/02/20 0905
--- NOTE | 2020-05-02 09:11 | REP ---
INDICATION: r/o cva. COMPARISON: None. TECHNIQUE: CT contrast dose: 75 ml of intravenous Isovue 370. CT technique: Helical scanning is acquired. 2 mm axial images are reformatted. Maximal intensity projection and multiplanar re-formation images are generated along with 3-D surface rendered color imaging which is viewed rotational. FINDINGS: The distal vertebral arteries are patent and symmetric. Basilar artery is mildly tortuous but unremarkable. Posterior cerebral and superior cerebellar vessels are intact. The distal internal carotid arteries are unremarkable. Anterior and middle cerebral arteries are normal and symmetric. There is no evidence of carr aneurysm or arteriovenous malformation. The sagittal, straight, and sigmoid dural sinuses are patent. IMPRESSION: Unremarkable CT angiography of the brain with IV contrast. <Electronically signed by Ac Hutchison > 05/02/20 0987
[2020-05-02 09:15] VITALS: BP 128/59
[2020-05-02] MEDS ORDERED: ECOT81TA5 PO (09:22)
--- NOTE | 2020-05-02 21:35 | ECGEPIP ---
[facility] - ED Test Date: 2020-05-02 Pat Name: DERIK FITZGERALD Department: Room: - Gender: Male Cobol Developer: TOMMY : 1955 Requested By: ALDO VALENCIA Order Number: [id number] Reading MD: Steven Tejeda Measurements Intervals [place] Rate: 73 P: 61 NY: 153 QRS: -44 QRSD: 106 T: 33 QT: 376 QTc: 415 Interpretive Statements SINUS RHYTHM LEFT AXIS DEVIATION SIMILAR TO 04/08/20 Electronically Signed on 05-02-2020 21:35:14 EST by Steven Tejeda
== END 2020-05-02 09:39 | disposition home or self-care (01) ==
LOC: M ED 07:12
DX: G45.9 Transient cerebral ischemic attack, unspecified (principal); E11.9 Type 2 diabetes mellitus without complications; I10 Essential (primary) hypertension; J44.9 Chronic obstructive pulmonary disease, unspecified; Q61.5 Medullary cystic kidney; Z87.891 Personal history of nicotine dependence; Z79.82 Long term (current) use of aspirin; Z79.84 Long term (current) use of oral hypoglycemic drugs; Z79.899 Other long term (current) drug therapy
CPT/HCPCS: 36415; 70450; 70496; 70498; 71045; 80047; 80048; 80076; 82550; 82553; 84484; 85025; 85610; 85730; 93005; 93041; 94760; 99285; Q9967

== ENCOUNTER → 2020-05-26 | Outpatient (CLI) | payer BC, OTHER ==
[~2020-05-26] MED LIST changes: +CIPR500T3; +ECOT81TA5 PO
== END ==
LOC: M PLARAD 13:28
DX: C34.12 Malignant neoplasm of upper lobe, left bronchus or lung (principal); Z53.9 Procedure and treatment not carried out, unspecified reason

== ENCOUNTER → 2020-06-09 | Outpatient (CLI) | payer BC, OTHER ==
[~2020-06-09] MED LIST changes: -LISI40TA; +LISI40TA4
--- NOTE | 2020-06-09 15:02 | REP ---
INDICATION: DIAGNOSING LEFT UPPER LOBE LUNG CANCER. COMPARISON: Comparison CT study of the chest is from April 08, 2020. The [address] is reviewed as well.. TECHNIQUE: Fifty-eight minutes following the intravenous injection of a 16.92 mCi dose of F-18 FDG, three-dimensional PET scintigraphy is acquired from the skull base to the proximal thighs. Triplanar noncontrast CT scanning is acquired through the same anatomic range for attenuation correction, and image registration with scan parameters optimized to minimize radiation exposure to the patient. PET scintigraphy and CT datasets were fused and displayed on a workstation with multiplanar and projection display capability. FINDINGS: Head and neck soft tissues are unremarkable. There is no abnormal pulmonary parenchymal hypermetabolic uptake. There is minimal residual linear fibrosis in the lingula at the left base. The consolidation seen in the lingula at the left base on 13 March 2020 has largely resolved. The hypertrophied lymph nodes in the left hilar region seen on the 13 March 2020 study have improved. The left pleural effusion seen at that time is resolved. There is no obvious hilar mass on the left today. No endobronchial lesion is seen. There is an area of equivocally increased uptake in the left hilus on PET scintigraphy with maximum standard uptake value of 5.05. However, this appears to overlie the distal main pulmonary artery rather than a bonnie structure. It is of doubtful significance. There is no other abnormal pulmonary parenchymal hypermetabolic uptake. No other abnormal bonnie mediastinal or hilar uptake is seen. In the abdomen and pelvis there is normal distribution of FDG activity to the liver, spleen, gastrointestinal, and genitourinary tracts. No abnormal hypermetabolic uptake is seen in the abdomen or pelvis. IMPRESSION: Morphologic abnormality is observed on the [address] study have either resolved or improved. There is a equivocal focus of mildly hypermetabolic uptake in the left hilus although this may be vascular rather than bonnie. The combination of evolving CT findings and minimal PET activity suggest gradually improving inflammatory disease. Consider additional follow-up chest CT study, preferably with IV contrast if there is no contraindication. <Electronically signed by Ac Hutchison > 06/09/20 6081
== END ==
LOC: M PLARAD 07:28
DX: R91.8 Other nonspecific abnormal finding of lung field (principal); J84.10 Pulmonary fibrosis, unspecified
CPT/HCPCS: 78815; A9552

== ENCOUNTER 2020-06-10 10:26 | Emergency (ER) | payer OTHER, BC ==
[~2020-06-10] VITALS: Ht 177.8 cm; Wt 116.1 kg
--- OUTSIDE RECORDS SUMMARY | 2020-06-10 10:34 | CCD ---
Author Author [facility] Organization [facility] Address Unknown Phone Unavailable Care Team Providers Care Tobacco Packer Name Role Phone Villa, C Jovanna PA Unavailable Unavailable Villa, C Jovanna PA Unavailable Unavailable Villa, C Jovanna PA Unavailable Unavailable Villa, C Jovanna PA Unavailable Unavailable Villa, C Jovanna PA Unavailable Unavailable Villa, C Jovanna PA Unavailable Unavailable Villa, C Jovanna PA Unavailable Unavailable Villa, C Jovanna PA Unavailable Unavailable Villa, C Jovanna PA Unavailable Unavailable Villa, C Jovanna PA Unavailable Unavailable Villa, C Jovanna PA Unavailable Unavailable Villa, C Jovanan PA Unavailable Unavailable Villa, C Jovanna PA Unavailable Unavailable Villa, C Jovanna PA Unavailable Unavailable Villa, C Jovanna PA Unavailable Unavailable Villa, C Jovanna PA Unavailable Unavailable Villa, C Jovanna PA Unavailable Unavailable Villa, C Jovanna PA Unavailable Unavailable Villa, C Jovanna PA Unavailable Unavailable Villa, C Jovanna PA Unavailable Unavailable Villa, C Jovanna PA Unavailable Unavailable Villa, C Jovanna PA Unavailable Unavailable Villa, C Jovanna PA Unavailable Unavailable Villa, C Jovanna PA Unavailable Unavailable Villa, C Jovanna PA Unavailable Unavailable Villa, C Jovanna PA Unavailable Unavailable Villa, C Jovanna PA Unavailable Unavailable Villa, C Jovanna PA Unavailable Unavailable Villa, C Jovanna PA Unavailable Unavailable Villa, C Jovanna PA Unavailable Unavailable Villa, C Jovanna PA Unavailable Unavailable Villa, C Jovanna PA Unavailable Unavailable Villa, C Ojvanna PA Unavailable Unavailable Villa, C Jovanna PA Unavailable Unavailable Villa, C Jovanna PA Unavailable Unavailable Villa, C Jovanna PA Unavailable Unavailable Villa, C Jovanna PA Unavailable Unavailable Villa, C Jovanna PA Unavailable Unavailable Villa, C Jovanna PA Unavailable Unavailable Villa, C Jovanna PA Unavailable Unavailable Villa, C Jovanna PA Unavailable Unavailable Villa, C Jovanna PA Unavailable Unavailable Villa, C Jovanna PA Unavailable Unavailable Villa, C Jovanna PA Unavailable Unavailable Villa, C Jovanna PA Unavailable Unavailable Villa, C Jovanna PA Unavailable Unavailable Villa, C Jovanna PA Unavailable Unavailable Tony Forman MD Unavailable Tony Forman MD Unavailable Tony Forman MD Unavailable MCELHERAN, CARMELITA PA Unavailable Unavailable MCELHERAN, CARMELITA PA Unavailable Unavailable MCELHERAN, CARMELITA PA Unavailable Unavailable MCELHERAN, CARMELITA PA Unavailable Unavailable MCELHERAN, CARMELITA PA Unavailable Unavailable MCELHERAN, CARMELITA PA Unavailable Unavailable MCELHERAN, CARMELITA PA Unavailable Unavailable MCELHERAN, CARMELITA PA Unavailable Unavailable MCELHERAN, CARMELITA PA Unavailable Unavailable MCELHERAN, CARMELITA PA Unavailable Unavailable MCELHERAN, CARMELITA PA Unavailable Unavailable MCELHERAN, CARMELITA PA Unavailable Unavailable MCELHERAN, CARMELITA PA Unavailable Unavailable MCELHERAN, CARMELITA PA Unavailable Unavailable MCELHERAN, CARMELITA PA Unavailable Unavailable MCELHERAN, CARMELITA PA Unavailable Unavailable MCELHERAN, CARMELITA PA Unavailable Unavailable MCELHERAN, CARMELITA PA Unavailable Unavailable MCELHERAN, CARMELITA PA Unavailable Unavailable MCELHERAN, CARMELITA PA Unavailable Unavailable MCELHERAN, CARMELITA PA Unavailable Unavailable MCELHERAN, CARMELITA PA Unavailable Unavailable MCELHERAN, CARMELITA PA Unavailable Unavailable MCELHERAN, CARMELITA PA Unavailable Unavailable MCELHERAN, CARMELITA PA Unavailable Unavailable MCELHERAN, CARMELITA PA Unavailable Unavailable MCELHERAN, CARMELITA PA Unavailable Unavailable MCELHERAN, CARMELITA PA Unavailable Unavailable Fish, B Panchito WEN Unavailable Unavailable Fish, B Panchito WEN Unavailable Unavailable Fish, B Panchito WEN Unavailable Unavailable Fish, B Panchito WEN Unavailable Unavailable Fish, B Panchito WEN Unavailable Unavailable Fish, B Panchito WEN Unavailable Unavailable Fish, B Panchito WEN Unavailable Unavailable Fish, B Panchito WEN Unavailable Unavailable Fish, B Panchito WEN Unavailable Unavailable Fish, B Panchito WEN Unavailable Unavailable Fish, B Panchito WEN Unavailable Unavailable Fish, B Panchito WEN Unavailable Unavailable Fish, B Panchito WEN Unavailable Unavailable Fish, B Panchito WEN Unavailable Unavailable Fish, B Panchito WEN Unavailable Unavailable Fish, B Panchito WEN Unavailable Unavailable Fish, B Panchito WEN Unavailable Unavailable Fish, B Panchito WEN Unavailable Unavailable Fish, B Panchito WEN Unavailable Unavailable Fish, B Panchito WEN Unavailable Unavailable Fish, B Panchito WEN Unavailable Unavailable Fish, B Panchito WEN Unavailable Unavailable Fish, B Panchito WEN Unavailable Unavailable Fish, B Panchito WEN Unavailable Unavailable Fish, B Panchito WEN Unavailable Unavailable Fish, B Panchito WEN Unavailable Unavailable Fish, B Panchito WEN Unavailable Unavailable Fish, B Panchito WEN Unavailable Unavailable Fish, B Panchito WEN Unavailable Unavailable Fish, B Panchito WEN Unavailable Unavailable Fish, B Panchito WEN Unavailable Unavailable Fish, B Panchito WEN Unavailable Unavailable Fish, B Panchito WEN Unavailable Unavailable Fish, B Panchito WEN Unavailable Unavailable Fish, B Panchito WEN Unavailable Unavailable Fish, B Panchito WEN Unavailable Unavailable Fish, B Panchito WEN Unavailable Unavailable Fish, B Panchito WEN Unavailable Unavailable Fish, B Panchito WEN Unavailable Unavailable Fish, B Panchito WEN Unavailable Unavailable Fish, B Panchito WEN Unavailable Unavailable Fish, B Panchito WEN Unavailable Unavailable Fish, B Panchito WEN Unavailable Unavailable Fish, B Panchito WEN Unavailable Unavailable Fish, B Panchito WEN Unavailable Unavailable Fish, B Panchito WEN Unavailable Unavailable Fish, B Panchito WEN Unavailable Unavailable Fish, B Panchito WEN Unavailable Unavailable Fish, B Panchito WEN Unavailable Unavailable Fish, B Panchito WEN Unavailable Unavailable Fish, B Panchito WEN Unavailable Unavailable Fish, B Panchito WEN Unavailable Unavailable Fish, B Panchito WEN Unavailable Unavailable MCELHERAN, CARMELITA PA Unavailable Unavailable MCELHERAN, CARMELITA PA Unavailable Unavailable MCELHERAN, CARMELITA PA Unavailable Unavailable MCELHERAN, CARMELITA PA Unavailable Unavailable MCELHERAN, CARMELITA PA Unavailable Unavailable MCELHERAN, CARMELITA PA Unavailable Unavailable MCELHERAN, CARMELITA PA Unavailable Unavailable MCELHERAN, CARMELITA PA Unavailable Unavailable MCELHERAN, CARMELITA PA Unavailable Unavailable MCELHERAN, CARMELITA PA Unavailable Unavailable MCELHERAN, CARMELITA PA Unavailable Unavailable MCELHERAN, CARMELITA PA Unavailable Unavailable MCELHERAN, CARMELITA PA Unavailable Unavailable MCELHERAN, CARMELITA PA Unavailable Unavailable MCELHERAN, CARMELITA PA Unavailable Unavailable MCELHERAN, CARMELITA PA Unavailable Unavailable MCELHERAN, CARMELITA PA Unavailable Unavailable MCELHERAN, CARMELITA PA Unavailable Unavailable MCELHERAN, CARMELITA PA Unavailable Unavailable MCELHERAN, CARMELITA PA Unavailable Unavailable MCELHERAN, CARMELITA PA Unavailable Unavailable MCELHERAN, CARMELITA PA Unavailable Unavailable MCELHERAN, CARMELITA PA Unavailable Unavailable MCELHERAN, CARMELITA PA Unavailable Unavailable MCELHERAN, CARMELITA PA Unavailable Unavailable MCELHERAN, CARMELITA PA Unavailable Unavailable MCELHERAN, CARMELITA PA Unavailable Unavailable MCELHERAN, CARMELITA PA Unavailable Unavailable Rafael, A Kira PA Unavailable Unavailable [place], A Kira PA Unavailable Unavailable [place], A Kira PA Unavailable Unavailable [place], A Kira PA Unavailable Unavailable [place], A Kira PA Unavailable Unavailable [place], A Kira PA Unavailable Unavailable Rafael, A Kira PA Unavailable Unavailable Rafael, A Kira PA Unavailable Unavailable Rafael, A Kira PA Unavailable Unavailable Rafael, A Kira PA Unavailable Unavailable Rafael, A Kira PA Unavailable Unavailable [place], A Kira PA Unavailable Unavailable Rafael, A Kira PA Unavailable Unavailable [place], A Kira PA Unavailable Unavailable Rafael, A Kira PA Unavailable Unavailable Rafael, A Kira PA Unavailable Unavailable [place], A Kira PA Unavailable Unavailable Rafael, A Kira PA Unavailable Unavailable [place], A Kira PA Unavailable Unavailable [place], A Kira PA Unavailable Unavailable [place], A Kira PA Unavailable Unavailable Rafael, A Kira PA Unavailable Unavailable Rafael, A Kira PA Unavailable Unavailable Rafael, A Kira PA Unavailable Unavailable Rafael, A Kira PA Unavailable Unavailable [place], A Kira PA Unavailable Unavailable Rafael, A Kira PA Unavailable Unavailable Rafael, A Kira PA Unavailable Unavailable Rafael, A Kira PA Unavailable Unavailable Rafael, A Kira PA Unavailable Unavailable Tony Forman MD Unavailable Tony Forman MD Unavailable Smart MD, Tony L Unavailable Smart MD, Tony L Unavailable Smart MD, Tony L Unavailable Smart MD, Tony L Unavailable Smart MD, Tony L Unavailable Smart MD, Tony L Unavailable Smart MD, Tony L Unavailable Smart MD, Tony L Unavailable Smart MD, Tony L Unavailable Smart MD, Tony L Unavailable Smart MD, Tony L Unavailable Smart MD, Tony L Unavailable Smart MD, Tony L Unavailable Smart MD, Tony L Unavailable Smart MD, Tony L Unavailable Smart MD, Tony L Unavailable Smart MD, Tony L Unavailable Smart MD, Tony L Unavailable Smart MD, Tony L Unavailable Smart MD, Tony L Unavailable Smart MD, Tony L Unavailable Smart MD, Tony L Unavailable Smart MD, Tony L Unavailable Smart MD, Tony L Unavailable Smart MD, Tony L Unavailable Smart MD, Tony L Unavailable Smart MD, Tony L Unavailable Smart MD, Tony L Unavailable Smart MD, Tony L Unavailable Smart MD, Tony L Unavailable Smart MD, Tony L Unavailable Smart MD, Tony L Unavailable Smart MD, Tony L Unavailable Smart MD, Tony L Unavailable Smart MD, Tony L Unavailable Smart MD, Tony L Unavailable Smart MD, Tony L Unavailable Smart MD, Tony L Unavailable Smart MD, Tony L Unavailable Smart MD, Tony L Unavailable Smart MD, Tony L Unavailable Smart MD, Tony L Unavailable Smart MD, Tony L Unavailable Smart MD, Tony L Unavailable Smart MD, Tony L Unavailable Smart MD, Tony L Unavailable Re-disclosure Warning The records that you are about to access may contain information from federally-assisted alcohol or drug abuse programs. If such information is present, then the following federally mandated warning applies: This information has been disclosed to you from records protected by federal confidentiality rules (42 CFR part 2). The federal rules prohibit you from making any further disclosure of this information unless further disclosure is expressly permitted by the written consent of the person to whom it pertains or as otherwise permitted by 42 CFR part 2. A general authorization for the release of medical or other information is NOT sufficient for this purpose. The Federal rules restrict any use of the information to criminally investigate or prosecute any alcohol or drug abuse patient.The records that you are about to access may contain highly sensitive health information, the redisclosure of which is protected by Article 27-F of the [facility] Public Health law. If you continue you may have access to information: Regarding HIV / AIDS; Provided by facilities licensed or operated by the [facility] Office of Mental Health; or Provided by the [facility] Office for People With Developmental Disabilities. If such information is present, then the following [facility] mandated warning applies: This information has been disclosed to you from confidential records which are protected by state law. State law prohibits you from making any further disclosure of this information without the specific written consent of the person to whom it pertains, or as otherwise permitted by law. Any unauthorized further disclosure in violation of state law may result in a fine or long-term sentence or both. A general authorization for the release of medical or other information is NOT sufficient authorization for further disc losure. Family History Family Member Name Family Member Gender Family Member Status Date o f Status Description Data Source(s) Unknown Male Problem [facility] ([facility] Unknown Male Problem MED[facility] ([facility]) Unknown Female Problem MEDENT ([facility] Encounters Encounter Providers Location Date Indications Data Source(s ) Outpatient Attender: Celina Forman MDReferrer: Celina Forman MD 02/05/2020 07:34:54 AM EDT [facility] Recurring Patient Attender: López Forman MDReferrer: López Forman MD 01/28/2020 02:19:41 PM EDT [facility] Outpatient Attender: Celina Forman MDReferrer: Celina Forman MD 01/08/2020 07:40:29 AM EDT [facility] Recurring Patient Attender: López Forman MDReferrer: López Forman MD 01/07/2020 12:54:04 PM EDT [facility] Outpatient Attender: Celina Forman MDReferrer: Celina Forman MD 10/29/2019 01:38:44 PM EDT [facility] Recurring Patient Attender: López Forman MDReferrer: López Forman MD 10/29/2019 01:09:11 PM EDT [facility] Recurring Patient Attender: López Forman MDReferrer: López Forman MD 10/03/2019 09:18:24 AM EDT [facility] Outpatient Attender: Celina Forman MDReferrer: Celina Forman MD 08/20/2019 09:59:27 AM EDT [facility] Recurring Patient Attender: López Forman MDReferrer: López Forman MD 08/20/2019 09:16:47 AM EDT [facility] Recurring Patient Attender: López Forman MDReferrer: López Forman MD 08/03/2019 09:38:39 AM EDT [facility] Outpatient Attender: Celina Forman MDReferrer: Celina Forman MD 07/02/2019 01:05:01 PM EDT [facility] [address] [place] [phone] 06/27/2019 12:00:00 AM EST eCW1 (Formerly [facility]) Recurring Patient Referrer: CARMELITA PRATT 0 11:15:28 AM EST [facility] Outpatient Attender: Kira Hall PAReferrer: Celina Forman MD 06/20/2019 07:54:08 AM EST [facility] Outpatient Referrer: CARMELITA PRATT 06/19/2019 07:43 :00 AM EST [facility] [address] [place], [place] [phone] 06/18/2019 12:00:00 AM EST eCW1 (Formerly [facility]) [facility] [address] [place] [phone] 06/11/2019 12:00:00 AM EST eCW1 ([facility]ly [facility]) Outpatient Referrer: CARMELITA PRATT 06/06/2019 02:22 :00 PM EST [facility] [address] [place], [place] [phone] 05/29/2019 12:00:00 AM EST eCW1 ([facility]) Recurring Patient Attender: López Forman MDReferrer: López Forman MD 05/28/2019 11:11:00 AM EST [facility] Recurring Patient Attender: López Forman MDReferrer: López Forman MD 05/28/2019 10:57:14 AM EST [facility] [address] [place] [phone] 05/28/2019 12:00:00 AM EST eCW1 ([facility]ly [facility]) [facility] [address] [place] [phone] 05/21/2019 12:00:00 AM EST eCW1 ([facility]) Outpatient Attender: Panchito Zelaya MD Physical Therapy 05/18/2019 0 9:15:00 AM EST MEDENT ([facility]) Outpatient Referrer: CARMELITA PRATT 05/18/2019 06:17 :00 AM EST [facility] Outpatient Referrer: CARMELITA PRATT 05/03/2019 12:10 :00 PM EST [facility] Recurring Patient Attender: López BEATTYeferrer: López Forman MD 04/13/2019 12:30:47 PM EST [facility] Outpatient Referrer: Jovanna PRATT 04/12/2019 12 :00:00 AM EST Solitary pulmonary nodule [facility] Solitary pulmonary nodule Medications Medication Brand Name Start Date Product Form Dose Route Admi nistrative Instructions Pharmacy Instructions Status Indications Reaction Description Data Source(s) 500 mg 04/30/2020 12:00:00 AM EST tablet 20 TAKE ONE TABLET BY MOUTH TWICE A DAY FOR 10 DAYS TAKE ONE TABLET BY MOUTH TWICE A DAY FOR 10 DAYS SOLD: 04/30/2020 [facility] Nystatin [id number] UNT/ML Topical Cream 100,000 unit/gram NYSTA TIN 04/30/2020 12:00:00 AM EST cream 30 APPLY A THIN TOBIAS M TO AFFECTED AREA(S) TWO TIMES A DAY APPLY A THIN FILM TO AFFECTED AREA(S) TWO TIMES A DAY SOLD: [facility] 25 mg 04/08/2020 12:00:00 AM EST tablet 30 TAKE ONE-HALF TABLET BY MOUTH EVERY MORNING TAKE ONE-HALF TABLET BY MOUTH EVERY MORNING SOLD: 04/09/2020 [facility] glimepiride 4 MG Oral Tablet GLIMEPIRIDE 03/19/2020 12:00:00 AM EST t ablet 180 TAKE 2 TABLETS [8MG] BY MOUTH ONCE DAILY TAKE 2 TABLET S [8MG] BY MOUTH ONCE DAILY SOLD: 03/19/2020 [facility] 100 mg 03/16/2020 12:00:00 AM EST capsule 14 TAKE ONE CAPSULE BY MOUTH TWICE A DAY TAKE ONE CAPSULE BY MOUTH TWICE A DAY SOLD: 03/16/2020 [facility] 300 mg 03/16/2020 12:00:00 AM EST capsule 14 TAKE ONE CAPSULE BY MOUTH TWICE A DAY TAKE ONE CAPSULE BY MOUTH TWICE A DAY SOLD: 03/16/2020 [facility] 250 mg 03/10/2020 12:00:00 AM EST tablet 4 TAKE ONE TABLET BY MOUTH EVERY DAY FOR 4 DAYS TAKE ONE TABLET BY MOUTH EVERY DAY FOR 4 DAYS SOLD: 03/11/2020 [facility] 875-125 mg 03/10/2020 12:00:00 AM EST tablet 14 TAKE ONE TABLET BY MOUTH TWICE A DAY FOR 7 DAYS TAKE ONE TABLET BY MOUTH TWICE A DAY FOR 7 DAYS SOLD: 03/11/2020 [facility] Metformin hydrochloride 1000 MG Oral Tablet 1,000 mg METFORM IN HCL 02/19/2020 12:00:00 AM EDT tablet 180 TAKE ONE TABLET BY MOUTH TWICE A DAY BEFORE BREAKFAST AND DINNER TAKE ONE TABLET BY MOUTH TWICE A DAY [facility] BREAKFAST AND DINNER SOLD: 02/21/2020 [facility] Metformin hydrochloride 1000 MG Oral Tablet 1,000 mg METFORM IN HCL 02/19/2020 12:00:00 AM EDT tablet 180 TAKE ONE TABLET BY MOUTH TWICE A DAY BEFORE BREAKFAST AND DINNER TAKE ONE TABLET BY MOUTH TWICE A DAY [facility] BREAKFAST AND DINNER SOLD: 05/24/2020 [facility] 5 mg 01/26/2020 12:00:00 AM EDT tablet 1 TAKE 1 TABLET BY MOUTH 1 HOUR PRIOR TO PROCEDURE MAXIMUM DAILY DOSE = 1 TABLET TAKE 1 TABLET BY MOUTH 1 HOUR PRIOR TO PROCEDURE MAXIMUM DAILY DOSE = 1 TABLET SOLD: 01/31/2020 [facility] Alprazolam 0.25 MG Oral Tablet ALPRAZOLAM 01/26/2020 12:00:00 AM EDT t ablet 1 TAKE 1 TABLET BY MOUTH AT ARRIVAL OF MRI MAXIMUM DAILY DOSE = 1 TABLET TAKE 1 TABLET BY MOUTH AT ARRIVAL OF MRI MAXIMUM DAILY DOSE = 1 TABLET SOLD: 01/31/2020 [facility] 100 mg 12/18/2019 12:00:00 AM EDT tablet 90 TAKE ONE TABLET BY MOUTH EVERY DAY TAKE ONE TABLET BY MOUTH EVERY DAY SOLD: 05/28/2020 [facility] 100 mg 12/18/2019 12:00:00 AM EDT tablet 90 TAKE ONE TABLET BY MOUTH EVERY DAY TAKE ONE TABLET BY MOUTH EVERY DAY SOLD: 12/19/2019 [facility] 100 mg 12/18/2019 12:00:00 AM EDT tablet 90 TAKE ONE TABLET BY MOUTH EVERY DAY TAKE ONE TABLET BY MOUTH EVERY DAY SOLD: 02/28/2020 [facility] atorvastatin 20 MG Oral Tablet ATORVASTATIN CALCIUM 11/19/2019 1 2:00:00 AM EDT tablet 90 TAKE ONE TABLET BY MOUTH EVERY D AY TAKE ONE TABLET BY MOUTH EVERY DAY SOLD: 05/15/2020 [facility] atorvastatin 20 MG Oral Tablet ATORVASTATIN CALCIUM 11/19/2019 1 2:00:00 AM EDT tablet 90 TAKE ONE TABLET BY MOUTH EVERY D AY TAKE ONE TABLET BY MOUTH EVERY DAY SOLD: 02/15/2020 [facility] atorvastatin 20 MG Oral Tablet ATORVASTATIN CALCIUM 11/19/2019 1 2:00:00 AM EDT tablet 90 TAKE ONE TABLET BY MOUTH EVERY D AY TAKE ONE TABLET BY MOUTH EVERY DAY SOLD: 11/21/2019 [facility] 0.4 mg 05/22/2019 12:00:00 AM EST capsule 30 TAKE 1 CAPSULE BY MOUTH ONCE A DAY TAKE 1 CAPSULE BY MOUTH ONCE A DAY SOLD: 05/26/2019 [facility] 0.4 mg 05/22/2019 12:00:00 AM EST capsule 30 TAKE 1 CAPSULE BY MOUTH ONCE A DAY TAKE 1 CAPSULE BY MOUTH ONCE A DAY SOLD: 06/23/2019 [facility] Tamsulosin hydrochloride 0.4 MG Oral Capsule Tamsulosi n HCl 0.4 MG Tamsulosin HCl 0.4 MG 05/21/2019 12:00:00 AM EST suspended 1 capsule eCW1 ([facility]) Tamsulosin hydrochloride 0.4 MG Oral Capsule Tamsulosi n HCl 0.4 MG Tamsulosin HCl 0.4 MG 05/21/2019 12:00:00 AM EST active 1 capsule eCW1 ([facility]) 500 mg 05/05/2019 12:00:00 AM EST tablet 7 TAKE ONE TABLET BY MOUTH EVERY DAY TAKE ONE TABLET BY MOUTH EVERY DAY SOLD: 05/05/2019 [facility] 5-325 mg 05/05/2019 12:00:00 AM EST tablet 20 TAKE ONE TABLET BY MOUTH EVERY 4 HOURS NEEDED FOR PAIN MAXIMUM DAILY DOSE = 4 TABLETS TAKE ONE TABLET BY MOUTH EVERY 4 HOURS NEEDED FOR PAIN MAXIMUM DAILY DOSE = 4 TABLETS SOLD: 05/05/2019 [facility] 500 mg 04/13/2019 12:00:00 AM EST capsule 20 TAKE ONE CAPSULE BY MOUTH EVERY 12 HOURS TAKE ONE CAPSULE BY MOUTH EVERY 12 HOURS SOLD: 04/15/2019 [facility] 15 mg 01/16/2019 12:00:00 AM EDT tablet 90 TAKE ONE TABLET BY MOUTH EVERY DAY TAKE ONE TABLET BY MOUTH EVERY DAY SOLD: 10/23/2019 [facility] 15 mg 01/16/2019 12:00:00 AM EDT tablet 90 TAKE ONE TABLET BY MOUTH EVERY DAY TAKE ONE TABLET BY MOUTH EVERY DAY SOLD: 07/16/2019 [facility] 15 mg 01/16/2019 12:00:00 AM EDT tablet 90 TAKE ONE TABLET BY MOUTH EVERY DAY TAKE ONE TABLET BY MOUTH EVERY DAY SOLD: 04/19/2019 [facility] glimepiride 4 MG Oral Tablet GLIMEPIRIDE 01/12/2019 12:00:00 AM EDT ta blet 90 TAKE ONE TABLET BY MOUTH EVERY DAY STRENGTH INCREASE TAKE ONE TABLET BY MOUTH EVERY DAY STRENGTH INCREASE SOLD: 12/19/2019 [facility] glimepiride 4 MG Oral Tablet GLIMEPIRIDE 01/12/2019 12:00:00 AM EDT ta blet 90 TAKE ONE TABLET BY MOUTH EVERY DAY STRENGTH INCREASE TAKE ONE TABLET BY MOUTH EVERY DAY STRENGTH INCREASE SOLD: 07/16/2019 [facility] 4 mg 01/12/2019 12:00:00 AM EDT tablet 90 TAKE ONE TABLET BY MOUTH EVERY DAY STRENGTH INCREASE TAKE ONE TABLET BY MOUTH EVERY DAY STRENGTH INCREASE S OLD: 04/15/2019 [facility] 1,000 mg 11/27/2018 12:00:00 AM EDT tablet 180 TAKE ONE TABLET BY MOUTH TWICE A DAY TAKE ONE TABLET BY MOUTH TWICE A DAY SOLD: 08/23/2019 [facility] 100 mg 11/27/2018 12:00:00 AM EDT tablet 90 TAKE ONE TABLET BY MOUTH EVERY DAY (DISCONTINUE LISINOPRIL) TAKE ONE TABLET BY MOUTH EVERY DAY (DISC ONTINUE LISINOPRIL) SOLD: 08/23/2019 [facility] Losartan Potassium 100 MG Oral Tablet LOSARTAN POTASSIUM 12:00:00 AM EDT tablet 90 TAKE ONE TABLET BY MOUTH VAMSI (DISCONTINUE LISINOPRIL) TAKE ONE TABLET BY MOUTH EVERY DAY (DISCONTINUE LISINOPRIL) SOLD: 05/26/2019 [facility] 1,000 mg 11/27/2018 12:00:00 AM EDT tablet 180 TAKE ONE TABLET BY MOUTH TWICE A DAY TAKE ONE TABLET BY MOUTH TWICE A DAY SOLD: 05/26/2019 [facility] atorvastatin 20 MG Oral Tablet ATORVASTATIN CALCIUM 11/01/2018 1 2:00:00 AM EDT tablet 90 TAKE ONE TABLET BY MOUTH EVERY D AY TAKE ONE TABLET BY MOUTH EVERY DAY SOLD: 05/05/2019 [facility] atorvastatin 20 MG Oral Tablet ATORVASTATIN CALCIUM 11/01/2018 1 2:00:00 AM EDT tablet 90 TAKE ONE TABLET BY MOUTH EVERY D AY TAKE ONE TABLET BY MOUTH EVERY DAY SOLD: 08/20/2019 [facility] Insurance Providers Payer name Policy type / Coverage type Policy ID Covered republican ID Covered republican's relationship to huerta Policy [place] Plan Information [facility] FEDERAL EMPLOYEE PROGRAM [id number] SP [id number] ADMINISTRATION [id number] SP [id number] [employer] [place] [id number] SP [id number] BC FEDERAL EMPLOYEE PROGRAM [id number] SP [id number] [employer] [place] O [id number] S [id number] S [id number] [place] FED[place] B [id number] S [id number] [facility] FEDERAL EMPLOYEE PROGRAM [id number] SP [id number] MEDICARE [id number] SP [id number] MEDICARE C [id number] S [id number] [facility] [employer] [id number] SP [id number] OTHER B [id number] Self [id number] Awaiting Information B pending SELF pending [employer] [place]) [place] [id number] Self [id number] [place] Med[employer] Part B [id number] Self [id number] [facility] ([place]) Workers Compensation [id number] Self [id number] [employer]) [place] Compensation [id number] Self [id number] [place] [employer] Part B [id number] Self [id number] [employer]) [place] [id number] Self [id number] [place] [employer] Part B [id number] Self [id number] [employer]) [place] [id number] Self [id number] [place] [employer] Part B [id number] Self [id number] [employer] [id number] Self [id number] [place] [employer] Part B [id number] Self [id number] [employer]) Workers Compensation [id number] Self [id number] [place] Med[employer] Part B [id number] Self [id number] MEDICARE [id number] SP [id number] [facility] Federal Plan Commercial [id number] Self [id number] [facility] [id number] SP [id number] [employer] [facility] Medigap Part B [id number] Self [id number] [facility] Commercial [id number] Self [id number] [employer]) Workers Compensation [id number] Self [id number] [place] Commercial [id number] Self [id number] [employer]) Workers Compensation [id number] Self [id number] [place] Commercial [id number] Self [id number] [facility] FEDERAL EMPLOYEE PROGRAM [id number] SP [id number] [facility] Federal Plan Commercial [id number] Self [id number] [employer]LL[employer] [facility] FEDERAL [id number] SP [id number] [facility] Federal Plan Commercial [id number] Self [id number] [facility] Federal Plan Medigap Part B Self HEALTH NET [place] CHOICE [id number] SP [id number] [employer] CHOICE UNAVAILABLE SP UNAVAILABLE [employer]. [id number] SP [id number] [facility] Ins Workers Compensation Self [facility] O [id number] S [id number] [employer]. [id number] SP [id number] [id number] CL#[id number] SP CL#[id number] OTHER NO FAULT [id number] SP [id number] [facility] [place] FEDERAL [id number] SP [id number] Problems, Conditions, and Diagnoses Code Display Name Description Problem Type Effective Dates Data Source(s) Q61.5 109684937 Medullary sponge kidney Problem 05/29/2019 1 2:00:00 AM EST eCW1 ([facility]) N20.0 70520520 Kidney stone on left side Problem 05/29/2019 12:00:00 AM EST eCW1 ([facility]) N13.8 Obstructive uropathy Other obstructive and reflux urop athy Problem 05/21/2019 12:00:00 AM EST eCW1 ([facility]) N40.1 Lower urinary tract symptoms due to valerie gn prostatic hypertrophy Benign prostatic hyperplasia with lower urinary tract symptoms Problem 05/21/2019 12:00:00 AM EST eCW1 ([facility]) R91.1 Solitary pulmonary nodule Solitary pulmonary nodule Di agnosis 04/12/2019 11:39:01 AM [facility] Surgeries/Procedures Procedure Description Date Indications Data Source(s) ARTHROCENTESIS ASPIR&/INJECTION MAJOR JT/BURSA 020 12:00:00 AM IMAN STAN ([facility]) Results ID Date Data Source [id number] 02/05/2020 07:34:54 AM EDT [facility]Name: Derik SanchezB: 4Provider: Celina Forman: 02/04/2020 Reason For VisitThmartha Sanchez is here today for right shoulder. Derik Sanchez is an established patient here for follow up and Derik Sanchez is here for evaluation of MRI results. No changes. W.C. DOI: 12/24/2017. 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 History of Present IllnessCHIEF COMPLAINTFollow-up of right shoulder.HISTORY OF PRESENT ILLNESSThe patient is a 64-year-old male who is here for follow-up of right shoulder. He has had chronic discomfort and pain. He had an injection in the past. Increased stiffness, dull pain, but it can be sharp, 4/10 and sometime it is 5/10. He is about 10 months' status post from a right shoulder 1-anchor cuff for decompression. Work related surgery, done on 03/07/2019. He has a really significantly worn a tendon, kind of a [place] cheese with multiple holes. Results/Data OtherHe had a new MRI done, dated 02/01/2020, MRI shows a some footprint insertional infraspinatus tear, but otherwise, tendinosis. No full thickness tear, mild supraspinatus atrophy, mild tendinosis, long head biceps and some bursitis in the subacromial subdeltoid space. AssessmentASSESSMENTRight shoulder chronic pain, status post work- related injury, work-related surgery with moderately diminished range of motion. PlanPlan, Assessment and Recommendation(s) Scheduled Loss of Use Body Part 1: Right shoulderROM 1: Forward elevates 150, 150, 150 degrees; he abducts to 90, 90, 90 degrees; he externally rotates 40, 40, 40 degrees; and internally rotates to about L5, L5, L5.ROM 2: Forward elevates 150, 150, 150 degrees; he abducts to 90, 90, 90 degrees; he externally rotates 40, 40, 40 degrees; and internally rotates to about L5, L5, L5.ROM 3: Forward elevates 150, 150, 150 degrees; he abducts to 90, 90, 90 degrees; he externally rotates 40, 40, 40 degrees; and internally rotates to about L5, L5, L5.Contralateral ROM: He has had some problems with his left shoulder of late, so I do not have a good left shoulder to compare to; so I will just compare to what is considered normal.SLU: 40 %Total Scheduled Loss of Use: 40 % PLANTom and I discussed his shoulder. The MRI is really looking pretty good. I do not see anything that I would deem a surgical issue. My recommendation for him at this point, would be to do a loss of use exam, I think he has achieved maximal medical improvement. He has had cortisone, I do not see anything else really helping him. I will let him continue to work with his light duty, temporarily 75% restricted fashion. I thi nk that is probably going to be a permanent restriction. No lifting greater than 10 pounds. Based off the [place] workers' compensation guidelines, page 31 table 5.4 A, his range of motion deficits fall in the moderate category; giving him a 40% loss of use to the shoulder and I will otherwise see him back as needed. He agrees. He will continue to treat himself for pain with Tylenol. Work / School NoteThe incident described by the patient is a competent medical cause of this injury. The patient's complaints are consistent with the history of the injury/illness. The patient's history of the injury/illness is consistent with my objective findings. The percentage of temporary impairment is 75%. The patient is working at this time. Scribed by Scott Hodges on 02/04/2020 at 10:44 PM for Celina Forman Signatures Electronically signed by : Scott Hodges MA; Feb 04 2020 10:44PM EST (Author) Electronically signed by : Celina Forman M.D.; Feb 05 2020 7:34AM EST Name Value Range Interpretation Code Description Data Areli rce(s) Supporting Document(s) ID Date Data Source [id number] 02/03/2020 10:45:00 AM EDT [facility] PATIENT MR#: [id number] NAME: Derik Ponce DATE OF : 4REFERRING PHYSICIAN: Celina Barth DATE: 02/01/2020EXAM: RIGHT SHOULDER MRI SCANINDICATION: Pain. Arthroscopic surgery March 07, 2019 for rotator cuff tearand decompression..PRIOR EXAM: March 15, 2019 radiographs. June 16, 2018 MRITECHNIQUE: Following 3 plane localizer, oblique coronal, oblique sagittal and axial imaging performed utilizing various pulse sequences.FINDINGS:Shoulder Alignment: NormalFluid:Subacromial/subdeltoid bursa: Mild focal increase fluid accumulation extendinginto the AC joint.Baljinder ohumeral: Normal volumeLong of the biceps brachii tendon sheath: Normal volumeAcromial Arch:Shape: Post acromioplasty. Type IISubacromial spur: AbsentAcromiohumeral distance: 12 mmLateral/Anterior downsloping: AbsentAcromioclavicular joint: Small joint effusion communicating withsubacromial/subdeltoid bursa. No os acromiale.Rotator Cuff:Supraspinatus: NormalInfraspinatus: Small footprint insertional tear measuring 10 mm anterior toposterior by 6 mm mediolateral. Mild tendinosis. Mild fraying of the articularsurface. Subscapularis: NormalRotator Interval and long of the biceps brachii tendon:Rotator Interval: Normal retro-coracoid fat. Normal coracohumeral ligament.Biceps-labral anchor: NormalHorizontal portion: NormalGenu: Mild tendinosisVertical portion: NormalGlenohumeral joint:Labrum: Gr ossly normal anterior and posterior labrum and superior labrum on thisnonarthrographic studyGlenohumeral ligaments: Grossly normalGlenohumeral cartilage: Grossly normalBones: Greater tuberosity surgical fastener. Normal marrow sick tipcharacteristics of the proximal humerus. No Hill-Sachs deformity. Normal shapeof the glenoid. No glenoid rim fracture.Muscle: Mild supraspinatus muscle atrophy.IMPRESSION: 1. Small footprint insertional tear infraspinatus. Infraspinatus mildtendinosis. Mild fraying articular surface infraspinatus.2. Mild supraspinatus muscle atrophy3. Mild tendinosis involving the genu of the long head of biceps tendon4. Focal subacromial/deltoid bursitis with fluid dissecting into the AC joint.Read by: Morris GomezTranscribed by: Morris GomezTranscribed Date: 02/03/2020 10:45:53 AMElectronically signed by: Morris GomezDate signed: 02/03/2020 10:46:17 AM Name Value Range Interpretation Code Description Data Areli rce(s) Supporting Document(s) ID Date Data Source [id number] 01/08/2020 07:40:29 AM EDT [facility] Derik Boss: 4Provider: Celina Forman: 01/07/2020 History of Present IllnessCHIEF COMPLAINTFollow-up of right shoulder pain.HISTORY OF PRESENT ILLNESSThe patient is a 64-year-old male who is here for follow-up of right shoulder pain. He had injection at his last visit, he states it made his pain worse. He is having increased stiffness. There is a dull pain but it can be sharp depending on what he is doing; sometimes 4/10 and sometimes 5/10. He is about 10 months status post from a right shoulder one anchor cuff repair with decompression, that was a surgery done on 03/07/2019 due to a work injury on 12/24/2017. He finished physical therapy. I saw him in early 10/2019 and that is when we gave him that cortisone shot again. He had a very significantly worn tendon just continues to have pain. Reviewing his arthroscopic pectoralis tendon was gwen to [place] cheese with multiple holes. He states, lately he feels that he has had no effect from his surgery. He locates most of his sharp pain, stiffness and soreness in the anterior aspect of the shoulder. He takes 3 Extra Strength Tylenol for any breakthrough pain, which helps his pain. No numbness or tingling.The patient is still working and is on light duty. AssessmentASSESSMENTRight shoulder continued pain, status post rotator cuff repair with decompression, work related injury. Plan MRI (SOS) WC Referral Diagnostic Diagnostic Status: Hold For - WC Scheduling (SOS) Requested for: [id number] Ordered;For: Right shoulder pain; Ordered By: Celina Forman Performed: Due: [id number]; Last Updated By: Eitan Gallegos; 01/07/2020 4:31:11 PMPatient will follow up with: : Raphael Junior Ordered Contrast : 01: without gadoLaterality: : Right Work Note WC (SOS) Treatment Treatment Status: Complete Done: [id number] Ordered;For: Health Maintenance; Ordered By: Celina Forman Performed: Due: [id number]; Last Updated By: Michelle Recio; 01/07/2020 1:34:50 PMRestrictions : Waist level work, no l ifting > 10lbs until further evaluationCondition Due To Work Related Injury Of: : right shoulderWorks Status : Light DutyNext Appt : after MRISeen Today for Evaluation and Treatment : The patient was seen today in the office for evaluation and treatment. [facility] and I discussed his shoulders. He is status post 10 months, did therapy, had the surgery, even had cortisone and still is hurting. At this point my recommendation would be a new MRI of this right shoulder. I request that from workers' compensation. He will continue to work light duty, temporary 75% restriction. Working primarily waist level, no lifting greater than 10 pounds and I will see him back after the MRI is done. The patient agrees with this plan. Work / School NoteThe incident described by the patient is a competent medical cause of this injury. The patient's complaints are consistent with the history of the injury/illness. The patient's history of the injury/illness is consistent with my objective findings. The percentage of temporary impairment is 75%. The patient is working at this time. Scribed by Scott Hodges on 01/08/2020 at 12:16 AM for Celina Forman Signatures Electronically signed by : Scott Hodges MA; Jan 08 2020 12:16AM EST (Author) Electronically signed by : Celina Forman M.D.; Jan 08 2020 7:40AM EST Name Value Range Interpretation Code Description Data Areli rce(s) Supporting Document(s) ID Date Data Source [id number] 10/29/2019 01:38:44 PM EDT [facility]: Derik HilarioB: 4Provider: Celina Forman: 10/29/2019 History of Present [id number] complaining of left shoulder pain. He is 8 months from a right shoulder rotator cuff repair decompression. 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 He still gets 3-6 out of 10 pain throughout the day. Dull ache location lateral deltoid. He takes meloxicam and Tylenol for the pain. He is working he is just restricted to no lifting greater than 10 pounds and doing waist level work. AssessmentDiagnosis: Right shoulder pain status post work-related injury and surgery. PlanPlan: I discussed the surgery again with the patient. He had a severely worn tendon. The repair came out well but I do think he still getting rotator cuff pain. I recommend a subacromial cortisone injection today. I will allow him to work still no lifting greater than 10 pounds and waist work only. He agrees with that plan. I will see him back in December for his loss of use exam.I advised the patient that steroid injections are frequently used to provide relief from musculoskeletal pain and to aid in the diagnosis of musculoskeletal problems. This injection offers a variety of benefits and various potential risks associated with the medication administered during the injection. I informed the patient that alternatives to this injection include no treatment, use of rehabilitation and exercise, use of a different medication (oral and injectable), and surgical intervention, when appropriate. I advised the patient that the risks associated with this injection include: an allergic reaction to the medication, pain at the injection site, possible infection of the injection site, facial flushing and skin changes, temporary increase in blood sugar, tendon, muscle or nerve injury, avascular necrosis, and that there may actually not be a beneficial effect at all. Having discussed benefits, alternatives, and potential risks to the injection, the patient elected to proceed with the proced ure.Procedure Note: Indications: Right shoulder painProcedure: Right shoulder subacromial cortisone injection Description: Under sterile conditions, 6 mL of 1% lidocaine, 80 mg of Depo-Medrol were injected in right shoulder without complication. The patient tolerated the procedure well. There was no injectable waste. Work / School NoteThe incident described by the patient is a competent medical cause of this injury. The patient's complaints are consistent with the history of the injury/illness. The patient's history of the injury/illness is consistent with my objective findings. The percentage of temporary impairment is 75%. The patient is working at this time. Signatures Electronically signed by : Celina Forman M.D.; Oct 29 2019 1:38PM EST (Author) Name Value Range Interpretation Code Description Data Areli longe(s) Supporting Document(s) ID Date Data Source [id number] 08/20/2019 09:59:27 AM EDT [facility] Derik Boss: 4Provider: Celina Forman: 08/20/2019 History of Present [id number]-yow complaining of right shoulder pain. 5 months from a right shoulder rotator cuff repair decompression. Date of surgery 03/07/2019. Worker's Comp. case. Currently not working. Currently doing physical therapy. Still has pain with reaching 6 out of 10. The extreme pain he had before the surgery is gone. Works at [employer]. Assessment 1. Right shoulder pain (719.41) (M25.511) PlanPlan: Continue physical therapy as it's medically necessary to improve range of motion and strength. He is capable of working light duty. Waist level work no lifting greater than 10 pounds. Okay to do repetitive waist level work. He should minimize any work above waist level and shoulder height. I will recheck him in 2-3 months. Work / School NoteThe incident described by the patient is a competent medical cause of this injury. The patient's complaints are consistent with the history of the injury/illness. The patient's history of the injury/illness is consistent with my objective findings. The percentage of temporary impairment is 75%. The patient is working at this time. Signatures Electronically signed by : Celina Forman M.D.; Aug 20 2019 9:59AM EST (Author) Name Value Range Interpretation Code Description Data Areli machado(s) Supporting Document(s) ID Date Data Source [id number] 07/24/2019 07:40:48 AM EDT [facility] Derik Boss: 4Provider: Celina Forman: 06/25/2019 Assessment 1. Right shoulder pain (719.41) (M25.511) PlanChief Complaint: Follow-up right shoulder. History: The patient is a 64-year-old male who presents to the clinic for follow-up evaluation 3 months status post right shoulder 1 anchor rotator cuff repair and decompression. His rotator cuff was gwen to swish cheese with some stitches and an anchor. The patient notes that his pain has increased 2 weeks ago since his physical therapist increased his weights. He states that he denies feeling a pop at any time and notes that he was doing well before increasing his therapy exercises. The patient adds that he was worried that he may have re-injured himself. He complains of very sharp pain. The patient states that he has severe pain with stretching after waking up in the morning. He adds that he had pain with reaching over a short distance to get something in the refrigerator last night, 06/24/2019. The patient states that he used to sleep on his right side but cannot do that anymore as he cannot elevate his shoulder for more than 10 minutes. He notes that he [place] and that the therapist was impressed with his progress. However, the patient adds that the therapist states that he still has a long recovery ahead of him. He states that he is employed by [employer].Exam: The patient appears well developed, well nourished and in no acute distress. The patient's body habitus is obese. Patient is oriented to person, place and time. The patient's mood is appropriate to situation. The patient's coordination is normal. The patient uses no assistive device. The patient's gait is normal. Height is 5'10". Weight is 263 lbs. Respirations are 17. Radial pulse is 2+. No rashes of the skin. Examination of the right shoulder shows active forward elevation to approximately 150 degrees. He has supple passive motion. The patient has a pulling sensation with motion. He has good 5 out of 5 cuff strength. The patient does not have a Hawkin and Neer sign. There is no deformity or bruising. He has no tenderness over the clavicle or anteriorly. Imaging: None. Diagnosis:1.Three months status post right shoulder 1 anchor rotator cuff repair and decompression with some inflammation. Plan: The patient and I discussed his right shoulder. We discussed that recovery may take 3-6 months and that he may be doing well by 08/2019. I do not see anything concerning. We do not need a new right shoulder MRI at this point as he recently underwent surgery. His shoulder is still in the process of healing. I am going to watch the shoulder for now and let pain guide his therapy. He will back down on some of the painful exercises. He can use ice, Tylenol, and anti-inflammatories, before increasing his physical therapy activities again. We will recheck him in 2 months. We can consider a right shoulder MRI if he is still in pain at that point, but I suspect that he will be fine by then. The patient agrees with this plan. Work / School NoteThe incident described by the patient is a competent medical cause of this injury. The patient's complaints are consistent with the history of the injury/illness. The patient's history of the injury/illness is consistent with my objective findings. The percentage of temporary impairment is 67%. The patient is not working at this time. No lifting greater than 15 lbs with the affected arm. Repetitive or overhead work 1-2 hrs in an 8 hour day. Scribed by Rosana Mcnamara on 06/25/2019 at 04:47 PM for Celina Forman Addendum There is a correc tion that at this time I am going to keep Tai 100% out of work at a temporary 100% disabled fashion until we see him back on 08/20/2019. I am amending the note and his restrictions from 67% to 100% due to the pain and dysfunction that Derik had in his shoulder over the last 2 weeks. It has been a sharp pain. He has had some severe pain with stretching after waking. He has a lot of pain with reaching the shoulder. He had some difficulties with everyday life activities, such as getting dressed. Because of that pain and because of the worsening over the last 2 weeks, I am going to amend it, again, to put him at 100% disabled. Signatures Electronically signed by : Celina Forman M.D.; Jul 02 2019 1:04PM EST (Author) Electronically signed by : Celina Forman M.D.; Jul 02 2019 2:12PM EST (Author) Electronically signed by : Rosana Mcnamara MA; Jul 06 2019 11:29AM EST (Author) Electronically signed by : Celina Forman M.D.; Jul 09 2019 9:16AM EST Electronically signed by : Rosana Mcnamara MA; Jul 23 2019 2:09PM EST (Author) Electronically signed by : Celina Forman M.D.; Jul 24 2019 7:40AM EST Name Value Range Interpretation Code Description Data Areli rce(s) Supporting Document(s) ID Date Data Source [id number] 06/20/2019 07:54:08 AM EST [facility] Derik Boss: 4Provider: Grupo Hall: 05/14/2019 History of Present IllnessPatient is progressing along well. He admits to some sharp stabbing pains and some stiffness in the shoulder, but this is occasional. He continues outpatient physical therapy. Assessment 1. Right shoulder pain (719.41) (M25.511)Status post right shoulder suture anchor times one rotator cuff repair and decompression on 03/07/19Plan: Patient is progressing along well, he does continue outpatient physical therapy 1 or 2 in [place]. Start progressing with strengthening. Using remain out of work temporary total disability, his job does not allow light duty and at this point he is unable to do any lifting. She was recently hospitalized for kidney stones, he was given compression stockings were in the hospital and he states that the swelling to the legs bilaterally has resolved. He'll follow back up in 6 weeks for reevaluation. PlanPlan, Assessment and Recommendation(s) Schedule appointment: in 4-6 weeks. The nature of the diagnosis and various treatment alternatives were discussed today, including invasive, operative, and non- operative options. The risks, benefits, and rehab requirements of each were reviewed. The patient seems to understand the recommendation(s) and would like to proceed with plan. Work / School NoteThe incident described by the patient is a competent medical cause of this injury. The patient's complaints are consistent with the history of the injury/illness. The patient's history of the injury/illness is consistent with my objective findings. The percentage of temporary impairment is 100%. The patient is not working at this time. DisclaimersThis document was dictated and electronically signed using [employer] software. A reasonable attempt at proof reading has been made to minimize errors. Please call with any questions. Signatures Electronically signed by : Kira Hall PA-C; May 14 2019 10:36AM EST (Author) Electronically signed by : Celina Forman M.D.; May 15 2019 11:22AM EST Name Value Range Interpretation Code Description Data Areli rce(s) Supporting Document(s) ID Date Data Source [id number] 04/12/2019 02:58:45 PM EST [facility] PET W CT IMAGING SKULL TO THIGH [id number] AL RESULTInterpreted by:Suma Murray MDHISTORY: 63-year-old man with history of solitary lung nodule.TECHNIQUE: One hour following the intravenous injection of 12.4 mCi of F-18 labeled FDG, combined PET/CT imaging was obtained from the top of skull to the mid femurs. Blood glucose level at time of injection was 82 mg/dL. No comparison imaging is available, however, comparison is made to an outside CT thorax report dated December 28, 2018.FINDINGS: Head and neck: There is no focal abnormal metabolic activity the brain, however, an MR is more sensitive for detection of most brain lesions. There is no cervical lymphadenopathy.Thorax: Focal increased activity is seen in the medial left lung at the bifurcation of the left mainstem bronchus, SUV max of 5.7. On this low resolution CT without contrast, it may represent vascular activity, lymph node, or lung nodule. The lung nodule described on outside CT report the base of the right lung is not seen on this s tudy. No other FDG avid lung nodules are seen. There is no mediastinal or axillary lymphadenopathy.Abdomen and pelvis: Hepatic steatosis is present. Intense activity throughout the colon is likely related to metformin, which obscures detailed evaluation of the bowel. Lymphadenopathy is not identified. There is mild prostatomegaly seen.Mild diffuse bone marrow activity is noted which can be seen in anemia or medication effect.IMPRESSION:1. Previously described right lung base opacity is not seen on this study, which may reflect the low resolution of the nondiagnostic CT or decreased size of the lesion. Follow-up with diagnostic CT thorax is suggested.2. Focal activity in the medial left lung as described above is of uncertain etiology and attention on follow- up CT thorax is advised.This document has been electronically signed by Suma Murray MD on 04/12/2019 2:56 PM Name Value Range Interpretation Code Description Data Areli rce(s) Supporting Document(s) Procedure Vital Signs ID Date Data Source UNK Name Value Range Interpretation Code Description Data Source(s) Diastolic blood pressure 94 mm[Hg] 94 mm[Hg] eCW1 ([facility]) Systolic blood pressure 172 mm[Hg] 172 mm[Hg] e CW1 ([facility]) Body temperature 95.6 [degF] 95.6 [degF] eCW1 ( [facility]) Respiratory rate 18 /min 18 /min eCW1 ([facility]) Heart rate 96 /min 96 /min eCW1 ([facility]) Body mass index (BMI) [Ratio] 36.58 kg/m2 36.58 kg/m2 eCW1 ([facility]) Body height 70 [in_us] 70 [in_us] eCW1 ([facility]) Body weight Measured 255 [lb_av] 255 [lb_av] eC W1 ([facility]) Diastolic blood pressure 72 mm[Hg] 72 mm[Hg] eCW1 ([facility]) Systolic blood pressure 128 mm[Hg] 128 mm[Hg] e CW1 ([facility]) Body temperature 97.7 [degF] 97.7 [degF] eCW1 ( [facility]) Respiratory rate 18 /min 18 /min eCW1 ([facility]) Heart rate 88 /min 88 /min eCW1 ([facility]) Body mass index (BMI) [Ratio] 37.47 kg/m2 37.47 kg/m2 eCW1 ([facility]) Body height 70 [in_us] 70 [in_us] eCW1 ([facility]) Body weight Measured 261.2 [lb_av] 261.2 [lb_av ] eCW1 ([facility]) Patient Treatment Plan of Care Planned Activity Planned Date Details Description Data Source (s) Tamsulosin hydrochloride 0.4 MG Oral Capsule 05/21/2019 12:00:00 AM EST eCW1 ([facility])
[2020-06-10] MEDS ORDERED: KETOROLAC 30 MG/ML 1ML VIAL IV ONE (11:00)
[2020-06-10 11:09] LABS: BASO # 0.2 10^3/uL (0.0-0.2); BASO % 0.9 % (0.0-1.0); EOS # 0.2 10^3/uL (0.0-0.5); EOS % 1.2 % (0.0-3.0); HEMATOCRIT 45.9 % (42.0-52.0); HEMOGLOBIN 14.8 g/dl (13.5-17.5); LYMPH # 1.8 10^3/uL (1.5-5.0); LYMPH % 10.2 % (24.0-44.0); MEAN CORPUSCULAR HEMOGLOBIN 26.5 pg (27.0-33.0); MEAN CORPUSCULAR HGB CONC 32.2 g/dl (32.0-36.5); MEAN CORPUSCULAR VOLUME 82.3 fl (80.0-96.0); MONO # 1.1 10^3/uL (0.0-0.8); MONO % 6.2 % (2.0-8.0); NEUTROPHILS # 13.6 10^3/uL (1.5-8.5); NEUTROPHILS % 78.7 % (36.0-66.0); PLATELET COUNT, AUTOMATED 211 10^3/uL (150-450); RED BLOOD COUNT 5.58 10^6/uL (4.30-6.10); WHITE BLOOD COUNT 17.3 10^3/uL (4.0-10.0)
--- NOTE | 2020-06-10 11:17 | REP ---
INDICATION: left flank pain COMPARISON: 06/06/2019 TECHNIQUE: Axial noncontrast images from the lung bases to the pubic symphysis with coronal and sagittal reformations. This CT examination was performed using the following dose reduction techniques: Automated exposure control, adjustment of mA and/or kv according to the patient's size, and use of iterative reconstruction technique. FINDINGS: Lung bases demonstrate chronic emphysematous changes and lingular fibroatelectatic change. Kidneys demonstrate mild symmetric perinephric stranding without hydronephrosis or nephroureterolithiasis. Small rounded left renal isodense lesion may represent complex cysts. Hepatomegaly and hepatosteatosis noted without focal hepatic lesion. Spleen, pancreas, and bilateral adrenal glands are normal. Evidence for prior cholecystectomy. The enteric system is without obstruction or acute inflammatory process. Normal terminal ileum and appendix identified in the right lower quadrant. Diverticulosis noted without acute diverticulitis. Pelvis demonstrates mild prostatomegaly and relatively normal appearance of the bladder. No ascites. No free air. No adenopathy. Abdominal aorta without aneurysm. Musculoskeletal structures intact. IMPRESSION: 1. Hepatomegaly and hepatosteatosis. 2. Chronic appearing renal changes may be followed by ultrasound if necessary. 3. Diverticulosis without acute diverticulitis. 4. Prostatomegaly. 5. No acute abdominopelvic pathology appreciated. <Electronically signed by Morris Bourgeois > 06/10/20 1851
[2020-06-10] MEDS ORDERED: NS 1,000 ML IV ONE (11:30)
--- OUTSIDE RECORDS SUMMARY | 2020-06-10 11:42 | CCD ---
Author Author [facility] Organization [facility] Address Unknown Phone Unavailable Care Team Providers Care Building Supervisor Name Role Phone Villa, C Jovanna PA [...] Panchito WEN Unavailable Unavailable Fish, B Panchito EWN Unavailable Unavailable Fish, B Panchito WEN Unavailable [...] B Panchito WEN Unavailable Unavailable Fish, B aPnchito WEN Unavailable Unavailable Fish, B Panchito WEN [...] Unavailable Rafael, A Kira PA Unavailable Unavailable Whiting, A Kira PA Unavailable Unavailable Whiting, A Kira PA Unavailable Unavailable Whiting, A Kira PA Unavailable Unavailable Whiting, A Kira PA Unavailable Unavailable Whiting, A Kira PA Unavailable Unavailable Rafael, A Kira PA Unavailable Unavailable Rafael, A Kira PA Unavailable Unavailable Rafael, A Kira PA Unavailable Unavailable Rafael, A Kira PA Unavailable Unavailable Rafael, A Kira PA Unavailable Unavailable Whiting, A Kira PA Unavailable Unavailable Arfael, A Kira PA Unavailable Unavailable Whiting, A Kira PA Unavailable Unavailable Rafael, A Kira PA Unavailable Unavailable Rafael, A Kira PA Unavailable Unavailable Whiting, A Kira PA Unavailable Unavailable Rafael, A Kira PA Unavailable Unavailable Whiting, A Kira PA Unavailable Unavailable Whiting, A Kira PA Unavailable Unavailable Whiting, A Kira PA Unavailable Unavailable Rafael, A Kira PA Unavailable Unavailable Rafael, A Kira PA Unavailable Unavailable Rafael, A Kira PA Unavailable Unavailable Rafael, A Kira PA Unavailable Unavailable Whiting, A Kira PA Unavailable Unavailable Rafael, A [...] is protected by Article 27-F of the [facility] Public Health law. If you continue you may have access to information: Regarding HIV / AIDS; Provided by facilities licensed or operated by the [facility] Office of Mental Health; or Provided by the [facility] Office for People With Developmental Disabilities. If such information is present, then the following [facility] mandated warning applies: This information has been [...] Description Data Source(s) Unknown Male Problem MEDENT ([facility] Unknown Male Problem MEDENT ([facility]) Unknown Female Problem MEDENT ([facility]) Encounters Encounter Providers Location Date Indications Data Source(s ) Outpatient Attender: Celina Forman MDReferrer: Celina Forman MD 02/05/2020 07:34:54 AM EDT [facility] Recurring Patient Attender: López Forman MDReferrer: López Forman MD 01/28/2020 02:19:41 PM EDT [facility] Outpatient Attender: Celina Forman MDReferrer: Celina Forman MD 01/08/2020 07:40:29 AM EDT [facility] Recurring Patient Attender: López Forman MDReferrer: López Forman MD 01/07/2020 12:54:04 PM EDT [facility] Outpatient Attender: Celina Forman MDReferrer: Celina Forman MD 10/29/2019 01:38:44 PM EDT [facility] Recurring Patient Attender: López Forman MDReferrer: López Forman MD 10/29/2019 01:09:11 PM EDT [facility] Recurring Patient Attender: López Forman MDReferrer: López Forman MD 10/03/2019 09:18:24 AM EDT [facility] Outpatient Attender: Celina Forman MDReferrer: Celina Forman MD 08/20/2019 09:59:27 AM EDT [facility] Recurring Patient Attender: López Forman MDReferrer: López Forman MD 08/20/2019 09:16:47 AM EDT [facility] Recurring Patient Attender: López Forman MDReferrer: López Froman MD 08/03/2019 09:38:39 AM EDT [facility] Outpatient Attender: Celina Forman MDReferrer: Celina Forman MD 07/02/2019 01:05:01 PM EDT [facility] [address] [place] [phone] 06/27/2019 12:00:00 AM EST eCW1 ([facility]) Recurring Patient Referrer: CARMELITA PRATT 0 11:15:28 AM EST [facility] Outpatient Attender: Kira Hall PAReferrer: Celina Forman MD 06/20/2019 07:54:08 AM EST [facility] Outpatient Referrer: CARMELITA PRATT 06/19/2019 07:43 :00 AM EST [facility] Radiology Imaging [facility] [address] [place], [place] [phone] 06/18/2019 12:00:00 AM EST eCW1 ([facility]) [facility] [address] [place] [phone] 06/11/2019 12:00:00 AM EST eCW1 ([facility]) Outpatient Referrer: CARMELITA PRATT 06/06/2019 02:22 :00 PM EST [facility] Radiology Imaging [facility] [address] [place], [place] [phone] 05/29/2019 12:00:00 AM EST eCW1 ([facility]) Recurring Patient Attender: López Forman MDReferrer: López Forman MD 05/28/2019 11:11:00 AM EST [facility] Recurring Patient Attender: López Forman MDReferrer: López Forman MD 05/28/2019 10:57:14 AM EST [facility] [address] [place] [phone] 05/28/2019 12:00:00 AM EST eCW1 ([facility]) [facility] [address] [place] [phone] 05/21/2019 12:00:00 AM EST eCW1 ([facility]) Outpatient Attender: Panchito Zelaya MD Physical Therapy 05/18/2019 0 9:15:00 AM EST MEDENT ([facility]) Outpatient Referrer: CARMELITA PRATT 05/18/2019 06:17 :00 AM EST [facility] Radiology Imaging Outpatient Referrer: CARMELITA PRATT 05/03/2019 12:10 :00 PM EST [facility] Imaging Recurring Patient Attender: López BEATYTeferrer: López Forman MD 04/13/2019 12:30:47 PM EST [facility] Outpatient Referrer: Jovanna PRATT 04/12/2019 12 :00:00 AM EST Solitary pulmonary nodule [facility] Solitary pulmonary nodule Medications Medication Brand Name Start Date Product Form Dose Route Admi nistrative Instructions Pharmacy Instructions Status Indications Reaction Description Data Source(s) 500 mg 04/30/2020 12:00:00 AM EST tablet 20 TAKE ONE TABLET BY MOUTH TWICE A DAY FOR 10 DAYS TAKE ONE TABLET BY MOUTH TWICE A DAY FOR 10 DAYS SOLD: 04/30/2020 [facility] Nystatin 308468 UNT/ML Topical Cream 100,000 unit/gram NYSTA TIN [...] ONE TABLET BY MOUTH TWICE A DAY [facility] SOLD: 02/21/2020 [facility] Metformin hydrochloride 1000 MG Oral Tablet 1,000 mg METFORM IN HCL 02/19/2020 12:00:00 AM EDT tablet 180 TAKE ONE TABLET BY MOUTH TWICE A DAY BEFORE BREAKFAST AND DINNER TAKE ONE TABLET BY MOUTH TWICE A DAY [facility] SOLD: 05/24/2020 Pankaj [...] 12:00:00 AM EST suspended 1 capsule eCW1 ([facility]) Tamsulosin hydrochloride 0.4 MG Oral Capsule Tamsulosi n HCl 0.4 MG Tamsulosin HCl 0.4 MG 05/21/2019 12:00:00 AM EST active 1 capsule eCW1 ([facility]) 500 mg 05/05/2019 12:00:00 AM EST tablet [...] type / Coverage type Policy ID Covered constitution party ID Covered constitution party's relationship to huerta Policy [place] Plan Information [facility] FEDERAL EMPLOYEE PROGRAM [id number] SP [id number] 'S ADMINISTRATION [id number] SP [id number] [employer] [place] CCN [id number] SP [id number] BC FEDERAL EMPLOYEE PROGRAM [id number] SP [id number] [employer] [place] O [id number] S [id number] O [id number] S [id number] [place] FED[place]AL B [id number] S [id number] [facility] FEDERAL EMPLOYEE PROGRAM [id number] SP [id number] MEDICARE [id number] SP [id number] MEDICARE C [id number] S [id number] [id number] [facility] [employer] [id number] SP [id number] OTHER B [id number] Self [id number] Awaiting Information B pending SELF pending [employer] Workers Compensation [id number] Self [id number] BS [place] Medigap Part B [id number] Self [id number] [facility] (WC) Workers Compensation [id number] Self [id number] [employer]) Workers Compensation [id number] Self [id number] BS [place] [employer] Part B [id number] Self [id number] [employer]) Workers Compensation [id number] Self [id number] BS [place] [employer] Part B [id number] Self [id number] [employer]) Workers Compensation [id number] Self [id number] BS [place] [employer] Part B [id number] Self [id number] [employer]) Workers Compensation [id number] Self [id number] BS [place] Med[employer] Part B [id number] Self [id number] [employer]) Workers Compensation [id number] Self [id number] BS [place] Medigap Part B [id number] Self [id number] MEDICARE [id number] SP [id number] [facility] Federal Plan Commercial [id number] Self [id number] [facility] [id number] SP [id number] [employer] [facility] Medigap Part B [id number] Self [id number] [facility] Commercial [id number] Self [id number] [employer] ([place]) Workers Compensation [id number] Self [id number] BS [place] Commercial [id number] Self [id number] [employer]) Workers Compensation [id number] Self [id number] BS [place] Commercial [id number] Self [id number] [facility] FEDERAL EMPLOYEE PROGRAM [id number] SP [id number] [facility] Federal Plan Commercial [id number] Self [id number] [employer] [facility] FEDERAL [id number] SP [id number] [facility] Federal Plan Commercial [id number] Self [id number] [facility] Federal Plan Medigap Part B Self HEALTH NET VA CHOICE [id number] SP [id number] HEALTH NET VA CHOICE UNAVAILABLE SP UNAVAILABLE [employer]. [id number] SP [id number] [facility] Ins Workers Compensation Self [facility] O [id number] S [id number] [employer]. 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 05/29/2019 1 2:00:00 AM EST eCW1 ([facility]) N20.0 [id number] Kidney stone on left side Problem 05/29/2019 12:00:00 AM EST eCW1 ([facility]) N13.8 Obstructive uropathy Other obstructive and reflux urop athy Problem 05/21/2019 12:00:00 AM EST eCW1 ([facility]) N40.1 Lower urinary tract symptoms due to valerie gn prostatic hypertrophy Benign prostatic hyperplasia with lower urinary tract symptoms Problem 05/21/2019 12:00:00 AM EST eCW1 ([facility]) R91.1 Solitary pulmonary nodule Solitary pulmonary nodule Di agnosis 04/12/2019 11:39:01 AM [facility] Surgeries/Procedures Procedure Description Date Indications Data Source(s) ARTHROCENTESIS ASPIR&/INJECTION MAJOR JT/BURSA 020 12:00:00 AM IMAN STAN ([facility]) Results ID Date Data Source [id number] 02/05/2020 07:34:54 AM EDT [facility] Derik SanchezB: 4Provider: Celina Forman: 02/04/2020 Reason For VisitThmatrha Sanchez is here today for right shoulder. [...] significantly worn a tendon, kind of a [place] cheese with multiple holes. Results/Data OtherHe had [...] greater than 10 pounds. Based off the [place] workers' compensation guidelines, page 31 table 5.4 [...] rce(s) Supporting Document(s) ID Date Data Source [id number] 02/03/2020 10:45:00 AM EDT [facility] PATIENT MR#: [id number] NAME: Derik Ponce DATE OF : 4REFERRING [...] rce(s) Supporting Document(s) ID Date Data Source [id number] 01/08/2020 07:40:29 AM EDT [facility] Derik Boss: 4Provider: Celina [...] his arthroscopic pectoralis tendon was gwen to montenegrin cheese with multiple holes. He states, lately [...] For - WC Scheduling (SOS) Requested for: [id number] Ordered;For: Right shoulder pain; Ordered By: Celina Forman Performed: Due: [id number]; Last Updated By: Eitan Gallegos; 01/07/2020 4:31:11 PMPatient will follow up with: : Raphael Junior Ordered Contrast : 01: without gadoLaterality: : Right Work Note WC (SOS) Treatment Treatment Status: Complete Done: [id number] Ordered;For: Health Maintenance; Ordered By: Celina Forman Performed: Due: [id number]; Last Updated By: Michelle Recio; 01/07/2020 1:34:50 PMRestrictions : Waist level work, no l ifting > 10lbs until further evaluationCondition Due To Work Related Injury Of: : right shoulderWorks Status : Light DutyNext Appt : after MRISeen Today for Evaluation and Treatment : The patient was seen today in the office for evaluation and treatment. [facility] and I discussed his shoulders. He [...] rce(s) Supporting Document(s) ID Date Data Source [id number] 10/29/2019 01:38:44 PM EDT [facility]: Derik HilarioB: 4Provider: Celina Forman: 10/29/2019 History of Present [id number] complaining of left shoulder pain. He is [...] longe(s) Supporting Document(s) ID Date Data Source [id number] 08/20/2019 09:59:27 AM EDT [facility] Derik Boss: 4Provider: Celina Forman: 08/20/2019 History of Present [id number] complaining of right shoulder pain. 5 months [...] machado(s) Supporting Document(s) ID Date Data Source [id number] 07/24/2019 07:40:48 AM EDT [facility] Derik Boss: 4Provider: Celina [...] that [place] and that the therapist was impressed with his progress. However, the patient adds that the therapist states that he still has a long recovery ahead of him. He states that he is employed by [employer].Exam: The patient appears well developed, well nourished [...] rce(s) Supporting Document(s) ID Date Data Source [id number] 06/20/2019 07:54:08 AM EST [facility]: Derik Boss: 4Provider: [employer] [...] outpatient physical therapy 1 or 2 in [place]. Start progressing with strengthening. Using remain out [...] document was dictated and electronically signed using [employer] software. A reasonable attempt at proof reading has been made to minimize errors. Please call with any questions. Signatures Electronically signed by : Kira Hall PA-C; May 14 2019 10:36AM EST (Author) Electronically signed by : Celina Forman M.D.; May 15 2019 11:22AM EST Name Value Range Interpretation Code Description Data Areli rce(s) Supporting Document(s) ID Date Data Source [id number] 04/12/2019 02:58:45 PM EST [facility] PET W CT IMAGING SKULL TO THIGH [id number] AL RESULTInterpreted by:Suma Murray MDHISTORY: 63-year-old man [...] blood pressure 94 mm[Hg] 94 mm[Hg] eCW1 ([facility]) Systolic blood pressure 172 mm[Hg] 172 mm[Hg] e CW1 ([facility]) Body temperature 95.6 [degF] 95.6 [degF] eCW1 ( [facility]) Respiratory rate 18 /min 18 /min eCW1 ([facility]) Heart rate 96 /min 96 /min eCW1 ([facility]) Body mass index (BMI) [Ratio] 36.58 kg/m2 36.58 kg/m2 eCW1 ([facility]) Body height 70 [in_us] 70 [in_us] eCW1 ([facility]) Body weight Measured 255 [lb_av] 255 [lb_av] eC W1 ([facility]) Diastolic blood pressure 72 mm[Hg] 72 mm[Hg] eCW1 ([facility]) Systolic blood pressure 128 mm[Hg] 128 mm[Hg] e CW1 ([facility]) Body temperature 97.7 [degF] 97.7 [degF] eCW1 ( [facility]) Respiratory rate 18 /min 18 /min eCW1 ([facility]) Heart rate 88 /min 88 /min eCW1 ([facility]) Body mass index (BMI) [Ratio] 37.47 kg/m2 37.47 kg/m2 eCW1 ([facility]) Body height 70 [in_us] 70 [in_us] eCW1 ([facility]) Body weight Measured 261.2 [lb_av] 261.2 [lb_av ] eCW1 ([facility]) Patient Treatment Plan of Care Planned Activity Planned Date Details Description Data Source (s) Tamsulosin hydrochloride 0.4 MG Oral Capsule 05/21/2019 12:00:00 AM EST eCW1 ([facility])
[2020-06-10 11:45] LABS: ALBUMIN 3.4 GM/DL (3.2-5.2); BILIRUBIN,DIRECT 0.1 MG/DL (0.0-0.2); BILIRUBIN,TOTAL 0.7 MG/DL (0.2-1.0); TOTAL PROTEIN 7.5 GM/DL (6.4-8.2)
[2020-06-10 11:53] LABS: INR 0.98; PROTHROMBIN TIME 13.2 SECONDS (12.5-14.3)
[2020-06-10 11:57] LABS: D-DIMER QUANT < 270 ng/ml (<500)
--- NOTE | 2020-06-10 12:10 | REP ---
INDICATION: Abdominal Pain. COMPARISON: Comparison chest x-ray May 02, 2020. TECHNIQUE: Two views.. FINDINGS: The lungs are well inflated and free of infiltrate. The pleural angles are sharp. The heart size is normal. Pulmonary vasculature is not increased. No significant bony abnormality is seen. There is some pleuroparenchymal scarring again visible along the left heart border and at the left base unchanged from the May 02, 2020 study. IMPRESSION: No active disease.. <Electronically signed by Ac Hutchison > 06/10/20 [id number]
[2020-06-10 13:52] VITALS: BP 160/82
--- NOTE | 2020-06-12 14:14 | ED PDOC ---
Post-Departure Follow-Up radiology report faxed to Kira Hernandez MD Jun 12, 2020 14:14
== END 2020-06-10 13:54 | disposition home or self-care (01) ==
LOC: M ED 10:26
DX: D72.829 Elevated white blood cell count, unspecified (principal); E66.9 Obesity, unspecified; E11.9 Type 2 diabetes mellitus without complications; I10 Essential (primary) hypertension; K21.9 Gastro-esophageal reflux disease without esophagitis; E78.5 Hyperlipidemia, unspecified; J44.9 Chronic obstructive pulmonary disease, unspecified; E03.9 Hypothyroidism, unspecified; Z85.118 Personal history of other malignant neoplasm of bronchus and lung; Z87.442 Personal history of urinary calculi; R16.0 Hepatomegaly, not elsewhere classified; K76.0 Fatty (change of) liver, not elsewhere classified; K57.30 Diverticulosis of large intestine without perforation or abscess without bleeding; N40.0 Benign prostatic hyperplasia without lower urinary tract symptoms; Z79.84 Long term (current) use of oral hypoglycemic drugs; Z79.899 Other long term (current) drug therapy
CPT/HCPCS: 71046; 74176; 80047; 80076; 81001; 82150; 83690; 85025; 85379; 85610; 85730; 96361; 96374; 99284; J1885

== ENCOUNTER 2020-07-21 21:05 | Emergency (ER) | payer OTHER, BC ==
[~2020-07-21] VITALS: Ht 177.8 cm; Wt 119.8 kg
[2020-07-21] MEDS ORDERED: NS 1,000 ML IV ONE (21:35)
[2020-07-21 22:59] LABS: HEMATOCRIT 44.4 % (42.0-52.0); HEMOGLOBIN 14.2 g/dl (13.5-17.5); MEAN CORPUSCULAR HEMOGLOBIN 26.8 pg (27.0-33.0); MEAN CORPUSCULAR VOLUME 83.9 fl (80.0-96.0); PLATELET COUNT, AUTOMATED 222 10^3/uL (150-450); RED BLOOD COUNT 5.29 10^6/uL (4.30-6.10); VENOUS BASE EXCESS -5.6 (-2.0-2.0); VENOUS HCO3 20.3 MEQ/L (23.0-27.0); VENOUS O2 SATURATION 73.8 % (60.0-80.0); VENOUS PARTIAL PRESSURE CO2 41.4 mmHg (38.0-50.0); VENOUS PARTIAL PRESSURE O2 40.8 mmHg (30.0-50.0); VENOUS PH 7.309 UNITS (7.330-7.430); VENOUS STANDARD HCO3 19.4 MEQ/L; VENOUS TOTAL CO2 21.6 MEQ/L (24.0-28.0); WHITE BLOOD COUNT 19.7 10^3/uL (4.0-10.0)
[2020-07-21 23:07] LABS: APPEARANCE, URINE CLEAR (CLEAR); BACTERIA, URINE AUTO NEGATIVE (NEGATIVE); BILIRUBIN, URINE AUTO NEGATIVE (NEGATIVE); BLOOD, URINE BLOOD NEGATIVE (NEGATIVE); COLOR, URINE STRAW (YELLOW); GLUCOSE, URINE (UA) AUTO 3+ mg/dL (NEGATIVE); KETONE, URINE AUTO TRACE mg/dL (NEGATIVE); LEUKOCYTE ESTERASE, URINE AUTO NEGATIVE (NEGATIVE); NITRITE, URINE AUTO NEGATIVE (NEGATIVE); PROTEIN, URINE AUTO NEGATIVE (NEGATIVE); RBC, URINE AUTO 2 /HPF (0-3); SPECIFIC GRAVITY URINE AUTO 1.024 (1.002-1.035); SQUAMOUS EPITHELIAL CELL UR AU 0 /HPF (0-6); UROBILINOGEN, URINE AUTO 0.2 mg/dL (0.0-2.0); WBC, URINE AUTO 0 /HPF (0-3)
[2020-07-22 00:15] LABS: ALBUMIN 3.6 GM/DL (3.2-5.2); BILIRUBIN,TOTAL 0.4 MG/DL (0.2-1.0); CALCIUM LEVEL 8.6 MG/DL (8.8-10.2); CREATININE FOR GFR 1.52 MG/DL (0.70-1.30); GLOMERULAR FILTRATION RATE 48.9 (>49); POTASSIUM SERUM 4.7 MEQ/L (3.5-5.1); TOTAL PROTEIN 7.9 GM/DL (6.4-8.2)
[2020-07-22] MEDS ORDERED: HumuLIN R (REGULAR) INSULIN (NovoLIN R) **100U/ML** PER UNIT SC ONE (00:20)
[2020-07-22 01:35] VITALS: BP 156/72
== END 2020-07-22 01:44 | disposition home or self-care (01) ==
LOC: M ED 21:05
DX: E11.65 Type 2 diabetes mellitus with hyperglycemia (principal); Z85.118 Personal history of other malignant neoplasm of bronchus and lung; Z92.21 Personal history of antineoplastic chemotherapy; Z92.3 Personal history of irradiation; J44.9 Chronic obstructive pulmonary disease, unspecified; K21.9 Gastro-esophageal reflux disease without esophagitis; Z87.891 Personal history of nicotine dependence; Z79.84 Long term (current) use of oral hypoglycemic drugs; Z79.899 Other long term (current) drug therapy

== ENCOUNTER 2020-08-01 11:39 | Emergency (ER) | payer BC, OTHER ==
[~2020-08-01] VITALS: Ht 177.8 cm; Wt 118.5 kg
[2020-08-01] MEDS ORDERED: DEXA4TA (11:56)
[2020-08-01] MEDS ORDERED: NOVOINJ3 (11:56)
[2020-08-01] MEDS ORDERED: POTA10808 PO (11:56)
[2020-08-01 12:34] LABS: HEMATOCRIT 41.7 % (42.0-52.0); HEMOGLOBIN 13.5 g/dl (13.5-17.5); MEAN CORPUSCULAR HEMOGLOBIN 27.3 pg (27.0-33.0); MEAN CORPUSCULAR HGB CONC 32.4 g/dl (32.0-36.5); MEAN CORPUSCULAR VOLUME 84.2 fl (80.0-96.0); PLATELET COUNT, AUTOMATED 152 10^3/uL (150-450); RED BLOOD COUNT 4.95 10^6/uL (4.30-6.10); WHITE BLOOD COUNT 7.6 10^3/uL (4.0-10.0)
[2020-08-01 13:02] LABS: ALBUMIN 3.4 GM/DL (3.2-5.2); ALT/SGPT 27 U/L (12-78); BILIRUBIN,DIRECT 0.2 MG/DL (0.0-0.2); BILIRUBIN,TOTAL 0.6 MG/DL (0.2-1.0); BLOOD UREA NITROGEN 31 MG/DL (7-18); CALCIUM LEVEL 8.8 MG/DL (8.8-10.2); CARBON DIOXIDE LEVEL 27 MEQ/L (21-32); CHLORIDE LEVEL 105 MEQ/L (98-107); CK-MB VALUE MASS 2.3 NG/ML (<3.6); CPK CREATINE PHOSPHOKINASE 66 U/L (39-308); CREATININE FOR GFR 0.97 MG/DL (0.70-1.30); GLOMERULAR FILTRATION RATE > 60.0 (>49); GLUCOSE, FASTING 169 MG/DL (70-100); MB/CK RELATIVE INDEX 3.48 (< OR =4); POTASSIUM SERUM 3.5 MEQ/L (3.5-5.1); SODIUM LEVEL 139 MEQ/L (136-145); TOTAL PROTEIN 6.4 GM/DL (6.4-8.2); TROPONIN I < 0.02 NG/ML (< 0.10)
[2020-08-01 13:11] LABS: ATYPICAL LYMPH 2 % (0-5); LYMPHOCYTES 10 % (16-44); MONOCYTES 1 % (0-5); NEUTROPHILS 87 % (28-66); PLATELET ESTIMATE NORMAL (NORMAL)
--- NOTE | 2020-08-01 13:27 | REP ---
INDICATION: dizziness. COMPARISON: None. TECHNIQUE: Axial CT images with multiplanar reformations. FINDINGS: No acute bleed or acute large vessel territorial infarct. Ventricles, cisterns and sulci are within normal limits. No mass effect or midline shift. No abnormal fluid collections. Paranasal sinuses and mastoid air cells are clear. IMPRESSION: No acute findings. <Electronically signed by Ezekiel Lozoya > 08/01/20 1546
[2020-08-01 14:47] LABS: HEMOGLOBIN A1c 9.6 %
[2020-08-01 15:16] VITALS: BP 134/73
--- NOTE | 2020-08-01 21:12 | ECGEPIP ---
[facility] - ED Test Date: 2020-08-01 Pat Name: DERIK FITZGERALD Department: Room: - Gender: Male Physical Scientist: : 1955 Requested By: Steven Gallegos Order Number: [id number] Reading MD: Steven Tejeda Measurements Intervals [place] Rate: 93 P: 71 NC: 156 QRS: -51 QRSD: 102 T: 59 QT: 354 QTc: 440 Interpretive Statements Normal sinus rhythm Left axis deviation SIMILAR TO 05/02/20 Electronically Signed on 08-01-2020 21:12:18 EDT by Steven Tejeda
== END 2020-08-01 15:17 | disposition home or self-care (01) ==
LOC: M ED 11:39
DX: E11.9 Type 2 diabetes mellitus without complications (principal); C34.90 Malignant neoplasm of unspecified part of unspecified bronchus or lung; I10 Essential (primary) hypertension; K21.9 Gastro-esophageal reflux disease without esophagitis; N40.0 Benign prostatic hyperplasia without lower urinary tract symptoms; J44.9 Chronic obstructive pulmonary disease, unspecified; G47.33 Obstructive sleep apnea (adult) (pediatric); F17.200 Nicotine dependence, unspecified, uncomplicated; Z79.84 Long term (current) use of oral hypoglycemic drugs; Z79.899 Other long term (current) drug therapy

== ENCOUNTER → 2020-12-01 | Outpatient (CLI) | payer OTHER ==
[~2020-12-01] MED LIST changes: +DEXA4TA; +ERGO500029 PO; +LOSA100T45 PO; -LOSA100T50 PO; +NOVOINJ3; +POTA10808 PO; -VITA50005 PO
== END ==
LOC: M PLARAD 07:34
PROVIDERS: ATTEND Student in an Organized Health Care Education/Training Program
DX: C34.12 Malignant neoplasm of upper lobe, left bronchus or lung (principal); Z92.21 Personal history of antineoplastic chemotherapy; Z92.3 Personal history of irradiation; R93.89 Abnormal findings on diagnostic imaging of other specified body structures; K57.30 Diverticulosis of large intestine without perforation or abscess without bleeding
CPT/HCPCS: 78815; A9552

== ENCOUNTER → 2021-08-17 | Outpatient (CLI) | payer OTHER | LOC: M PLARAD 12:45 | PROVIDERS: ATTEND Student in an Organized Health Care Education/Training Program | DX: C34.12 Malignant neoplasm of upper lobe, left bronchus or lung (principal); J43.9 Emphysema, unspecified; I31.3 Pericardial effusion (noninflammatory); I70.0 Atherosclerosis of aorta; I25.10 Atherosclerotic heart disease of native coronary artery without angina pectoris; Z85.828 Personal history of other malignant neoplasm of skin; R16.1 Splenomegaly, not elsewhere classified; Z90.49 Acquired absence of other specified parts of digestive tract; K57.30 Diverticulosis of large intestine without perforation or abscess without bleeding | CPT/HCPCS: 78815; A9552 ==

== ENCOUNTER 2022-01-09 09:31 | Emergency (ER) | payer OTHER ==
[~2022-01-09] VITALS: Ht 177.8 cm; Wt 113.5 kg
[2022-01-09] MEDS ORDERED: FLUT1BLS2 (09:48)
[2022-01-09 10:21] LABS: BASO # 0.2 10^3/uL (0.0-0.2); BASO % 1.4 % (0.0-1.0); EOS # 0.2 10^3/uL (0.0-0.5); EOS % 1.5 % (0.0-3.0); HEMATOCRIT 47.5 % (42.0-52.0); LYMPH # 1.4 10^3/uL (1.5-5.0); LYMPH % 9.6 % (24.0-44.0); MEAN CORPUSCULAR HEMOGLOBIN 25.9 pg (27.0-33.0); MEAN CORPUSCULAR HGB CONC 31.6 g/dl (32.0-36.5); MONO # 1.1 10^3/uL (0.0-0.8); MONO % 7.5 % (2.0-8.0); NEUTROPHILS # 11.1 10^3/uL (1.5-8.5); NEUTROPHILS % 76.3 % (36.0-66.0); PLATELET COUNT, AUTOMATED 191 10^3/uL (150-450); RED BLOOD COUNT 5.79 10^6/uL (4.30-6.10); WHITE BLOOD COUNT 14.5 10^3/uL (4.0-10.0)
[2022-01-09 11:07] LABS: CK-MB VALUE MASS 1.6 NG/ML (<3.6); MB/CK RELATIVE INDEX 2.5 (< OR =4)
[2022-01-09 11:13] LABS: ALBUMIN 3.4 GM/DL (3.2-5.2); ALT/SGPT 21 U/L (12-78); BILIRUBIN,DIRECT 0.2 MG/DL (0.0-0.2); BILIRUBIN,TOTAL 0.6 MG/DL (0.2-1.0); BLOOD UREA NITROGEN 15 MG/DL (7-18); CALCIUM LEVEL 8.7 MG/DL (8.8-10.2); CARBON DIOXIDE LEVEL 25 MEQ/L (21-32); CHLORIDE LEVEL 106 MEQ/L (98-107); CREATININE FOR GFR 1.05 MG/DL (0.70-1.30); GLOMERULAR FILTRATION RATE > 60.0 (>49); GLUCOSE, FASTING 183 MG/DL (70-100); LIPASE 82 U/L (73-393); POTASSIUM SERUM 4.3 MEQ/L (3.5-5.1); SODIUM LEVEL 139 MEQ/L (136-145)
[2022-01-09] MEDS ORDERED: ISOVUE-370 76% 100ML VIAL As Ordered ONE (11:25)
[2022-01-09 12:05] LABS: CK-MB VALUE MASS 1.4 NG/ML (<3.6); MB/CK RELATIVE INDEX 2.69 (< OR =4)
[2022-01-09 13:30] LABS: CK-MB VALUE MASS 1.3 NG/ML (<3.6); MB/CK RELATIVE INDEX 2.71 (< OR =4)
[2022-01-09 13:58] VITALS: BP 137/80
== END 2022-01-09 14:00 | disposition home or self-care (01) ==
LOC: M ED 09:31
DX: R07.9 Chest pain, unspecified (principal); R91.1 Solitary pulmonary nodule; I10 Essential (primary) hypertension; E78.5 Hyperlipidemia, unspecified; J44.9 Chronic obstructive pulmonary disease, unspecified; Z85.118 Personal history of other malignant neoplasm of bronchus and lung; Z92.25 Personal history of immunosuppression therapy; Z92.3 Personal history of irradiation; Q61.5 Medullary cystic kidney; Z87.891 Personal history of nicotine dependence; I44.4 Left anterior fascicular block; Z79.890 Hormone replacement therapy; Z79.84 Long term (current) use of oral hypoglycemic drugs; Z79.899 Other long term (current) drug therapy
CPT/HCPCS: 71045; 71275; 80048; 80076; 82550; 82553; 83690; 84443; 84484; 85025; 93005; 93041; 94760; 99285; Q9967

== ENCOUNTER → 2022-02-15 | Outpatient (CLI) | payer OTHER ==
[~2022-02-15] MED LIST changes: +FLUT1BLS2
== END ==
LOC: M PLARAD 11:39
PROVIDERS: ATTEND Student in an Organized Health Care Education/Training Program
DX: C34.12 Malignant neoplasm of upper lobe, left bronchus or lung (principal); R59.0 Localized enlarged lymph nodes
CPT/HCPCS: 78815; A9552

== ENCOUNTER → 2022-03-15 | Outpatient (CLI) | payer OTHER ==
[~2022-03-15] MED LIST changes: -DOXY-350 PO; +DOXY-444 PO
== END ==
LOC: M PLALAB 15:41
PROVIDERS: ATTEND Ophthalmology Retina Specialist
DX: M31.6 Other giant cell arteritis (principal)

== ENCOUNTER 2022-04-10 16:04 | Inpatient (IN) | payer OTHER ==
[~2022-04-10] VITALS: Ht 177.8 cm; Wt 101.6 kg
[~2022-04-10 16:04] MED LIST changes: -FLUT1BLS2; +FLUT1BLS2 INH; -NOVOINJ3; +NOVOINJ3 SC
[2022-04-10] MEDS ORDERED: NS 250 ML IV ONE (16:35)
[2022-04-10] MEDS: COMBIVENT RESPIMAT 100-20MCG INHALER 4GM INH SCH ×5 (16:53→23:35)
[2022-04-10 17:09] LABS: HEMATOCRIT 44.1 % (42.0-52.0); HEMOGLOBIN 13.8 g/dl (13.5-17.5); MEAN CORPUSCULAR HEMOGLOBIN 25.5 pg (27.0-33.0); MEAN CORPUSCULAR HGB CONC 31.3 g/dl (32.0-36.5); MEAN CORPUSCULAR VOLUME 81.4 fl (80.0-96.0); PLATELET COUNT, AUTOMATED 210 10^3/uL (150-450); RED BLOOD COUNT 5.42 10^6/uL (4.30-6.10); WHITE BLOOD COUNT 19.6 10^3/uL (4.0-10.0)
[2022-04-10 17:25] LABS: EOSINOPHILS 1 % (0-3); LYMPHOCYTES 6 % (16-44); METAMYELOCYTES 1 % (0-0); MONOCYTES 2 % (0-5); MYELOCYTES 2 % (0-0); NEUTROPHILS 85 % (28-66); PLATELET ESTIMATE NORMAL (NORMAL)
[2022-04-10 17:26] LABS: ANISOCYTOSIS 2+
[2022-04-10 17:29] LABS: HYPOCHROMASIA 1+
[2022-04-10 17:41] LABS: LDH LACTATE DEHYDROGENASE 243 U/L (120-246)
[2022-04-10 17:42] LABS: ALBUMIN 3.1 G/DL (3.2-5.2); ALKALINE PHOSPHATASE 119 U/L (46-116); ALT/SGPT 29 U/L (7.0-40); AST/SGOT 12 U/L (<34); BILIRUBIN,TOTAL 0.7 MG/DL (0.3-1.2); BLOOD UREA NITROGEN 20 MG/DL (9-23); CALCIUM LEVEL 8.9 MG/DL (8.3-10.6); CARBON DIOXIDE LEVEL 26 MMOL/L (20-31); CHLORIDE LEVEL 103 MMOL/L (98-107); CREATININE FOR GFR 0.92 MG/DL (0.70-1.30); GLOMERULAR FILTRATION RATE > 60.0 (>49); GLUCOSE, FASTING 186 MG/DL (74-106); POTASSIUM SERUM 3.6 MMOL/L (3.5-5.1); SODIUM LEVEL 138 MMOL/L (136-145); TOTAL PROTEIN 6.8 G/DL (5.7-8.2)
[2022-04-10] MEDS ORDERED: AMLO1TAB24 PO (18:41)
[2022-04-10] MEDS ORDERED: VENTAER INH (18:41)
[2022-04-10] MEDS ORDERED: VERA40TA PO (18:41)
[2022-04-10] MEDS ORDERED: CITA40TA7 PO (18:41)
[2022-04-10] MEDS ORDERED: EZET10TA21 PO (18:41)
[2022-04-10] MEDS ORDERED: JARD1TAB3 PO (18:41)
[2022-04-10] MEDS ORDERED: OXYC10TA12 PO (18:42)
[2022-04-10] MEDS ORDERED: HOME MED LIST COMPLETE! XX SCH (18:45)
[2022-04-10] MEDS ORDERED: oxyCODONE 5MG TAB PO PRN (19:30)
[2022-04-10] MEDS ORDERED: GLUCOSE 4GM CHEW TABLET PO PRN (19:30)
[2022-04-10] MEDS ORDERED: GLUCAGON INJ 1MG VIAL SC PRN (19:30)
[2022-04-10] MEDS ORDERED: DEXTROSE 50% 50 ML SYRINGE IV PRN (19:30)
[2022-04-10] MEDS: SYMBICORT 160/4.5MCG INHALER 6GM INH SCH (19:44)
[2022-04-10] MEDS ORDERED: ACETAMINOPHEN 500 MG TAB PO PRN (19:50)
[2022-04-10 20:07] LABS: INR 1.03; PROTHROMBIN TIME 13.7 SECONDS (12.5-14.5)
[2022-04-10 20:08] LABS: PARTIAL THROMBOPLASTIN TIME 28.1 SECONDS (24.8-34.2)
[2022-04-10 20:11] LABS: D-DIMER QUANT 509.99 ng/ml (<500)
[2022-04-10 20:20] LABS: ALBUMIN 3.3 G/DL (3.2-5.2); BILIRUBIN,DIRECT 0.2 MG/DL (<0.4); BILIRUBIN,TOTAL 0.7 MG/DL (0.3-1.2); C REACTIVE PROTEIN QUANTITATIV 6.4 MG/DL (<1.0); TOTAL PROTEIN 6.9 G/DL (5.7-8.2)
[2022-04-10 20:22] LABS: FERRITIN 219.9 NG/ML (10.5-307.3)
[2022-04-10] MEDS ORDERED: OMEPRAZOLE 20MG CAP PO SCH (21:00)
[2022-04-10] MEDS ORDERED: PANTOPRAZOLE 40MG TAB (PROTONIX) PO SCH (21:00)
[2022-04-10] MEDS ORDERED: LEVOTHYROXINE 25MCG TABLET (0.025MG) PO SCH (21:00)
[2022-04-10] MEDS ORDERED: INSULIN LISPRO (NovoLOG) PER UNIT SC SCH (21:00)
[2022-04-10] MEDS ORDERED: LEVEMIR (INSULIN DETEMIR) 1 UNITS/0.01ML SC SCH (21:00)
[2022-04-10] MEDS: VERAPAMIL 40 MG TAB PO SCH (22:57)
[2022-04-10] MEDS ORDERED: HumuLIN R (REGULAR) INSULIN (NovoLIN R) **100U/ML** PER UNIT IV STA (23:12)
[2022-04-11] MEDS: NYSTATIN 500,000U/5ML SUSP UDC SS SCH ×2 (02:46)
[2022-04-11] MEDS: COMBIVENT RESPIMAT 100-20MCG INHALER 4GM INH SCH ×3 (03:17→20:00)
[2022-04-11] MEDS ORDERED: INSULIN LISPRO (NovoLOG) PER UNIT SC SCH (07:30)
[2022-04-11] MEDS ORDERED: MAGIC MOUTHWASH SUSPENSION BTL SSP SCH (07:30)
[2022-04-11 07:51] LABS: HEMATOCRIT 42.3 % (42.0-52.0); HEMOGLOBIN 13.5 g/dl (13.5-17.5); MEAN CORPUSCULAR HEMOGLOBIN 25.8 pg (27.0-33.0); MEAN CORPUSCULAR HGB CONC 31.9 g/dl (32.0-36.5); MEAN CORPUSCULAR VOLUME 80.9 fl (80.0-96.0); PLATELET COUNT, AUTOMATED 200 10^3/uL (150-450); RED BLOOD COUNT 5.23 10^6/uL (4.30-6.10); WHITE BLOOD COUNT 19.2 10^3/uL (4.0-10.0)
[2022-04-11] MEDS: SYMBICORT 160/4.5MCG INHALER 6GM INH SCH ×2 (08:00→20:00)
[2022-04-11 08:17] LABS: MAGNESIUM LEVEL 1.8 MG/DL (1.8-2.4)
[2022-04-11] MEDS ORDERED: NYST50SS SS (08:18)
[2022-04-11] MEDS ORDERED: PRED20TA PO (08:18)
[2022-04-11] MEDS ORDERED: MAGICMW SSP (08:18)
[2022-04-11 08:23] LABS: BLOOD UREA NITROGEN 21 MG/DL (9-23); CALCIUM LEVEL 8.9 MG/DL (8.3-10.6); CARBON DIOXIDE LEVEL 25 MMOL/L (20-31); CHLORIDE LEVEL 101 MMOL/L (98-107); CREATININE FOR GFR 0.82 MG/DL (0.70-1.30); GLOMERULAR FILTRATION RATE > 60.0 (>49); GLUCOSE, FASTING 231 MG/DL (74-106); POTASSIUM SERUM 4.1 MMOL/L (3.5-5.1); SODIUM LEVEL 136 MMOL/L (136-145)
[2022-04-11 08:25] LABS: ATYPICAL LYMPH 2 % (0-5); LYMPHOCYTES 3 % (16-44); METAMYELOCYTES 1 % (0-0); MONOCYTES 2 % (0-5); MYELOCYTES 3 % (0-0); NEUTROPHILS 88 % (28-66)
[2022-04-11 08:27] LABS: ANISOCYTOSIS 4+; PLATELET ESTIMATE NORMAL (NORMAL); POLYCHROMASIA 1+
[2022-04-11 08:28] LABS: OVALOCYTES 1+; TEAR DROP CELLS 1+
[2022-04-11] MEDS ORDERED: amLODIPine 5 MG TAB PO SCH (09:00)
[2022-04-11] MEDS ORDERED: ATORVASTATIN 20 MG TAB PO SCH (09:00)
[2022-04-11] MEDS ORDERED: ASPIRIN 81MG ENTERIC TABLET PO SCH (09:00)
[2022-04-11] MEDS ORDERED: ENOXAPARIN 40MG/0.4ML SYRINGE (J1650 PER 10MG) SC SCH (09:00)
[2022-04-11] MEDS ORDERED: LEVEMIR (INSULIN DETEMIR) 1 UNITS/0.01ML SC SCH (09:00)
[2022-04-11] MEDS ORDERED: EZETIMIBE 10MG TABLET (ZETIA) PO SCH (09:00)
[2022-04-11] MEDS ORDERED: LOSARTAN 50MG TABLET PO SCH (09:00)
[2022-04-11] MEDS ORDERED: CitaloPRAM (CeleXA) 20 MG TAB PO SCH (09:00)
[2022-04-11 09:02] VITALS: BP 146/85
[2022-04-11] MEDS ORDERED: SODIUM CHLORIDE 0.9% INJ 10 ML SYR IV PRN (10:20)
[2022-04-11 10:40] VITALS: BP 168/67
[2022-04-11] MEDS: VERAPAMIL 40 MG TAB PO SCH (10:42)
== END 2022-04-11 10:43 | disposition home or self-care (01) | DRG 178 ==
LOC: M ED 16:04 → M ED INP 18:24
PROVIDERS: ADMIT Internal Medicine Nephrology; ATTEND Internal Medicine Nephrology
PROC: 3E0333Z Introduction of Anti-inflammatory into Peripheral Vein, Percutaneous Approach (ICD-10-PCS; principal; 2022-04-10)
DX: U07.1 COVID-19 (principal); C34.90 Malignant neoplasm of unspecified part of unspecified bronchus or lung; Q61.5 Medullary cystic kidney; J44.1 Chronic obstructive pulmonary disease with (acute) exacerbation; B37.0 Candidal stomatitis; K21.9 Gastro-esophageal reflux disease without esophagitis; J84.10 Pulmonary fibrosis, unspecified; Z92.21 Personal history of antineoplastic chemotherapy; I10 Essential (primary) hypertension; E66.9 Obesity, unspecified; E11.9 Type 2 diabetes mellitus without complications; E78.5 Hyperlipidemia, unspecified; F41.9 Anxiety disorder, unspecified; E03.9 Hypothyroidism, unspecified; F32.A Depression, unspecified; K76.0 Fatty (change of) liver, not elsewhere classified; Z90.49 Acquired absence of other specified parts of digestive tract; Z87.891 Personal history of nicotine dependence; Z79.4 Long term (current) use of insulin; Z79.84 Long term (current) use of oral hypoglycemic drugs; Z79.899 Other long term (current) drug therapy; Z79.890 Hormone replacement therapy